=== PATIENT | male | born 1945 | race Caucasian/White ===

== ENCOUNTER 2017-12-27 19:42 | Emergency (ER) | payer MEDICARE ==
[2017-12-27] MEDS: LIDOCAINE/EPI/TETRACAINE TOPICAL GEL 3 ML. TP ×2 (20:07)
[2017-12-27] MEDS ORDERED: LIDOCAINE 2%/EPI 1:100,000 20 ML VIAL. IJ ×2 (20:30)
[2017-12-27] MEDS ORDERED: LIDOCAINE WITH 8.4% SOD BICARB 3 ML DISP.SYRIN. ×2 (20:50)
[2017-12-27] MEDS: LIDOCAINE WITH 8.4% SOD BICARB 3 ML DISP.SYRIN. INJ ×2 (20:50)
== END 2017-12-27 21:15 | disposition home or self-care (01) ==
LOC: ER 19:42
DX: S51.811A Laceration without foreign body of right forearm, initial encounter (principal); E11.9 Type 2 diabetes mellitus without complications; E78.00 Pure hypercholesterolemia, unspecified; J44.9 Chronic obstructive pulmonary disease, unspecified; W27.8XXA Contact with other nonpowered hand tool, initial encounter; Y93.89 Activity, other specified; Y99.8 Other external cause status; Y92.89 Other specified places as the place of occurrence of the external cause
CPT/HCPCS: 12001; 99283-25

== ENCOUNTER 2018-07-07 19:41 | Inpatient (IN) | payer MEDICARE ==
[~2018-07-07] VITALS: Ht 182.9 cm; Wt 98.0 kg
[~2018-07-07 19:41] MED LIST: ALBU2.5V5 NEB; ALPR1TAB2 PO; ASPI-612 PO; ATOR10TA PO; CHOL500016 PO; DOXA4TAB3 PO; FURO-68 PO; HYDR-2762 PO; INSU100I13 SQ; LEVO500T59 PO; METF10007 PO; PROAIR HFA8.5 GM INH; SERT25TA PO; SPIR25TA5 PO; TIOT18CA IH; TRAZ-85 PO
--- NOTE | 2018-07-07 19:55 | PHYS DOC ---
Past Medical History Past Medical History: Anxiety, Arthritis, COPD, Depression, Diabetes-Type II, High Cholesterol Additional Past Medical Histor: INSOMNIA Past Surgical History: No Surgical History Alcohol Use: Sober Drug Use: None Adult General Chief Complaint Chief Complaint: fall, injury HPI HPI Patient is a 73-year-old who lives independently who presents to the emergency department for evaluation. He states he got out of bed to go check for the male , and states he got dizzy at the door, and fell to the ground. He did not lose consciousness but he injured his left ankle. EMS reported a deformity to the left ankle. The patient does have lateral rotation of the foot relative to the ankle on the left. He denies any other painful areas or injuries. He denies having a syncopal episode. EMS found the patient's blood glucose in the 60s and did administer some dextrose. The patient denies any head injury or headache, neck pain, back pain, or any other extremity injury. He was given 8 mg of morphine by EMS in route. Palpation of the foot worsens the patient's pain. There are no alleviating factors to his symptoms. Review of Systems Review of Systems Constitutional: Denies fever or chills [] Eyes: Denies change in visual acuity, redness, or eye pain [] HENT: Denies nasal congestion or sore throat [] Respiratory: Denies cough or shortness of breath [] Cardiovascular: The patient denies any shortness of breath, chest pain, palpitations, or orthopnea [] GI: Denies abdominal pain, nausea, vomiting, bloody stools or diarrhea [] : Denies dysuria or hematuria [] Musculoskeletal: Denies back pain or joint pain, except as noted in the history of present illness. [] Integument: Denies rash or skin lesions [] Neurologic: Denies headache, focal weakness or sensory changes [] Endocrine: Denies polyuria or polydipsia [] All other systems were reviewed and found to be within normal limits, except as documented in this note. Current Medications Current Medications Current Medications Medications (Trade) Dose Ordered Sig/Rajendra Start Time Stop Time Status Last Admin Dose Admin Dextrose/Lactated Ringer's 1,000 ml @ 75 mls/hr 1X ONCE 07/07/18 20:00 07/08/18 09:19 07/07/18 20:00 75 MLS/HR Morphine Sulfate (Morphine Sulfate) 5 mg Q2H PRN 07/07/18 20:00 07/07/18 20:35 5 MG Sodium Chloride 1,000 ml @ 1,000 mls/hr 1X ONCE 07/07/18 21:00 07/07/18 21:59 DC 07/07/18 20:43 1,000 MLS/HR Allergies Allergies Allergies Coded Allergies Type Severity Reaction Last Updated Verified No Known Drug Allergies 09/24/16 No Physical Exam Physical Exam PHYSICAL EXAM: CONSTITUTIONAL: Well developed, well nourished HEAD: normocephalic, atraumatic EENT: PERRL, EOMI. Conjunctivae normal color, sclerae non-icteric; moist mucous membranes. NECK: Supple, non-tender; no meningismus. There is full, painless range of motion of the cervical spine, without any focal bony midline tenderness to palpation. LUNGS: Lungs CTA, breathing even and unlabored. Normal air movement. HEART: Regular rate and rhythm, no murmur CHEST: No deformity; non-tender ABDOMEN: The abdomen is soft, and non-tender, no masses or bruits. EXTREM: Normal ROM; no deformity, no calf tenderness. Normal pulses palpable in all extremities. There is no pedal edema. There is soft tissue swelling in the area of the left ankle, with some tenderness to palpation. There is lateral rotation of the foot relative to the ankle. The foot itself is nontender. Distal PMS are intact on the foot, with a strong dorsalis pedis pulse. SKIN: No rash; no diaphoresis NEURO: Alert; normal speech and cognition; CN's grossly intact; strength grossly intact without focal deficit. BACK: No CVA TTP.There is no bony tenderness to palpation of the thoracic or lumbar spine. Current Patient Data Vital Signs Vital Signs Date Time Temp Pulse Resp B/P (MAP) Pulse Ox O2 Delivery O2 Flow Rate FiO2 07/07/18 20:06 96 18 96 07/07/18 19:55 98.0 117/75 (89) Room Air 98.0 Lab Values Laboratory Tests Test 07/07/18 20:20 White Blood Count 12.9 x10^3/uL (4.0-11.0) H Red Blood Count 4.67 x10^6/uL (4.30-5.70) Hemoglobin 13.9 g/dL (13.0-17.5) Hematocrit 42.4 % (39.0-53.0) Mean Corpuscular Volume 91 fL (79-100) Mean Corpuscular Hemoglobin 30 pg (25-35) Mean Corpuscular Hemoglobin Concent 33 g/dL (31-37) Red Cell Distribution Width 15.5 % (11.5-14.5) H Platelet Count 219 x10^3/uL (140-400) Neutrophils (%) (Auto) 73 % (31-73) Lymphocytes (%) (Auto) 19 % (24-48) L Monocytes (%) (Auto) 6 % (0-9) Eosinophils (%) (Auto) 1 % (0-3) Basophils (%) (Auto) 0 % (0-3) Neutrophils # (Auto) 9.4 x10^3uL (1.8-7.7) H Lymphocytes # (Auto) 2.5 x10^3/uL (1.0-4.8) Monocytes # (Auto) 0.8 x10^3/uL (0.0-1.1) Eosinophils # (Auto) 0.1 x10^3/uL (0.0-0.7) Basophils # (Auto) 0.1 x10^3/uL (0.0-0.2) Prothrombin Time 12.9 SEC (11.7-14.0) Prothrombin Time INR 1.0 (0.8-1.1) Sodium Level 140 mmol/L (136-145) Potassium Level 4.5 mmol/L (3.5-5.1) Chloride Level 108 mmol/L (98-107) H Carbon Dioxide Level 17 mmol/L (21-32) L Anion Gap 15 (6-14) H Blood Urea Nitrogen 13 mg/dL (8-26) Creatinine 1.2 mg/dL (0.7-1.3) Estimated GFR (Cockcroft-Gault) 59.7 Glucose Level 73 mg/dL (70-99) Calcium Level 9.3 mg/dL (8.5-10.1) Laboratory Tests 07/07/18 20:20 Laboratory Tests 07/07/18 20:20 EKG EKG [Normal sinus rhythm at a rate of 98 bpm, normal axis, normal intervals, nonspecific ST/T changes.] Radiology/Procedures Radiology/Procedures [PROCEDURE: ANKLE LEFT 2V Indication:LEFT ANKLE PAIN AFTER FALL TODAY TECHNIQUE: 2 views of the left ankle COMPARISON:None FINDINGS: Multifragment fracture is seen of the distal diaphysis of the tibia and fibula with moderate displacement. Ankle mortise is intact. The fracture does not seem to extend to the articular surface. Moderate ankle edema. IMPRESSION: Multifragment fracture of the tibia and fibula.] ER physician preliminary chest x-ray interpretation: No acute disease. PROCEDURE: CT LOWER EXTREMITY WO LEFT PQRS Compliance statement: One or more of the following individualized dose reduction techniques were utilized for this examination: 1. Automated exposure control. 2. Adjustment of the mA and/or kV according to patient size. 3. Use of iterative reconstruction technique. INDICATION: Left leg injury. TECHNIQUE: CT of the left leg without IV contrast COMPARISON: None FINDINGS: Moderately displaced multifragment fracture is seen of the distal tibial diaphysis with no extension to the articular surface. Moderately displaced Multifragment fracture is seen of the distal fibular diaphysis with no extension to the ankle mortise. Ankle mortise is intact. Nondisplaced fractures are seen of the proximal metaphysis of the second, third, fourth metacarpals. No fracture of the proximal tibia or fibula. Knee joint is intact. Soft tissue swelling seen in the lower leg the region of fracture. IMPRESSION: 1. Fracture of the distal diaphysis of the tibia and fibula as described above. 2. Nondisplaced fractures of the proximal metaphysis of the second-fourth metatarsal. Course & Med Decision Making Course & Med Decision Making Pertinent Labs and Imaging studies reviewed. (See chart for details) 9:10 PM: The patient's condition remains stable at this time. A posterior short leg splint with a stirrup has been applied. PMS intact distally post-splint application. I spoke with orthopedics, nurse practitioner for Dr. Villatoro, who requested a CT and the patient will be admitted for treatment. The hospitalist will admit the patient. The patient is noted to have a mild anion gap acidosis. He is currently normotensive. The exact etiology of this is uncertain. Blood cultures and urinalysis and lactic acid will be checked. 11:35 PM: The patient remained hemodynamically stable. His lactic acid is noted to be elevated, the exact etiology of this is unknown at this time. The patient will be given empiric and biotics and IV hydration. His throat was reassessed, he remains with a normal pulse. He has no other painful areas at this time. He remains nontoxic appearing, with a blood pressure of 138 over 67, heart rate of 74 CRITICAL CARE TIME: 45 Minutes, excluding any procedures and care of other patients. Dragon Disclaimer Dragon Disclaimer This electronic medical record was generated, in whole or in part, using a voice recognition dictation system. Departure Departure Impression: Primary Impression: Fracture of distal end of tibia with fibula Disposition: ADMITTED INPATIENT Admitting Physician: Elvis Obrien Condition: STABLE Referrals: YI LAURENT MD (PCP) ZACH MARCELO MD Jul 07, 2018 19:55
[2018-07-07] MEDS ORDERED: IV DEXTROSE 5%-LACT RINGERS 1,000 ML IV ONE ×2 (20:00→21:45)
[2018-07-07 20:29] LABS: BASO # 0.1 x10^3/uL (0.0-0.2); BASO % 0 % (0-3); EOS # 0.1 x10^3/uL (0.0-0.7); EOS % 1 % (0-3); HEMATOCRIT 42.4 % (39.0-53.0); HEMOGLOBIN 13.9 g/dL (13.0-17.5); LYMPH # 2.5 x10^3/uL (1.0-4.8); LYMPH % 19 % (24-48); MEAN CORPUSCULAR HEMOGLOBIN 30 pg (25-35); MEAN CORPUSCULAR HGB CONC 33 g/dL (31-37); MEAN CORPUSCULAR VOLUME 91 fL (79-100); MONO # 0.8 x10^3/uL (0.0-1.1); MONO % 6 % (0-9); NEUT # 9.4 x10^3uL (1.8-7.7); NEUT % 73 % (31-73); PLATELET COUNT 219 x10^3/uL (140-400); RED BLOOD COUNT 4.67 x10^6/uL (4.30-5.70); RED CELL DISTRIBUTION WIDTH 15.5 % (11.5-14.5); WHITE BLOOD COUNT 12.9 x10^3/uL (4.0-11.0)
[2018-07-07 20:34] LABS: PROTHROMBIN TIME PATIENT 12.9 SEC (11.7-14.0)
[2018-07-07] MEDS: MORPHINE SULFATE 10 MG/ML VIAL. IV PRN ×2 (20:35→22:51)
--- NOTE | 2018-07-07 20:35 | RAD ---
Indication:LEFT ANKLE PAIN AFTER FALL TODAY TECHNIQUE: 2 views of the left ankle COMPARISON:None FINDINGS: Multifragment fracture is seen of the distal diaphysis of the tibia and fibula with moderate displacement. Ankle mortise is intact. The fracture does not seem to extend to the articular surface. Moderate ankle edema. IMPRESSION: Multifragment fracture of the tibia and fibula. Electronically signed by: Moreno Woodall DO (07/07/2018 8:32 PM) [facility]
[2018-07-07 20:43] LABS: CALCIUM 9.3 mg/dL (8.5-10.1); CREATININE 1.2 mg/dL (0.7-1.3); GFR 59.7; POTASSIUM 4.5 mmol/L (3.5-5.1)
[2018-07-07] MEDS ORDERED: IV NORMAL SALINE 1000ML BAG 1,000 ML IV ONE (21:00)
--- NOTE | 2018-07-07 21:28 | RAD ---
PQRS Compliance statement: One or more of the following individualized dose reduction techniques were utilized for this examination: 1. Automated exposure control. 2. Adjustment of the mA and/or kV according to patient size. 3. Use of iterative reconstruction technique. INDICATION: Left leg injury. TECHNIQUE: CT of the left leg without IV contrast COMPARISON: None FINDINGS: Moderately displaced multifragment fracture is seen of the distal tibial diaphysis with no extension to the articular surface. Moderately displaced Multifragment fracture is seen of the distal fibular diaphysis with no extension to the ankle mortise. Ankle mortise is intact. Nondisplaced fractures are seen of the proximal metaphysis of the second, third, fourth metacarpals. No fracture of the proximal tibia or fibula. Knee joint is intact. Soft tissue swelling seen in the lower leg the region of fracture. IMPRESSION: 1. Fracture of the distal diaphysis of the tibia and fibula as described above. 2. Nondisplaced fractures of the proximal metaphysis of the second-fourth metatarsal. Electronically signed by: Moreno Woodall DO (07/07/2018 9:25 PM) [facility]
--- NOTE | 2018-07-07 21:52 | RAD ---
PROCEDURE: PORTABLE CHEST 1V CLINICAL INDICATION: LEFT ANKLE PAIN AFTER FALL COMPARISON: 09/24/2016 FINDINGS: No pneumothorax identified. Cardiac and mediastinal contours unremarkable. No pulmonary consolidation or acute airspace disease. No acute osseous abnormalities identified. IMPRESSION: No pulmonary consolidation or acute airspace disease. Electronically signed by: Moreno Woodall DO (07/07/2018 9:49 PM) [facility]
[2018-07-07 23:45] VITALS: BP 142/74
[2018-07-07] MEDS: IV NORMAL SALINE 1000ML BAG 1,000 ML IV SCH (23:45)
[2018-07-08] MEDS: MORPHINE SULFATE 10 MG/ML VIAL. IV PRN ×5 (00:39→10:42)
[2018-07-08] MEDS: IV NORMAL SALINE 1000ML BAG 1,000 ML IV SCH ×2 (00:54)
[2018-07-08] MEDS ORDERED: cefTRIAXone IV Push 1 GM VIAL. IVP ONE (01:00)
[2018-07-08 03:00] VITALS: BP 99/53
--- NOTE | 2018-07-08 06:22 | EKG ---
[facility] [address] [place] [address] Test Date: 2018-07-07 Test Time: 19:50:22 Pat Name: MARTINE PICHARDO Department: Room: 436 Gender: M [employer]order [employer]: : 1945 Requested By: ZACH MARCELO Order Number: [id number] Reading MD: Marck Perez MD Measurements Intervals [place] Rate: 98 P: 70 [place]: 156 QRS: 12 QRSD: 92 T: 49 QT: 370 QTc: 474 Interpretive Statements SINUS RHYTHM Electronically Signed On 07-12-2018 11:46:15 CDT by Marck Perez MD
[2018-07-08 07:00] VITALS: BP 122/49
[2018-07-08 07:02] LABS: BASO % 0 % (0-3); EOS # 0.1 x10^3/uL (0.0-0.7); EOS % 1 % (0-3); HEMATOCRIT 35.3 % (39.0-53.0); HEMOGLOBIN 11.7 g/dL (13.0-17.5); LYMPH # 2.3 x10^3/uL (1.0-4.8); LYMPH % 24 % (24-48); MEAN CORPUSCULAR HEMOGLOBIN 30 pg (25-35); MEAN CORPUSCULAR HGB CONC 33 g/dL (31-37); MEAN CORPUSCULAR VOLUME 91 fL (79-100); MONO % 11 % (0-9); NEUT # 6.2 x10^3uL (1.8-7.7); NEUT % 64 % (31-73); PLATELET COUNT 173 x10^3/uL (140-400); RED BLOOD COUNT 3.88 x10^6/uL (4.30-5.70); RED CELL DISTRIBUTION WIDTH 15.2 % (11.5-14.5); WHITE BLOOD COUNT 9.6 x10^3/uL (4.0-11.0)
[2018-07-08 07:14] LABS: ALBUMIN 2.7 g/dL (3.4-5.0); ALBUMIN/GLOBULIN RATIO 0.9 (1.0-1.7); CREATININE 1.1 mg/dL (0.7-1.3); TOTAL BILIRUBIN 0.4 mg/dL (0.2-1.0); TOTAL PROTEIN 5.7 g/dL (6.4-8.2)
[2018-07-08] MEDS ORDERED: IV RINGERS,LACTATED 1000ML 1,000 ML IV SCH (09:03)
[2018-07-08] MEDS ORDERED: ONDANSETRON PF 4 MG/2 ML VIAL. IV PRN ×2 (09:15→17:15)
[2018-07-08] MEDS ORDERED: fentaNYL PF VIAL 100 MCG/2 ML VIAL IV PRN ×2 (09:15→17:15)
[2018-07-08] MEDS ORDERED: LIDOCAINE 1% PF 2 ML VIAL. ID PRN (09:15)
[2018-07-08] MEDS ORDERED: MORPHINE SULFATE 2 MG/ML VIAL. IV PRN ×2 (09:15→17:15)
[2018-07-08] MEDS ORDERED: HYDROmorphone 2 MG/ML VIAL IV PRN (09:15)
[2018-07-08 11:00] VITALS: BP 92/48
[2018-07-08] MEDS ORDERED: BUPIVACAINE-EPI 0.25%-1:200000 50 ML VIAL. ONE (11:39)
[2018-07-08] MEDS ORDERED: LIDOCAINE 2% PF Vial for OR 5 ML VIAL. ONE (12:25)
[2018-07-08] MEDS ORDERED: ONDANSETRON PF 4 MG/2 ML VIAL. ONE (12:26)
[2018-07-08] MEDS ORDERED: PROPOFOL 20 ML IV ONE (12:26)
[2018-07-08] MEDS ORDERED: DEXAMETHASONE SOD PHOS 20 MG/5 ML VIAL. ONE (12:26)
[2018-07-08] MEDS ORDERED: fentaNYL PF VIAL 100 MCG/2 ML VIAL ONE ×2 (12:26→14:26)
[2018-07-08] MEDS ORDERED: ROCURONIUM 50 MG/5 ML VIAL. ONE ×2 (12:57→14:46)
[2018-07-08 14:03] LABS: BILIRUBIN,URINE SMALL (NEG); CLARITY,URINE TURBID; COLOR,URINE YELLOW; NITRITE,URINE NEGATIVE (NEG); PH,URINE 5.5; PROTEIN,URINE NEGATIVE (NEG-TRACE); UROBILINOGEN,URINE 0.2 mg/dL (0.2 mg/dL)
[2018-07-08 14:26] LABS: AMORPHOUS SEDIMENT,UR PRESENT /HPF; BACTERIA,URINE 0 /HPF (0-FEW); RBC,URINE 0 /HPF (0-2); WBC,URINE 0 /HPF (0-4)
--- NOTE | 2018-07-08 15:51 | HP ---
ADMIT DATE: CHIEF COMPLAINT: Fall with left ankle pain. HISTORY OF PRESENT ILLNESS: The patient is a pleasant 73-year-old male who was standing. He tried to get out of bed to check the mail and got dizzy and fell to the floor. He twisted his ankle, he has got a tib-fib fracture. He rates his pain a 10/10. He has associated weakness, worse with moving. I have discussed the case with the ER physician. We are going to admit the patient and consult Orthopedics. The patient is probably on surgery today. PAST MEDICAL HISTORY: Anxiety, arthritis, COPD, depression, diabetes, hyperlipidemia, and insomnia. ALLERGIES: None. FAMILY HISTORY: Coronary artery disease. SOCIAL HISTORY: He is retired. He does not drink, smoke or take drugs. I think he lives alone. MEDICATIONS: Reviewed, please refer to the MRAD. REVIEW OF SYSTEMS: GENERAL: No history of weight change, weakness or fevers. SKIN: No bruising, hair changes or rashes. EYES: No blurred, double or loss of vision. NOSE AND THROAT: No history of nosebleeds, hoarseness or sore throat. HEART: No history of palpitations, chest pain or shortness of breath on exertion. LUNGS: Denies cough, hemoptysis, wheezing or shortness of breath. GASTROINTESTINAL: Denies changes in appetite, nausea, vomiting, diarrhea or constipation. GENITOURINARY: No history of frequency, urgency, hesitancy or nocturia. NEUROLOGIC: Denies history of numbness, tingling, tremor or weakness. PSYCHIATRIC: No history of panic, anxiety or depression. ENDOCRINE: No history of heat or cold intolerance, polyuria or polydipsia. EXTREMITIES: He complains of left ankle pain. PHYSICAL EXAMINATION: VITAL SIGNS: Temperature afebrile, pulse 76, respirations 20, blood pressure 137/94. GENERAL: He is alert, cooperative, weak. HEART: Normal S1, S2. LUNGS: Clear. ABDOMEN: Soft. EXTREMITIES: Left lower extremity is in a brace. ENDOCRINE: No thyromegaly. LYMPHATICS: No cervical nodes. HEMATOPOIETIC: No bruising. LABORATORY DATA: Hemoglobin is 13.9. Electrolytes are essentially normal. White count is a little high at 12. ASSESSMENT AND PLAN: Distal tibia-fibula fracture. The patient has been admitted. We will consult Orthopedics, p.r.n. narcotics, IV fluids, try to resume his home meds. Postoperatively, he is going to need wound care, aggressive physical therapy, occupational therapy and probably alf. GIL KRAUSE DO DR: KAILYN/dara JOB#: [id number] / [id number]
[2018-07-08] MEDS ORDERED: NEOSTIGMINE 10 MG/10 ML VIAL. ONE (16:26)
[2018-07-08] MEDS ORDERED: GLYCOPYRROLATE 1 MG/5 ML VIAL. ONE (16:26)
[2018-07-08] MEDS ORDERED: SEVOFLURANE > 120 MINUTES. IH ONE (16:30)
[2018-07-08] MEDS ORDERED: oxyCODONE IR 5 MG TABLET PO PRN (17:15)
[2018-07-08] MEDS ORDERED: POLYETHYLENE GLYCOL 3350 17 GM PACKET. PO PRN (17:15)
[2018-07-08] MEDS ORDERED: DEXTROSE 50% 25 GM / 50ML DISP.SYRIN. IV PRN (17:15)
[2018-07-08] MEDS ORDERED: MORPHINE SULFATE 2 MG/ML VIAL. ONE (17:17)
--- NOTE | 2018-07-08 17:17 | PDOC2 ---
CONSULT Date of Consult Date of Consult DATE: 07/08/18 TIME: 17:16 Reason for Consult Reason for Consult: Left tibia and fibula fractures Identification/Chief Complaint Chief Complaint Left leg pain Source Source: Chart review, Patient History of Present Illness Reason for Visit: This 73-year-old man to check for the mail, and fell. He had a deformity of the leg was brought to the hospital by EMS. He reports pain in the ankle. He normally uses a rolling walker or a cane, due to multiple issues perhaps hip arthritis. He is retired and lives alone. He still drives. 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 ALCOHOL: rare Drugs: None Lives: Alone Current Problem List Problem List Problems Medical Problems: (1) Fracture of distal end of tibia with fibula Status: Acute Current Medications Current Medications Current Medications Dextrose/Lactated Ringer's 1,000 ml @ 75 mls/hr 1X ONCE IV Last administered on 07/07/18at 20:00; Start 07/07/18 at 20:00; Stop 07/08/18 at 09:19; Status DC Morphine Sulfate (Morphine Sulfate) 5 mg Q2H PRN IV pain Last administered on at 10:42; Start 07/07/18 at 20:00 Sodium Chloride 1,000 ml @ 1,000 mls/hr 1X ONCE IV Last administered on at 20:43; Start 07/07/18 at 21:00; Stop 07/07/18 at 21:59; Status DC Dextrose/Lactated Ringer's 1,000 ml @ 125 mls/hr 1X ONCE IV Last administered on 07/07/18at 21:45; Start 07/07/18 at 21:45; Stop 07/08/18 at 05:44 ; Status DC Sodium Chloride 1,000 ml @ 1,000 mls/hr Q1H IV Last administered on 07/08/18at 00:54; Start 07/07/18 at 23:00; Stop 07/08/18 at 01:19; Status DC Ceftriaxone Sodium 50 ml @ 100 mls/hr 1X ONCE IV ; Start 07/07/18 at 23:00; Stop 07/07/18 at 23:29; Status Cancel Ceftriaxone Sodium (Rocephin) 1 gm 1X ONCE IVP Last administered on 07/08/18at 01:00; Start 07/08/18 at 01:00; Stop 07/08/18 at 01:01; Status DC Ondansetron HCl (Zofran) 4 mg PRN Q6HRS PRN IV NAUSEA/VOMITING; Start 07/08/18 at 09:15; Stop 07/08/18 at 23:00 Fentanyl Citrate (Fentanyl 2ml Vial) 25 mcg PRN Q5MIN PRN IV MILD PAIN; Start 07/08/18 at 09:15; Stop 07/08/18 at 23:00 Fentanyl Citrate (Fentanyl 2ml Vial) 50 mcg PRN Q5MIN PRN IV MODERATE TO SEVERE PAIN; Start 07/08/18 at 09:15; Stop 07/08/18 at 23:00 Morphine Sulfate (Morphine Sulfate) 1 mg PRN Q10MIN PRN IV SEVERE PAIN; Start 07/08/18 at 09:15; Stop 07/08/18 at 23:00 Ringer's Solution 1,000 ml @ 30 mls/hr Q24H IV Last administered on 07/08/18at 13:24; Start 07/08/18 at 09:03; Stop 07/08/18 at 21:02 Lidocaine HCl (Xylocaine-Mpf 1% 2ml Vial) 2 ml 1X PRN PRN ID IV START; Start at 09:15; Stop 07/08/18 at 23:00 Hydromorphone HCl (Dilaudid) 0.5 mg PRN Q10MIN PRN IV SEV PAIN, Second choice; Start 07/08/18 at 09:15; Stop 07/08/18 at 23:00 Prochlorperazine Edisylate (Compazine) 5 mg PACU PRN PRN IV NAUSEA, MRX1; Start 07/08/18 at 09:15; Stop 07/08/18 at 23:00 Lidocaine HCl (Lidocaine Pf 2% Vial) 5 ml STK-MED ONCE .ROUTE ; Start 07/08/18 at 12:25; Stop 07/08/18 at 12:26; Status DC Propofol 20 ml @ As Directed STK-MED ONCE IV ; Start 07/08/18 at 12:26; Stop at 12:27; Status DC Dexamethasone Sodium Phosphate (Decadron) 20 mg STK-MED ONCE .ROUTE ; Start at 12:26; Stop 07/08/18 at 12:27; Status DC Ondansetron HCl (Zofran) 4 mg STK-MED ONCE .ROUTE ; Start 07/08/18 at 12:26; Stop 07/08/18 at 12:27; Status DC Fentanyl Citrate (Fentanyl 2ml Vial) 100 mcg STK-MED ONCE .ROUTE ; Start at 12:26; Stop 07/08/18 at 12:27; Status DC Bupivacaine HCl/ Epinephrine Bitart (Marcaine-Epi 0.25%-[id number]) 50 ml STK-MED ONCE .ROUTE Last administered on 07/08/18at 16:30; Start 07/08/18 at 11:39; Stop 07/08/18 at 12:39; Status DC Rocuronium [place] (Zemuron) 50 mg STK-MED ONCE .ROUTE ; Start 07/08/18 at 12:57 ; Stop 07/08/18 at 12:58; Status DC Cefazolin Sodium/ Dextrose 50 ml @ 100 mls/hr 1X ONCE IV Last administered on 07/08/18at 14:17; Start 07/08/18 at 13:30; Stop 07/08/18 at 13:59; Status DC Fentanyl Citrate (Fentanyl 2ml Vial) 100 mcg STK-MED ONCE .ROUTE ; Start at 14:26; Stop 07/08/18 at 14:27; Status DC Rocuronium [place] (Zemuron) 50 mg STK-MED ONCE .ROUTE ; Start 07/08/18 at 14:46 ; Stop 07/08/18 at 14:47; Status DC Cefazolin Sodium/ Dextrose 50 ml @ 100 mls/hr 1X ONCE IV Last administered on 07/08/18at 16:01; Start 07/08/18 at 16:00; Stop 07/08/18 at 16:29; Status DC Glycopyrrolate (Robinul) 1 mg STK-MED ONCE .ROUTE ; Start 07/08/18 at 16:26; Stop 07/08/18 at 16:27; Status DC Neostigmine Methylsulfate (Bloxiverz) 10 mg STK-MED ONCE .ROUTE ; Start at 16:26; Stop 07/08/18 at 16:27; Status DC Sevoflurane (Ultane) 90 ml STK-MED ONCE IH ; Start 07/08/18 at 16:30; Stop 07/08 at 16:31; Status DC Oxycodone HCl (Roxicodone) 5 mg PRN Q3HRS PRN PO PAIN; Start 07/08/18 at 17:15 ; Status UNV Morphine Sulfate (Morphine Sulfate) 2 mg PRN Q1HR PRN IV PAIN; Start 07/08/18 at 17:15; Status UNV Fentanyl Citrate (Fentanyl 2ml Vial) 25 mcg PRN Q1HR PRN IV PAIN; Start at 17:15; Status UNV Senna/Docusate Sodium (Senna Plus) 1 tab DAILY PO ; Start 07/09/18 at 09:00; Status UNV Polyethylene Glycol (miraLAX PACKET) 17 gm PRN DAILY PRN PO CONSTIPATION; Start 07/08/18 at 17:15; Status UNV Vitamin D (Vitamin D3) 2,000 unit DAILY PO ; Start 07/09/18 at 09:00; Status UNV Ondansetron HCl (Zofran) 4 mg PRN Q4HRS PRN IV NAUSEA/VOMITING; Start 07/08/18 at 17:15; Status UNV Aspirin (Aureliano Aspirin) 325 mg DAILYWBKFT PO ; Start 07/09/18 at 08:00; Status UNV Magnesium Hydroxide (Milk Of Magnesia) 2,400 mg 1X PRN PRN PO CONSTIPATION; Start 07/09/18 at 06:00; Stop 07/10/18 at 05:59; Status UNV Bisacodyl (Dulcolax Supp) 10 mg 1X PRN PRN [place] CONSTIPATION; Start 07/09/18 at 16 :00; Stop 07/10/18 at 15:59; Status UNV Acetaminophen/ Hydrocodone Bitart (Lortab 7.5/325) 1 tab PRN Q4HRS PRN PO PAIN ; Start 07/08/18 at 17:15; Status UNV Morphine Sulfate (Morphine Sulfate) 4 mg PRN Q2HR PRN IV PAIN; Start 07/08/18 at 17:15; Status UNV Acetaminophen/ Hydrocodone Bitart (Lortab 7.5/325) 2 tab PRN Q4HRS PRN PO PAIN ; Start 07/08/18 at 17:15; Status UNV Dextrose (Dextrose 50%-Water Syringe) 12.5 gm PRN Q15MIN PRN IV SEE COMMENTS; Start 07/08/18 at 17:15; Status UNV Cefazolin Sodium/ Dextrose 50 ml @ 100 mls/hr Q6H IV ; Start 07/08/18 at 17:15 ; Stop 07/09/18 at 05:44; Status UNV Active Scripts Active Reported Xanax (Alprazolam) 1 Mg Tablet 1 Tab PO PRN BID Hydrocodone-Apap 7.5-325 (Hydrocodone Bit/Acetaminophen) 1 Each Tablet 1 Tab PO PRN Q6HRS PRN Proair Hfa Inhaler (Albuterol Sulfate) 8.5 Gm Hfa.aer.ad 1 Puff INH PRN Q6HRS PRN Albuterol Sulfate Neb Soln (Albuterol Sulfate) 2.5 Mg/3 Ml Vial.neb 5 Mg NEB PRN Q4HRS PRN Doxazosin Mesylate 4 Mg Tablet 4 Mg PO QODAY Lasix (Furosemide) 40 Mg Tablet 40 Mg PO DAILY Lantus Solostar (Insulin Glargine,Hum.rec.anlog) 100 Unit/1 Ml Insuln.pen 25 Unit SQ QHS Metformin Hcl 1,000 Mg Tablet 1,000 Mg PO BIDACBL Spironolactone 25 Mg Tablet 25 Mg PO DAILY Aspirin Ec (Aspirin) 81 Mg Tablet.dr 81 Mg PO DAILY Lipitor (Atorvastatin Calcium) 10 Mg Tablet 5 Mg PO HS Trazodone Hcl 50 Mg Tablet 250 Mg PO HS Zoloft (Sertraline Hcl) 25 Mg Tablet 25 Mg PO DAILY Allergies Allergies: Coded Allergies: No Known Drug Allergies (Unverified , 07/08/18) ROS General: No: Night Sweats PSYCHOLOGICAL ROS: No: Hallucinations Eyes: No Decreased vision HEENT: No: Heacaches Respiratory: No: Cough, Pleuritic Pain, Shortness of breath Cardiovascular: No Chest Pain, No Palpitations Gastrointestinal: No Vomiting, No Abdominal Pain Genitourinary: No Dysuria Musculoskeletal: Yes Joint Pain Neurological: No Behavorial Changes Physical Exam General: Alert, Cooperative HEENT: Atraumatic Lungs: Normal air movement Heart: Regular rate Abdomen: Soft Extremities: No clubbing, No cyanosis, Normal pulses, Other (the left leg is in a splint. Examination beneath the splint showed a blister on the dorsum of the foot, and ecchymosis in the mid leg area. There is no current angular deformity. There is tenderness over the fracture site. The skin over the fracture is intact. His light touch sensation is intact at the toes and he can dorsiflex and plantarflex the toes. Capillary refill is normal.) Skin: Other (ecchymosis over the fracture, no other lesion.) Neuro: Normal speech, Sensation intact Psych/Mental Status: Mental status NL, Mood NL Vitals VITALS Vital Signs Date Time Temp Pulse Resp B/P (MAP) Pulse Ox O2 Delivery O2 Flow Rate FiO2 07/08/18 13:00 99.2 97 20 107/55 95 Room Air 4 99.2 Labs Labs Laboratory Tests Test 07/07/18 12:40 07/07/18 20:20 07/07/18 21:50 07/08/18 06:35 Urine Collection Type Unknown Urine Color Yellow Urine Clarity Turbid Urine pH 5.5 Urine Specific [place] 1.025 Urine Protein Negative mg/dL (NEG-TRACE) Urine Glucose (UA) Negative mg/dL (NEG) Urine Ketones (Stick) Trace mg/dL (NEG) Urine Blood Negative (NEG) Urine Nitrite Negative (NEG) Urine Bilirubin Small (NEG) Urine Urobilinogen Dipstick 0.2 mg/dL (0.2 mg/dL) Urine Leukocyte Esterase Negative (NEG) Urine RBC 0 /HPF (0-2) Urine WBC 0 /HPF (0-4) Urine Amorphous Sediment Present /HPF Urine Bacteria 0 /HPF (0-FEW) White Blood Count 12.9 x10^3/uL (4.0-11.0) 9.6 x10^3/uL (4.0-11.0) Red Blood Count 4.67 x10^6/uL (4.30-5.70) 3.88 x10^6/uL (4.30-5.70) Hemoglobin 13.9 g/dL (13.0-17.5) 11.7 g/dL (13.0-17.5) Hematocrit 42.4 % (39.0-53.0) 35.3 % (39.0-53.0) Mean Corpuscular Volume 91 fL (79-100) 91 fL (79-100) Mean Corpuscular Hemoglobin 30 pg (25-35) 30 pg (25-35) Mean Corpuscular Hemoglobin Concent 33 g/dL (31-37) 33 g/dL (31-37) Red Cell Distribution Width 15.5 % (11.5-14.5) 15.2 % (11.5-14.5) Platelet Count 219 x10^3/uL (140-400) 173 x10^3/uL (140-400) Neutrophils (%) (Auto) 73 % (31-73) 64 % (31-73) Lymphocytes (%) (Auto) 19 % (24-48) 24 % (24-48) Monocytes (%) (Auto) 6 % (0-9) 11 % (0-9) Eosinophils (%) (Auto) 1 % (0-3) 1 % (0-3) Basophils (%) (Auto) 0 % (0-3) 0 % (0-3) Neutrophils # (Auto) 9.4 x10^3uL (1.8-7.7) 6.2 x10^3uL (1.8-7.7) Lymphocytes # (Auto) 2.5 x10^3/uL (1.0-4.8) 2.3 x10^3/uL (1.0-4.8) Monocytes # (Auto) 0.8 x10^3/uL (0.0-1.1) 1.0 x10^3/uL (0.0-1.1) Eosinophils # (Auto) 0.1 x10^3/uL (0.0-0.7) 0.1 x10^3/uL (0.0-0.7) Basophils # (Auto) 0.1 x10^3/uL (0.0-0.2) 0.0 x10^3/uL (0.0-0.2) Prothrombin Time 12.9 SEC (11.7-14.0) Prothromb Time International Ratio 1.0 (0.8-1.1) Sodium Level 140 mmol/L (136-145) 140 mmol/L (136-145) Potassium Level 4.5 mmol/L (3.5-5.1) 4.0 mmol/L (3.5-5.1) Chloride Level 108 mmol/L (98-107) 108 mmol/L (98-107) Carbon Dioxide Level 17 mmol/L (21-32) 24 mmol/L (21-32) Anion Gap 15 (6-14) 8 (6-14) Blood Urea Nitrogen 13 mg/dL (8-26) 11 mg/dL (8-26) Creatinine 1.2 mg/dL (0.7-1.3) 1.1 mg/dL (0.7-1.3) Estimated GFR (Cockcroft-Gault) 59.7 66.0 Glucose Level 73 mg/dL (70-99) 125 mg/dL (70-99) Calcium Level 9.3 mg/dL (8.5-10.1) 8.0 mg/dL (8.5-10.1) Lactic Acid Level 5.0 mmol/L (0.4-2.0) 1.0 mmol/L (0.4-2.0) BUN/Creatinine Ratio 10 (6-20) Total Bilirubin 0.4 mg/dL (0.2-1.0) Aspartate Amino Transf (AST/SGOT) 12 U/L (15-37) Alanine Aminotransferase (ALT/SGPT) 15 U/L (16-63) Alkaline Phosphatase 80 U/L (46-116) Total Protein 5.7 g/dL (6.4-8.2) Albumin 2.7 g/dL (3.4-5.0) Albumin/Globulin Ratio 0.9 (1.0-1.7) 25-Hydroxy Vitamin D Total 39.0 ng/mL (30-100) Test 07/08/18 13:37 Glucose (Fingerstick) 116 mg/dL (70-99) Laboratory Tests Test 07/07/18 20:20 07/07/18 21:50 07/08/18 06:35 07/08/18 13:37 White Blood Count 12.9 x10^3/uL (4.0-11.0) 9.6 x10^3/uL (4.0-11.0) Red Blood Count 4.67 x10^6/uL (4.30-5.70) 3.88 x10^6/uL (4.30-5.70) Hemoglobin 13.9 g/dL (13.0-17.5) 11.7 g/dL (13.0-17.5) Hematocrit 42.4 % (39.0-53.0) 35.3 % (39.0-53.0) Mean Corpuscular Volume 91 fL (79-100) 91 fL (79-100) Mean Corpuscular Hemoglobin 30 pg (25-35) 30 pg (25-35) Mean Corpuscular Hemoglobin Concent 33 g/dL (31-37) 33 g/dL (31-37) Red Cell Distribution Width 15.5 % (11.5-14.5) 15.2 % (11.5-14.5) Platelet Count 219 x10^3/uL (140-400) 173 x10^3/uL (140-400) Neutrophils (%) (Auto) 73 % (31-73) 64 % (31-73) Lymphocytes (%) (Auto) 19 % (24-48) 24 % (24-48) Monocytes (%) (Auto) 6 % (0-9) 11 % (0-9) Eosinophils (%) (Auto) 1 % (0-3) 1 % (0-3) Basophils (%) (Auto) 0 % (0-3) 0 % (0-3) Neutrophils # (Auto) 9.4 x10^3uL (1.8-7.7) 6.2 x10^3uL (1.8-7.7) Lymphocytes # (Auto) 2.5 x10^3/uL (1.0-4.8) 2.3 x10^3/uL (1.0-4.8) Monocytes # (Auto) 0.8 x10^3/uL (0.0-1.1) 1.0 x10^3/uL (0.0-1.1) Eosinophils # (Auto) 0.1 x10^3/uL (0.0-0.7) 0.1 x10^3/uL (0.0-0.7) Basophils # (Auto) 0.1 x10^3/uL (0.0-0.2) 0.0 x10^3/uL (0.0-0.2) Prothrombin Time 12.9 SEC (11.7-14.0) Prothromb Time International Ratio 1.0 (0.8-1.1) Sodium Level 140 mmol/L (136-145) 140 mmol/L (136-145) Potassium Level 4.5 mmol/L (3.5-5.1) 4.0 mmol/L (3.5-5.1) Chloride Level 108 mmol/L (98-107) 108 mmol/L (98-107) Carbon Dioxide Level 17 mmol/L (21-32) 24 mmol/L (21-32) Anion Gap 15 (6-14) 8 (6-14) Blood Urea Nitrogen 13 mg/dL (8-26) 11 mg/dL (8-26) Creatinine 1.2 mg/dL (0.7-1.3) 1.1 mg/dL (0.7-1.3) Estimated GFR (Cockcroft-Gault) 59.7 66.0 Glucose Level 73 mg/dL (70-99) 125 mg/dL (70-99) Calcium Level 9.3 mg/dL (8.5-10.1) 8.0 mg/dL (8.5-10.1) Lactic Acid Level 5.0 mmol/L (0.4-2.0) 1.0 mmol/L (0.4-2.0) BUN/Creatinine Ratio 10 (6-20) Total Bilirubin 0.4 mg/dL (0.2-1.0) Aspartate Amino Transf (AST/SGOT) 12 U/L (15-37) Alanine Aminotransferase (ALT/SGPT) 15 U/L (16-63) Alkaline Phosphatase 80 U/L (46-116) Total Protein 5.7 g/dL (6.4-8.2) Albumin 2.7 g/dL (3.4-5.0) Albumin/Globulin Ratio 0.9 (1.0-1.7) 25-Hydroxy Vitamin D Total 39.0 ng/mL (30-100) Glucose (Fingerstick) 116 mg/dL (70-99) Images Images X-rays and CT scan show a comminuted tibial shaft fracture. There is also a comminuted distal fibula fracture. The tibia fracture is segmental. CT scan shows no involvement of the tibiotalar joint. Assessment/Plan Assessment/Plan Closed left tibial shaft fracture. Closed left distal fibula fracture. Recommended open treatment and internal fixation of the fibula fracture with plate and screws. I recommended intramedullary nail fixation of the tibia. We discussed potential risks such as infection neurovascular injury bleeding malunion nonunion blood clots or other potential surgical or anesthetic complications. All of his questions about surgery were answered and he desires to proceed. The surgical site was marked by me. AIYANA LEMUS MD Jul 08, 2018 17:17
[2018-07-08] MEDS: PROCHLORPERAZINE 10 MG/2 ML VIAL. IV PRN ×2 (17:30→17:46)
[2018-07-08] MEDS: fentaNYL PF VIAL 100 MCG/2 ML VIAL IV PRN ×2 (17:31→17:46)
--- NOTE | 2018-07-08 17:33 | PDOC4 ---
Operative Note Operative Note Date of Procedure: July 08, 2018 Pre-Op Diagnosis: * Displaced segmental fracture of shaft of left tibia, initial encounter for closed fracture S82.262A. * Displaced segmental fracture of shaft of left fibula, initial encounter for closed fracture S82.462A Post-Op Diagnosis: Same Procedure: * Treatment of tibial shaft fracture by intramedullary implant with interlocking screws CPT 17012 * Treatment of lateral malleolus fracture with plate fixation CPT 12964 Surgeon: Aiyana Villatoro MD City Secretary: Mary Braxton PA-C Anesthesia: General EBL: 200 mL Specimens Obtained: none Complications: none Drains: none Tourniquet time: 25 minutes Implant Company: [employer] Indications for Procedure: This patient is a 73-year-old man who fell, sustaining closed tibia shaft and distal fibula comminuted segmental closed fractures. The patient and I discussed the risks, benefits and alternatives of surgery. I recommended intramedullary fixation for the tibial shaft fracture and I discussed with him the potential risks of that such as bleeding, infection , nonunion, malunion, neurovascular injury, or other potential surgical or anesthetic complications. I discussed internal fixation with plate and screws of the lateral malleolus fracture. All of his questions about surgery were answered and he desired to proceed. Written consent was obtained. Procedure in Detail: The patient was identified in the preoperative holding area. The correct left leg was marked by me. The patient was taken to the operating room where general anesthesia was used. The patient was positioned supine on the operating table. Preoperative antibiotics were given intravenously. A timeout procedure was performed. A tourniquet was used on the upper thigh. The limb was prepped and draped sterilely. Sterile drapes were applied. Sterile glove was placed over the foot. Sterile triangles were used for positioning of the leg. The large image intensifier was used throughout the procedure, and all the images were interpreted intraoperatively by me. The [employer] [place] Distractor was used. A Schanz pin was placed in the proximal tibia. Another Schanz pin was placed in the calcaneus, avoiding neurovascular structures. The image intensifier used, and traction was applied through the distractor, showing anatomic reduction of the tibia fracture. Also a Coban was used around the catheter to help reduce and compress the segmental fragment. A longitudinal incision was made over the patellar tendon. The tendon was retracted laterally, and an entry point along the superior aspect of the tibia and the extra articular portion was identified. An awl was used to spike the tibia, and the entry to the shaft was confirmed on the large image intensifier in the AP and lateral planes. A guide wire was placed down the intramedullary canal to the fracture site. The awl was removed I then advanced the guide wire into the distal fragment, and checked the positioning of the tip of the beaded guide wire ending just above the ankle joint in the AP and lateral planes. A measuring guide was used, and 360 mm was chosen as the nail length. Sequential reaming was then performed, to 1.5 mm greater than the nail size, while maintaining the reduction. Outer gloves were changed and the incisions were irrigated before inserting the hardware.The 10 x 330 mm nail was then inserted without difficulty, and the position just above the ankle joint was confirmed radiographically. The guide wire was removed. The distal locking was now performed with the image intensifier, and 2 cross lock screws were placed. The universal distractor was removed.Proximal locking was placed through the insertion guide, in the static holes. Two bicortical 5.0 mm fully threaded locking screws were placed without difficulty, and confirmed on the image intensifier. The insertion guide was removed. Antibiotics were redosed. Outer gloves were changed. An Esmarch bandage was used to exsanguinate the limb and the tourniquet was inflated to 350 mmHg. A lateral incision was used over the distal portion of the lateral malleolus. Sharp dissection was used and Bovie electrocautery was used for hemostasis. Comminuted multi fragmentary fracture was identified. This was not able to be reduced with complete interdigitation due to the extensive fragmentation. I did a preliminary reduction, using the contours of the fibula and the assess the length and rotation radiographically. A precontoured Franc lateral malleolus locking plate was attached to the proximal and distal fragments initially using the nonlocking screws for good compression of the plate to the bone. In the distal fragment locking screws were applied and the initial nonlocking screw was removed and replaced with a locking screw. Nonlocking screws were allowed to stay in the proximal fragment and the shaft, but additional locking screws were used. Satisfactory reduction and fixation was obtained. Copious irrigation was used. Bovie electrocautery was used for hemostasis. A preliminary closure was performed of the deep fascia using #1 Vicryl [id number] sutures. The tourniquet was released. Bovie electrocautery was used for hemostasis. Copious irrigation was used. The incisions were closed in layers. #1 Vicryl was used in [id number] fashion in the parapatellar tendon fascia. 2-0 Vicryl was used in the subcutaneous cutaneous tissues by Mary. She then closed the skin with ganesh. She injected 0.25% Marcaine with epinephrine. She placed a sterile dressing and a splint. Needle and sponge counts were correct. There were no apparent complications. AIYANA VILLATORO MD Jul 08, 2018 17:33
--- NOTE | 2018-07-08 17:57 | RAD ---
Indication: Postop ORIF. TECHNIQUE: AP and lateral views of the left tibia and fibula COMPARISON: Previous study from 07/07/2018 FINDINGS: Status post ORIF of distal tibial fracture with intramedullary gomez. Status post ORIF of distal fibular fracture with plate and screws. The fracture fragments demonstrate improved alignment compared to previous study. Ankle mortise is intact. Diffuse leg edema. IMPRESSION: Expected post surgical changes from recent ORIF of distal tibial and fibular fracture. Electronically signed by: Moreno Woodall DO (07/08/2018 5:54 PM) [facility]
[2018-07-08] MEDS ORDERED: ALBUTEROL SULFATE 2.5 MG/3 ML NEBU. NEB ONE (18:30)
[2018-07-08 19:00] VITALS: BP 91/51
[2018-07-08] MEDS: MORPHINE SULFATE 4 MG/ML VIAL. IV PRN ×2 (21:21→23:53)
[2018-07-08 23:00] VITALS: BP 104/54
[2018-07-09] MEDS: MORPHINE SULFATE 4 MG/ML VIAL. IV PRN ×4 (02:08→13:35)
[2018-07-09] MEDS: HYDROcodone/APAP 7.5/325MG 1 TAB TABLET PO PRN ×4 (02:09→20:56)
[2018-07-09 03:00] VITALS: BP 96/56
[2018-07-09 05:31] LABS: BASO % 0 % (0-3); EOS % 0 % (0-3); HEMATOCRIT 28.9 % (39.0-53.0); HEMOGLOBIN 9.6 g/dL (13.0-17.5); LYMPH # 1.5 x10^3/uL (1.0-4.8); LYMPH % 12 % (24-48); MEAN CORPUSCULAR HEMOGLOBIN 30 pg (25-35); MEAN CORPUSCULAR HGB CONC 33 g/dL (31-37); MEAN CORPUSCULAR VOLUME 92 fL (79-100); MONO # 1.5 x10^3/uL (0.0-1.1); MONO % 12 % (0-9); NEUT # 9.7 x10^3uL (1.8-7.7); NEUT % 77 % (31-73); PLATELET COUNT 175 x10^3/uL (140-400); RED BLOOD COUNT 3.15 x10^6/uL (4.30-5.70); RED CELL DISTRIBUTION WIDTH 14.7 % (11.5-14.5); WHITE BLOOD COUNT 12.6 x10^3/uL (4.0-11.0)
[2018-07-09 05:52] LABS: CALCIUM 7.9 mg/dL (8.5-10.1); GFR 73.7; POTASSIUM 4.3 mmol/L (3.5-5.1)
[2018-07-09] MEDS ORDERED: MAGNESIUM HYDROXIDE 2,400 MG/30 ML ORAL.SUSP. PO PRN (06:00)
[2018-07-09 07:00] VITALS: BP 101/44
[2018-07-09] MEDS: ASPIRIN 325 MG TABLET PO SCH (08:33)
[2018-07-09] MEDS: SENNOSIDES/DOCUSATE 8.6/50MG TABLET. PO SCH (08:34)
[2018-07-09] MEDS: CHOLECALCIFEROL (VITAMIN D3) 1,000 UNIT TABLET PO SCH (08:34)
[2018-07-09 11:18] VITALS: BP 99/50
--- NOTE | 2018-07-09 12:20 | PDOC ---
PROGRESS NOTES Chief Complaint Chief Complaint Tib/fib ORIF POD 1 Anxiety Arthritis COPD Depression Diabetes HLD Insomnia History of Present Illness History of Present Illness Pt seen and examined Dw RN Clean dry intact dressing with alecia wraps Neurovascularly intact Vitals Vitals Vital Signs Date Time Temp Pulse Resp B/P (MAP) Pulse Ox O2 Delivery O2 Flow Rate FiO2 07/09/18 11:18 98.7 79 18 99/50 (66) 94 Nasal Cannula 2.0 98.7 Physical Exam General: Alert, Cooperative, No acute distress Heart: Regular rate, No murmurs Lungs: Wheezing Abdomen: Soft, No tenderness Extremities: No clubbing, No cyanosis, Normal pulses, Other (Clean dry intact dressing with ALECIA wraps in place. Pt can move his toes and has sensation to light touch.) Skin: No rashes, No breakdown Labs LABS Laboratory Tests Test 07/08/18 13:37 07/08/18 20:27 07/09/18 04:50 Glucose (Fingerstick) 116 mg/dL (70-99) 130 mg/dL (70-99) White Blood Count 12.6 x10^3/uL (4.0-11.0) Red Blood Count 3.15 x10^6/uL (4.30-5.70) Hemoglobin 9.6 g/dL (13.0-17.5) Hematocrit 28.9 % (39.0-53.0) Mean Corpuscular Volume 92 fL (79-100) Mean Corpuscular Hemoglobin 30 pg (25-35) Mean Corpuscular Hemoglobin Concent 33 g/dL (31-37) Red Cell Distribution Width 14.7 % (11.5-14.5) Platelet Count 175 x10^3/uL (140-400) Neutrophils (%) (Auto) 77 % (31-73) Lymphocytes (%) (Auto) 12 % (24-48) Monocytes (%) (Auto) 12 % (0-9) Eosinophils (%) (Auto) 0 % (0-3) Basophils (%) (Auto) 0 % (0-3) Neutrophils # (Auto) 9.7 x10^3uL (1.8-7.7) Lymphocytes # (Auto) 1.5 x10^3/uL (1.0-4.8) Monocytes # (Auto) 1.5 x10^3/uL (0.0-1.1) Eosinophils # (Auto) 0.0 x10^3/uL (0.0-0.7) Basophils # (Auto) 0.0 x10^3/uL (0.0-0.2) Sodium Level 138 mmol/L (136-145) Potassium Level 4.3 mmol/L (3.5-5.1) Chloride Level 105 mmol/L (98-107) Carbon Dioxide Level 26 mmol/L (21-32) Anion Gap 7 (6-14) Blood Urea Nitrogen 6 mg/dL (8-26) Creatinine 1.0 mg/dL (0.7-1.3) Estimated GFR (Cockcroft-Gault) 73.7 Glucose Level 141 mg/dL (70-99) Calcium Level 7.9 mg/dL (8.5-10.1) Review of Systems Review of Systems CO pain CO hunger Assessment and Plan Assessmemt and Plan Problems Medical Problems: (1) Fracture of distal end of tibia with fibula Status: Acute Tib/fib ORIF POD 1 Anxiety Arthritis COPD Depression Diabetes HLD Insomnia Plan: Wound care PRN narcotics PT/OT Light to bedside drain Possible D/C to [facility] Wednesday Comment Review of Relevant I have reviewed the following items quentin (where applicable) has been applied. Labs Laboratory Tests Test 07/07/18 12:40 07/07/18 20:20 07/07/18 21:50 07/08/18 06:35 Urine Collection Type Unknown Urine Color Yellow Urine Clarity Turbid Urine pH 5.5 Urine Specific Niland 1.025 Urine Protein Negative mg/dL (NEG-TRACE) Urine Glucose (UA) Negative mg/dL (NEG) Urine Ketones (Stick) Trace mg/dL (NEG) Urine Blood Negative (NEG) Urine Nitrite Negative (NEG) Urine Bilirubin Small (NEG) Urine Urobilinogen Dipstick 0.2 mg/dL (0.2 mg/dL) Urine Leukocyte Esterase Negative (NEG) Urine RBC 0 /HPF (0-2) Urine WBC 0 /HPF (0-4) Urine Amorphous Sediment Present /HPF Urine Bacteria 0 /HPF (0-FEW) White Blood Count 12.9 x10^3/uL (4.0-11.0) 9.6 x10^3/uL (4.0-11.0) Red Blood Count 4.67 x10^6/uL (4.30-5.70) 3.88 x10^6/uL (4.30-5.70) Hemoglobin 13.9 g/dL (13.0-17.5) 11.7 g/dL (13.0-17.5) Hematocrit 42.4 % (39.0-53.0) 35.3 % (39.0-53.0) Mean Corpuscular Volume 91 fL (79-100) 91 fL (79-100) Mean Corpuscular Hemoglobin 30 pg (25-35) 30 pg (25-35) Mean Corpuscular Hemoglobin Concent 33 g/dL (31-37) 33 g/dL (31-37) Red Cell Distribution Width 15.5 % (11.5-14.5) 15.2 % (11.5-14.5) Platelet Count 219 x10^3/uL (140-400) 173 x10^3/uL (140-400) Neutrophils (%) (Auto) 73 % (31-73) 64 % (31-73) Lymphocytes (%) (Auto) 19 % (24-48) 24 % (24-48) Monocytes (%) (Auto) 6 % (0-9) 11 % (0-9) Eosinophils (%) (Auto) 1 % (0-3) 1 % (0-3) Basophils (%) (Auto) 0 % (0-3) 0 % (0-3) Neutrophils # (Auto) 9.4 x10^3uL (1.8-7.7) 6.2 x10^3uL (1.8-7.7) Lymphocytes # (Auto) 2.5 x10^3/uL (1.0-4.8) 2.3 x10^3/uL (1.0-4.8) Monocytes # (Auto) 0.8 x10^3/uL (0.0-1.1) 1.0 x10^3/uL (0.0-1.1) Eosinophils # (Auto) 0.1 x10^3/uL (0.0-0.7) 0.1 x10^3/uL (0.0-0.7) Basophils # (Auto) 0.1 x10^3/uL (0.0-0.2) 0.0 x10^3/uL (0.0-0.2) Prothrombin Time 12.9 SEC (11.7-14.0) Prothromb Time International Ratio 1.0 (0.8-1.1) Sodium Level 140 mmol/L (136-145) 140 mmol/L (136-145) Potassium Level 4.5 mmol/L (3.5-5.1) 4.0 mmol/L (3.5-5.1) Chloride Level 108 mmol/L (98-107) 108 mmol/L (98-107) Carbon Dioxide Level 17 mmol/L (21-32) 24 mmol/L (21-32) Anion Gap 15 (6-14) 8 (6-14) Blood Urea Nitrogen 13 mg/dL (8-26) 11 mg/dL (8-26) Creatinine 1.2 mg/dL (0.7-1.3) 1.1 mg/dL (0.7-1.3) Estimated GFR (Cockcroft-Gault) 59.7 66.0 Glucose Level 73 mg/dL (70-99) 125 mg/dL (70-99) Calcium Level 9.3 mg/dL (8.5-10.1) 8.0 mg/dL (8.5-10.1) Lactic Acid Level 5.0 mmol/L (0.4-2.0) 1.0 mmol/L (0.4-2.0) BUN/Creatinine Ratio 10 (6-20) Total Bilirubin 0.4 mg/dL (0.2-1.0) Aspartate Amino Transf (AST/SGOT) 12 U/L (15-37) Alanine Aminotransferase (ALT/SGPT) 15 U/L (16-63) Alkaline Phosphatase 80 U/L (46-116) Total Protein 5.7 g/dL (6.4-8.2) Albumin 2.7 g/dL (3.4-5.0) Albumin/Globulin Ratio 0.9 (1.0-1.7) 25-Hydroxy Vitamin D Total 39.0 ng/mL (30-100) Test 07/08/18 13:37 07/08/18 20:27 07/09/18 04:50 Glucose (Fingerstick) 116 mg/dL (70-99) 130 mg/dL (70-99) White Blood Count 12.6 x10^3/uL (4.0-11.0) Red Blood Count 3.15 x10^6/uL (4.30-5.70) Hemoglobin 9.6 g/dL (13.0-17.5) Hematocrit 28.9 % (39.0-53.0) Mean Corpuscular Volume 92 fL (79-100) Mean Corpuscular Hemoglobin 30 pg (25-35) Mean Corpuscular Hemoglobin Concent 33 g/dL (31-37) Red Cell Distribution Width 14.7 % (11.5-14.5) Platelet Count 175 x10^3/uL (140-400) Neutrophils (%) (Auto) 77 % (31-73) Lymphocytes (%) (Auto) 12 % (24-48) Monocytes (%) (Auto) 12 % (0-9) Eosinophils (%) (Auto) 0 % (0-3) Basophils (%) (Auto) 0 % (0-3) Neutrophils # (Auto) 9.7 x10^3uL (1.8-7.7) Lymphocytes # (Auto) 1.5 x10^3/uL (1.0-4.8) Monocytes # (Auto) 1.5 x10^3/uL (0.0-1.1) Eosinophils # (Auto) 0.0 x10^3/uL (0.0-0.7) Basophils # (Auto) 0.0 x10^3/uL (0.0-0.2) Sodium Level 138 mmol/L (136-145) Potassium Level 4.3 mmol/L (3.5-5.1) Chloride Level 105 mmol/L (98-107) Carbon Dioxide Level 26 mmol/L (21-32) Anion Gap 7 (6-14) Blood Urea Nitrogen 6 mg/dL (8-26) Creatinine 1.0 mg/dL (0.7-1.3) Estimated GFR (Cockcroft-Gault) 73.7 Glucose Level 141 mg/dL (70-99) Calcium Level 7.9 mg/dL (8.5-10.1) Laboratory Tests Test 07/08/18 13:37 07/08/18 20:27 07/09/18 04:50 Glucose (Fingerstick) 116 mg/dL (70-99) 130 mg/dL (70-99) White Blood Count 12.6 x10^3/uL (4.0-11.0) Red Blood Count 3.15 x10^6/uL (4.30-5.70) Hemoglobin 9.6 g/dL (13.0-17.5) Hematocrit 28.9 % (39.0-53.0) Mean Corpuscular Volume 92 fL (79-100) Mean Corpuscular Hemoglobin 30 pg (25-35) Mean Corpuscular Hemoglobin Concent 33 g/dL (31-37) Red Cell Distribution Width 14.7 % (11.5-14.5) Platelet Count 175 x10^3/uL (140-400) Neutrophils (%) (Auto) 77 % (31-73) Lymphocytes (%) (Auto) 12 % (24-48) Monocytes (%) (Auto) 12 % (0-9) Eosinophils (%) (Auto) 0 % (0-3) Basophils (%) (Auto) 0 % (0-3) Neutrophils # (Auto) 9.7 x10^3uL (1.8-7.7) Lymphocytes # (Auto) 1.5 x10^3/uL (1.0-4.8) Monocytes # (Auto) 1.5 x10^3/uL (0.0-1.1) Eosinophils # (Auto) 0.0 x10^3/uL (0.0-0.7) Basophils # (Auto) 0.0 x10^3/uL (0.0-0.2) Sodium Level 138 mmol/L (136-145) Potassium Level 4.3 mmol/L (3.5-5.1) Chloride Level 105 mmol/L (98-107) Carbon Dioxide Level 26 mmol/L (21-32) Anion Gap 7 (6-14) Blood Urea Nitrogen 6 mg/dL (8-26) Creatinine 1.0 mg/dL (0.7-1.3) Estimated GFR (Cockcroft-Gault) 73.7 Glucose Level 141 mg/dL (70-99) Calcium Level 7.9 mg/dL (8.5-10.1) Medications Current Medications Dextrose/Lactated Ringer's 1,000 ml @ 75 mls/hr 1X ONCE IV Last administered on 07/07/18at 20:00; Start 07/07/18 at 20:00; Stop 07/08/18 at 09:19; Status DC Morphine Sulfate (Morphine Sulfate) 5 mg Q2H PRN IV pain Last administered on at 10:42; Start 07/07/18 at 20:00; Stop 07/08/18 at 18:23; Status DC Sodium Chloride 1,000 ml @ 1,000 mls/hr 1X ONCE IV Last administered on at 20:43; Start 07/07/18 at 21:00; Stop 07/07/18 at 21:59; Status DC Dextrose/Lactated Ringer's 1,000 ml @ 125 mls/hr 1X ONCE IV Last administered on 07/07/18at 21:45; Start 07/07/18 at 21:45; Stop 07/08/18 at 05:44 ; Status DC Sodium Chloride 1,000 ml @ 1,000 mls/hr Q1H IV Last administered on 07/08/18at 00:54; Start 07/07/18 at 23:00; Stop 07/08/18 at 01:19; Status DC Ceftriaxone Sodium 50 ml @ 100 mls/hr 1X ONCE IV ; Start 07/07/18 at 23:00; Stop 07/07/18 at 23:29; Status Cancel Ceftriaxone Sodium (Rocephin) 1 gm 1X ONCE IVP Last administered on 07/08/18at 01:00; Start 07/08/18 at 01:00; Stop 07/08/18 at 01:01; Status DC Ondansetron HCl (Zofran) 4 mg PRN Q6HRS PRN IV NAUSEA/VOMITING; Start 07/08/18 at 09:15; Stop 07/08/18 at 18:23; Status DC Fentanyl Citrate (Fentanyl 2ml Vial) 25 mcg PRN Q5MIN PRN IV MILD PAIN; Start 07/08/18 at 09:15; Stop 07/08/18 at 18:23; Status DC Fentanyl Citrate (Fentanyl 2ml Vial) 50 mcg PRN Q5MIN PRN IV MODERATE TO SEVERE PAIN Last administered on 07/08/18at 17:46; Start 07/08/18 at 09:15; Stop 07/08/18 at 18:23; Status DC Morphine Sulfate (Morphine Sulfate) 1 mg PRN Q10MIN PRN IV SEVERE PAIN; Start 07/08/18 at 09:15; Stop 07/08/18 at 18:23; Status DC Ringer's Solution 1,000 ml @ 30 mls/hr Q24H IV Last administered on 07/08/18at 13:24; Start 07/08/18 at 09:03; Stop 07/08/18 at 18:23; Status DC Lidocaine HCl (Xylocaine-Mpf 1% 2ml Vial) 2 ml 1X PRN PRN ID IV START; Start at 09:15; Stop 07/08/18 at 23:00; Status DC Hydromorphone HCl (Dilaudid) 0.5 mg PRN Q10MIN PRN IV SEV PAIN, Second choice; Start 07/08/18 at 09:15; Stop 07/08/18 at 18:23; Status DC Prochlorperazine Edisylate (Compazine) 5 mg PACU PRN PRN IV NAUSEA, MRX1 Last administered on 07/08/18at 17:46; Start 07/08/18 at 09:15; Stop 07/08/18 at 18:23 ; Status DC Lidocaine HCl (Lidocaine Pf 2% Vial) 5 ml STK-MED ONCE .ROUTE ; Start 07/08/18 at 12:25; Stop 07/08/18 at 12:26; Status DC Propofol 20 ml @ As Directed STK-MED ONCE IV ; Start 07/08/18 at 12:26; Stop at 12:27; Status DC Dexamethasone Sodium Phosphate (Decadron) 20 mg STK-MED ONCE .ROUTE ; Start at 12:26; Stop 07/08/18 at 12:27; Status DC Ondansetron HCl (Zofran) 4 mg STK-MED ONCE .ROUTE ; Start 07/08/18 at 12:26; Stop 07/08/18 at 12:27; Status DC Fentanyl Citrate (Fentanyl 2ml Vial) 100 mcg STK-MED ONCE .ROUTE ; Start at 12:26; Stop 07/08/18 at 12:27; Status DC Bupivacaine HCl/ Epinephrine Bitart (Marcaine-Epi 0.25%-[id number]) 50 ml STK-MED ONCE .ROUTE Last administered on 07/08/18at 16:30; Start 07/08/18 at 11:39; Stop 07/08/18 at 12:39; Status DC Rocuronium [place] (Zemuron) 50 mg STK-MED ONCE .ROUTE ; Start 07/08/18 at 12:57 ; Stop 07/08/18 at 12:58; Status DC Cefazolin Sodium/ Dextrose 50 ml @ 100 mls/hr 1X ONCE IV Last administered on 07/08/18at 14:17; Start 07/08/18 at 13:30; Stop 07/08/18 at 13:59; Status DC Fentanyl Citrate (Fentanyl 2ml Vial) 100 mcg STK-MED ONCE .ROUTE ; Start at 14:26; Stop 07/08/18 at 14:27; Status DC Rocuronium [place] (Zemuron) 50 mg STK-MED ONCE .ROUTE ; Start 07/08/18 at 14:46 ; Stop 07/08/18 at 14:47; Status DC Cefazolin Sodium/ Dextrose 50 ml @ 100 mls/hr 1X ONCE IV Last administered on 07/08/18at 16:01; Start 07/08/18 at 16:00; Stop 07/08/18 at 16:29; Status DC Glycopyrrolate (Robinul) 1 mg STK-MED ONCE .ROUTE ; Start 07/08/18 at 16:26; Stop 07/08/18 at 16:27; Status DC Neostigmine Methylsulfate (Bloxiverz) 10 mg STK-MED ONCE .ROUTE ; Start at 16:26; Stop 07/08/18 at 16:27; Status DC Sevoflurane (Ultane) 90 ml STK-MED ONCE IH ; Start 07/08/18 at 16:30; Stop 07/08 at 16:31; Status DC Oxycodone HCl (Roxicodone) 5 mg PRN Q3HRS PRN PO PAIN Last administered on at 08:47; Start 07/08/18 at 17:15 Morphine Sulfate (Morphine Sulfate) 2 mg PRN Q1HR PRN IV PAIN Last administered on 07/08/18at 17:30; Start 07/08/18 at 17:15 Fentanyl Citrate (Fentanyl 2ml Vial) 25 mcg PRN Q1HR PRN IV PAIN; Start at 17:15 Senna/Docusate Sodium (Senna Plus) 1 tab DAILY PO ; Start 07/09/18 at 09:00 Polyethylene Glycol (miraLAX PACKET) 17 gm PRN DAILY PRN PO CONSTIPATION; Start 07/08/18 at 17:15 Vitamin D (Vitamin D3) 2,000 unit DAILY PO Last administered on 07/09/18at 08:34 ; Start 07/09/18 at 09:00 Ondansetron HCl (Zofran) 4 mg PRN Q4HRS PRN IV NAUSEA/VOMITING; Start 07/08/18 at 17:15 Aspirin (Aureliano Aspirin) 325 mg DAILYWBKFT PO Last administered on 07/09/18at 08: 33; Start 07/09/18 at 08:00 Magnesium Hydroxide (Milk Of Magnesia) 2,400 mg 1X PRN PRN PO CONSTIPATION; Start 07/09/18 at 06:00; Stop 07/10/18 at 05:59 Bisacodyl (Dulcolax Supp) 10 mg 1X PRN PRN ND CONSTIPATION; Start 07/09/18 at 16 :00; Stop 07/10/18 at 15:59 Acetaminophen/ Hydrocodone Bitart (Lortab 7.5/325) 1 tab PRN Q4HRS PRN PO PAIN Last administered on 07/09/18at 06:19; Start 07/08/18 at 17:15 Morphine Sulfate (Morphine Sulfate) 4 mg PRN Q2HR PRN IV PAIN Last administered on 07/09/18at 06:20; Start 07/08/18 at 17:15 Acetaminophen/ Hydrocodone Bitart (Lortab 7.5/325) 2 tab PRN Q4HRS PRN PO PAIN ; Start 07/08/18 at 17:15 Dextrose (Dextrose 50%-Water Syringe) 12.5 gm PRN Q15MIN PRN IV SEE COMMENTS; Start 07/08/18 at 17:15 Cefazolin Sodium/ Dextrose 50 ml @ 100 mls/hr Q6H IV Last administered on at 10:06; Start 07/08/18 at 22:00; Stop 07/09/18 at 10:29; Status DC Morphine Sulfate (Morphine Sulfate) 2 mg STK-MED ONCE .ROUTE ; Start 07/08/18 at 17:17; Stop 07/08/18 at 17:18; Status DC Albuterol Sulfate (Ventolin Neb Soln) 2.5 mg 1X ONCE NEB Last administered on 07/08/18at 18:31; Start 07/08/18 at 18:30; Stop 07/08/18 at 18:31; Status DC Active Scripts Active Reported Xanax (Alprazolam) 1 Mg Tablet 1 Tab PO PRN BID Hydrocodone-Apap 7.5-325 (Hydrocodone Bit/Acetaminophen) 1 Each Tablet 1 Tab PO PRN Q6HRS PRN Proair Hfa Inhaler (Albuterol Sulfate) 8.5 Gm Hfa.aer.ad 1 Puff INH PRN Q6HRS PRN Albuterol Sulfate Neb Soln (Albuterol Sulfate) 2.5 Mg/3 Ml Vial.neb 5 Mg NEB PRN Q4HRS PRN Doxazosin Mesylate 4 Mg Tablet 4 Mg PO QODAY Lasix (Furosemide) 40 Mg Tablet 40 Mg PO DAILY Lantus Solostar (Insulin Glargine,Hum.rec.anlog) 100 Unit/1 Ml Insuln.pen 25 Unit SQ QHS Metformin Hcl 1,000 Mg Tablet 1,000 Mg PO BIDACBL Spironolactone 25 Mg Tablet 25 Mg PO DAILY Aspirin Ec (Aspirin) 81 Mg Tablet.dr 81 Mg PO DAILY Lipitor (Atorvastatin Calcium) 10 Mg Tablet 5 Mg PO HS Trazodone Hcl 50 Mg Tablet 250 Mg PO HS Zoloft (Sertraline Hcl) 25 Mg Tablet 25 Mg PO DAILY Vitals/I & O Vital Sign - Last 24 Hours 07/08/18 07/08/18 07/08/18 07/08/18 13:00 17:06 17:06 17:21 Temp 99.2 98.7 99.2 98.7 Pulse 97 131 98 Resp 20 22 20 B/P (MAP) 107/55 143/66 108/67 Pulse Ox 95 95 96 O2 Delivery Room Air Simple Mask Mask Simple Mask O2 Flow Rate 4 10 10 10 07/08/18 07/08/18 07/08/18 07/08/18 17:30 17:31 17:36 17:46 Pulse 100 Resp 20 22 20 20 B/P (MAP) 132/70 Pulse Ox 99 99 93 O2 Delivery Simple Mask Nasal Cannula Nasal Cannula O2 Flow Rate 10.0 2 2.0 8/31/18 8/31/18 8/31/18 8/31/18 17:51 18:07 18:15 18:22 Pulse 92 88 99 Resp 22 22 20 B/P (MAP) 97/78 89/53 100/55 Pulse Ox 95 91 92 O2 Delivery Nasal Cannula Nasal Cannula Nasal Cannula Nasal Cannula O2 Flow Rate 2 2 3 4 07/08/18 07/08/18 07/08/18 07/08/18 19:00 20:36 21:21 23:00 Temp 99.0 98.7 99.0 98.7 Pulse 95 85 Resp 16 20 16 B/P (MAP) 91/51 (64) 104/54 (71) Pulse Ox 97 94 O2 Delivery Room Air Nasal Cannula Nasal Cannula Room Air O2 Flow Rate 4.0 4.0 07/08/18 07/09/18 07/09/18 07/09/18 23:53 02:08 02:09 03:00 Temp 98.6 98.6 Pulse 83 Resp 20 20 20 16 B/P (MAP) 96/56 (69) Pulse Ox 91 O2 Delivery Nasal Cannula Nasal Cannula Nasal Cannula Room Air O2 Flow Rate 2.0 2.0 2.0 07/09/18 07/09/18 07/09/18 07/09/18 03:09 04:10 04:40 06:19 Resp 20 20 20 20 Pulse Ox 97 O2 Delivery Nasal Cannula Room Air O2 Flow Rate 2.0 07/09/18 07/09/18 07/09/18 07/09/18 06:20 07:00 07:10 08:17 Temp 98.7 98.7 Pulse 101 Resp 20 18 B/P (MAP) 101/44 (63) Pulse Ox 88 O2 Delivery Room Air Room Air Nasal Cannula Nasal Cannula O2 Flow Rate 2.0 2.0 07/09/18 07/09/18 07/09/18 07/09/18 08:17 08:47 10:01 11:18 Temp 98.7 98.7 Pulse 79 Resp 18 B/P (MAP) 99/50 (66) Pulse Ox 94 O2 Delivery Nasal Cannula Nasal Cannula Nasal Cannula Nasal Cannula O2 Flow Rate 2.0 2.0 2.0 2.0 Intake and Output 07/08/18 07/08/18 07/09/18 15:00 23:00 07:00 Intake Total 1000 ml 860 ml Output Total 700 ml Balance 300 ml 860 ml GIL KRAUSE III DO Jul 09, 2018 12:20
--- NOTE | 2018-07-09 13:07 | PDOC ---
PROGRESS NOTES Subjective Subjective Doing better today. Pain controlled. Sitting up in bed eating lunch. Objective Vital Signs Vital Signs Date Time Temp Pulse Resp B/P (MAP) Pulse Ox O2 Delivery O2 Flow Rate FiO2 07/09/18 11:18 98.7 79 18 99/50 (66) 94 Nasal Cannula 2.0 98.7 Physical Exam Sitting up in bed eating lunch. LLE postop dressing and splint intact. Minimal serosanguineous drainage posteriorly. Dorsiflexion and plantarflexion at toes intact with no evidence of neurovascular injury. Labs Laboratory Tests Test 07/07/18 20:20 07/07/18 21:50 07/08/18 06:35 07/08/18 13:37 White Blood Count 12.9 x10^3/uL (4.0-11.0) 9.6 x10^3/uL (4.0-11.0) Red Blood Count 4.67 x10^6/uL (4.30-5.70) 3.88 x10^6/uL (4.30-5.70) Hemoglobin 13.9 g/dL (13.0-17.5) 11.7 g/dL (13.0-17.5) Hematocrit 42.4 % (39.0-53.0) 35.3 % (39.0-53.0) Mean Corpuscular Volume 91 fL (79-100) 91 fL (79-100) Mean Corpuscular Hemoglobin 30 pg (25-35) 30 pg (25-35) Mean Corpuscular Hemoglobin Concent 33 g/dL (31-37) 33 g/dL (31-37) Red Cell Distribution Width 15.5 % (11.5-14.5) 15.2 % (11.5-14.5) Platelet Count 219 x10^3/uL (140-400) 173 x10^3/uL (140-400) Neutrophils (%) (Auto) 73 % (31-73) 64 % (31-73) Lymphocytes (%) (Auto) 19 % (24-48) 24 % (24-48) Monocytes (%) (Auto) 6 % (0-9) 11 % (0-9) Eosinophils (%) (Auto) 1 % (0-3) 1 % (0-3) Basophils (%) (Auto) 0 % (0-3) 0 % (0-3) Neutrophils # (Auto) 9.4 x10^3uL (1.8-7.7) 6.2 x10^3uL (1.8-7.7) Lymphocytes # (Auto) 2.5 x10^3/uL (1.0-4.8) 2.3 x10^3/uL (1.0-4.8) Monocytes # (Auto) 0.8 x10^3/uL (0.0-1.1) 1.0 x10^3/uL (0.0-1.1) Eosinophils # (Auto) 0.1 x10^3/uL (0.0-0.7) 0.1 x10^3/uL (0.0-0.7) Basophils # (Auto) 0.1 x10^3/uL (0.0-0.2) 0.0 x10^3/uL (0.0-0.2) Prothrombin Time 12.9 SEC (11.7-14.0) Prothromb Time International Ratio 1.0 (0.8-1.1) Sodium Level 140 mmol/L (136-145) 140 mmol/L (136-145) Potassium Level 4.5 mmol/L (3.5-5.1) 4.0 mmol/L (3.5-5.1) Chloride Level 108 mmol/L (98-107) 108 mmol/L (98-107) Carbon Dioxide Level 17 mmol/L (21-32) 24 mmol/L (21-32) Anion Gap 15 (6-14) 8 (6-14) Blood Urea Nitrogen 13 mg/dL (8-26) 11 mg/dL (8-26) Creatinine 1.2 mg/dL (0.7-1.3) 1.1 mg/dL (0.7-1.3) Estimated GFR (Cockcroft-Gault) 59.7 66.0 Glucose Level 73 mg/dL (70-99) 125 mg/dL (70-99) Calcium Level 9.3 mg/dL (8.5-10.1) 8.0 mg/dL (8.5-10.1) Lactic Acid Level 5.0 mmol/L (0.4-2.0) 1.0 mmol/L (0.4-2.0) BUN/Creatinine Ratio 10 (6-20) Total Bilirubin 0.4 mg/dL (0.2-1.0) Aspartate Amino Transf (AST/SGOT) 12 U/L (15-37) Alanine Aminotransferase (ALT/SGPT) 15 U/L (16-63) Alkaline Phosphatase 80 U/L (46-116) Total Protein 5.7 g/dL (6.4-8.2) Albumin 2.7 g/dL (3.4-5.0) Albumin/Globulin Ratio 0.9 (1.0-1.7) 25-Hydroxy Vitamin D Total 39.0 ng/mL (30-100) Glucose (Fingerstick) 116 mg/dL (70-99) Test 07/08/18 20:27 07/09/18 04:50 Glucose (Fingerstick) 130 mg/dL (70-99) White Blood Count 12.6 x10^3/uL (4.0-11.0) Red Blood Count 3.15 x10^6/uL (4.30-5.70) Hemoglobin 9.6 g/dL (13.0-17.5) Hematocrit 28.9 % (39.0-53.0) Mean Corpuscular Volume 92 fL (79-100) Mean Corpuscular Hemoglobin 30 pg (25-35) Mean Corpuscular Hemoglobin Concent 33 g/dL (31-37) Red Cell Distribution Width 14.7 % (11.5-14.5) Platelet Count 175 x10^3/uL (140-400) Neutrophils (%) (Auto) 77 % (31-73) Lymphocytes (%) (Auto) 12 % (24-48) Monocytes (%) (Auto) 12 % (0-9) Eosinophils (%) (Auto) 0 % (0-3) Basophils (%) (Auto) 0 % (0-3) Neutrophils # (Auto) 9.7 x10^3uL (1.8-7.7) Lymphocytes # (Auto) 1.5 x10^3/uL (1.0-4.8) Monocytes # (Auto) 1.5 x10^3/uL (0.0-1.1) Eosinophils # (Auto) 0.0 x10^3/uL (0.0-0.7) Basophils # (Auto) 0.0 x10^3/uL (0.0-0.2) Sodium Level 138 mmol/L (136-145) Potassium Level 4.3 mmol/L (3.5-5.1) Chloride Level 105 mmol/L (98-107) Carbon Dioxide Level 26 mmol/L (21-32) Anion Gap 7 (6-14) Blood Urea Nitrogen 6 mg/dL (8-26) Creatinine 1.0 mg/dL (0.7-1.3) Estimated GFR (Cockcroft-Gault) 73.7 Glucose Level 141 mg/dL (70-99) Calcium Level 7.9 mg/dL (8.5-10.1) Laboratory Tests Test 07/08/18 13:37 07/08/18 20:27 07/09/18 04:50 Glucose (Fingerstick) 116 mg/dL (70-99) 130 mg/dL (70-99) White Blood Count 12.6 x10^3/uL (4.0-11.0) Red Blood Count 3.15 x10^6/uL (4.30-5.70) Hemoglobin 9.6 g/dL (13.0-17.5) Hematocrit 28.9 % (39.0-53.0) Mean Corpuscular Volume 92 fL (79-100) Mean Corpuscular Hemoglobin 30 pg (25-35) Mean Corpuscular Hemoglobin Concent 33 g/dL (31-37) Red Cell Distribution Width 14.7 % (11.5-14.5) Platelet Count 175 x10^3/uL (140-400) Neutrophils (%) (Auto) 77 % (31-73) Lymphocytes (%) (Auto) 12 % (24-48) Monocytes (%) (Auto) 12 % (0-9) Eosinophils (%) (Auto) 0 % (0-3) Basophils (%) (Auto) 0 % (0-3) Neutrophils # (Auto) 9.7 x10^3uL (1.8-7.7) Lymphocytes # (Auto) 1.5 x10^3/uL (1.0-4.8) Monocytes # (Auto) 1.5 x10^3/uL (0.0-1.1) Eosinophils # (Auto) 0.0 x10^3/uL (0.0-0.7) Basophils # (Auto) 0.0 x10^3/uL (0.0-0.2) Sodium Level 138 mmol/L (136-145) Potassium Level 4.3 mmol/L (3.5-5.1) Chloride Level 105 mmol/L (98-107) Carbon Dioxide Level 26 mmol/L (21-32) Anion Gap 7 (6-14) Blood Urea Nitrogen 6 mg/dL (8-26) Creatinine 1.0 mg/dL (0.7-1.3) Estimated GFR (Cockcroft-Gault) 73.7 Glucose Level 141 mg/dL (70-99) Calcium Level 7.9 mg/dL (8.5-10.1) Assessment Assessment POD #1 left tibia IM nail, distal fibula ORIF Plan Plan of Care Continue POC including DVT ppx and therapy. NWB on the LLE. He would like for someone to trim his toenails. SIMONE YI Jul 09, 2018 13:07
[2018-07-09] MEDS ORDERED: NON FORMULARY ITEM (Albuterol Sulfate (Proair Hfa Inhaler) 1 PUFF) INH PRN (14:30)
[2018-07-09] MEDS ORDERED: HYDROcodone/APAP 7.5/325MG 1 TAB TABLET PO PRN (14:30)
[2018-07-09 15:00] VITALS: BP 91/47
[2018-07-09] MEDS ORDERED: BISACODYL 10 MG SUPP.RECT. PR PRN (16:00)
[2018-07-09 17:02] LABS: HEMATOCRIT 28.2 % (39.0-53.0); HEMOGLOBIN 9.4 g/dL (13.0-17.5)
[2018-07-09 19:00] VITALS: BP 114/58
[2018-07-09] MEDS: ATORVASTATIN CALCIUM 10 MG TABLET. PO SCH (20:55)
[2018-07-09] MEDS: traZODone 50 MG TABLET. PO SCH (20:56)
[2018-07-09] MEDS: ALPRAZolam 1 MG TABLET PO PRN (20:56)
[2018-07-09] MEDS: INSULIN GLARGINE 300 UNITS/3 ML INSULN.PEN. SQ SCH (21:04)
[2018-07-09 23:00] VITALS: BP 111/58
[2018-07-10] MEDS: HYDROcodone/APAP 7.5/325MG 1 TAB TABLET PO PRN ×5 (02:03→23:48)
[2018-07-10 03:00] VITALS: BP 104/54
[2018-07-10 05:12] LABS: BASO % 0 % (0-3); EOS # 0.1 x10^3/uL (0.0-0.7); EOS % 1 % (0-3); HEMATOCRIT 24.9 % (39.0-53.0); HEMOGLOBIN 8.5 g/dL (13.0-17.5); LYMPH % 24 % (24-48); MEAN CORPUSCULAR HEMOGLOBIN 31 pg (25-35); MEAN CORPUSCULAR HGB CONC 34 g/dL (31-37); MEAN CORPUSCULAR VOLUME 91 fL (79-100); MONO # 1.2 x10^3/uL (0.0-1.1); MONO % 14 % (0-9); NEUT # 5.2 x10^3uL (1.8-7.7); NEUT % 62 % (31-73); PLATELET COUNT 148 x10^3/uL (140-400); RED BLOOD COUNT 2.74 x10^6/uL (4.30-5.70); RED CELL DISTRIBUTION WIDTH 14.9 % (11.5-14.5); WHITE BLOOD COUNT 8.4 x10^3/uL (4.0-11.0)
[2018-07-10 05:15] LABS: GFR 73.7; POTASSIUM 3.5 mmol/L (3.5-5.1)
[2018-07-10 07:00] VITALS: BP 118/58
[2018-07-10] MEDS: SENNOSIDES/DOCUSATE 8.6/50MG TABLET. PO SCH ×2 (08:25→08:29)
[2018-07-10] MEDS: CHOLECALCIFEROL (VITAMIN D3) 1,000 UNIT TABLET PO SCH (08:26)
[2018-07-10] MEDS: SERTRALINE 25 MG TABLET. PO SCH (08:26)
[2018-07-10] MEDS: FUROSEMIDE 40 MG TABLET. PO SCH (08:26)
[2018-07-10] MEDS: ASPIRIN 325 MG TABLET PO SCH (08:26)
[2018-07-10] MEDS: SPIRONOLACTONE 25 MG TABLET PO SCH (08:27)
[2018-07-10 11:00] VITALS: BP 118/58
[2018-07-10] MEDS: ALPRAZolam 1 MG TABLET PO PRN ×2 (12:07→20:18)
--- NOTE | 2018-07-10 12:57 | PDOC ---
PROGRESS NOTES Subjective Subjective Pt states pain is controlled. No complaints. Objective Vital Signs Vital Signs Date Time Temp Pulse Resp B/P (MAP) Pulse Ox O2 Delivery O2 Flow Rate FiO2 07/10/18 11:00 98.2 102 118/58 (78) 96 Nasal Cannula 2.0 98.2 07/10/18 09:30 17 Physical Exam Sitting in recliner. Postop splint and dressing intact. Calf soft and nontender. Good dorsiflexion and plantarflexion at toes. Light touch sensation intact. Labs Laboratory Tests Test 07/08/18 13:37 07/08/18 20:27 07/09/18 04:50 07/09/18 07:55 Glucose (Fingerstick) 116 mg/dL (70-99) 130 mg/dL (70-99) 127 mg/dL (70-99) White Blood Count 12.6 x10^3/uL (4.0-11.0) Red Blood Count 3.15 x10^6/uL (4.30-5.70) Hemoglobin 9.6 g/dL (13.0-17.5) Hematocrit 28.9 % (39.0-53.0) Mean Corpuscular Volume 92 fL (79-100) Mean Corpuscular Hemoglobin 30 pg (25-35) Mean Corpuscular Hemoglobin Concent 33 g/dL (31-37) Red Cell Distribution Width 14.7 % (11.5-14.5) Platelet Count 175 x10^3/uL (140-400) Neutrophils (%) (Auto) 77 % (31-73) Lymphocytes (%) (Auto) 12 % (24-48) Monocytes (%) (Auto) 12 % (0-9) Eosinophils (%) (Auto) 0 % (0-3) Basophils (%) (Auto) 0 % (0-3) Neutrophils # (Auto) 9.7 x10^3uL (1.8-7.7) Lymphocytes # (Auto) 1.5 x10^3/uL (1.0-4.8) Monocytes # (Auto) 1.5 x10^3/uL (0.0-1.1) Eosinophils # (Auto) 0.0 x10^3/uL (0.0-0.7) Basophils # (Auto) 0.0 x10^3/uL (0.0-0.2) Sodium Level 138 mmol/L (136-145) Potassium Level 4.3 mmol/L (3.5-5.1) Chloride Level 105 mmol/L (98-107) Carbon Dioxide Level 26 mmol/L (21-32) Anion Gap 7 (6-14) Blood Urea Nitrogen 6 mg/dL (8-26) Creatinine 1.0 mg/dL (0.7-1.3) Estimated GFR (Cockcroft-Gault) 73.7 Glucose Level 141 mg/dL (70-99) Calcium Level 7.9 mg/dL (8.5-10.1) Test 07/09/18 12:09 07/09/18 16:42 07/09/18 17:00 07/09/18 21:00 Glucose (Fingerstick) 130 mg/dL (70-99) 141 mg/dL (70-99) 123 mg/dL (70-99) Hemoglobin 9.4 g/dL (13.0-17.5) Hematocrit 28.2 % (39.0-53.0) Mean Corpuscular Hemoglobin Concent 33 g/dL (31-37) Test 07/10/18 03:45 07/10/18 11:15 White Blood Count 8.4 x10^3/uL (4.0-11.0) Red Blood Count 2.74 x10^6/uL (4.30-5.70) Hemoglobin 8.5 g/dL (13.0-17.5) Hematocrit 24.9 % (39.0-53.0) Mean Corpuscular Volume 91 fL (79-100) Mean Corpuscular Hemoglobin 31 pg (25-35) Mean Corpuscular Hemoglobin Concent 34 g/dL (31-37) Red Cell Distribution Width 14.9 % (11.5-14.5) Platelet Count 148 x10^3/uL (140-400) Neutrophils (%) (Auto) 62 % (31-73) Lymphocytes (%) (Auto) 24 % (24-48) Monocytes (%) (Auto) 14 % (0-9) Eosinophils (%) (Auto) 1 % (0-3) Basophils (%) (Auto) 0 % (0-3) Neutrophils # (Auto) 5.2 x10^3uL (1.8-7.7) Lymphocytes # (Auto) 2.0 x10^3/uL (1.0-4.8) Monocytes # (Auto) 1.2 x10^3/uL (0.0-1.1) Eosinophils # (Auto) 0.1 x10^3/uL (0.0-0.7) Basophils # (Auto) 0.0 x10^3/uL (0.0-0.2) Sodium Level 139 mmol/L (136-145) Potassium Level 3.5 mmol/L (3.5-5.1) Chloride Level 104 mmol/L (98-107) Carbon Dioxide Level 27 mmol/L (21-32) Anion Gap 8 (6-14) Blood Urea Nitrogen 5 mg/dL (8-26) Creatinine 1.0 mg/dL (0.7-1.3) Estimated GFR (Cockcroft-Gault) 73.7 Glucose Level 94 mg/dL (70-99) Calcium Level 8.0 mg/dL (8.5-10.1) Glucose (Fingerstick) 85 mg/dL (70-99) Laboratory Tests Test 07/09/18 16:42 07/09/18 17:00 07/09/18 21:00 07/10/18 03:45 Glucose (Fingerstick) 141 mg/dL (70-99) 123 mg/dL (70-99) Hemoglobin 9.4 g/dL (13.0-17.5) 8.5 g/dL (13.0-17.5) Hematocrit 28.2 % (39.0-53.0) 24.9 % (39.0-53.0) Mean Corpuscular Hemoglobin Concent 33 g/dL (31-37) 34 g/dL (31-37) White Blood Count 8.4 x10^3/uL (4.0-11.0) Red Blood Count 2.74 x10^6/uL (4.30-5.70) Mean Corpuscular Volume 91 fL (79-100) Mean Corpuscular Hemoglobin 31 pg (25-35) Red Cell Distribution Width 14.9 % (11.5-14.5) Platelet Count 148 x10^3/uL (140-400) Neutrophils (%) (Auto) 62 % (31-73) Lymphocytes (%) (Auto) 24 % (24-48) Monocytes (%) (Auto) 14 % (0-9) Eosinophils (%) (Auto) 1 % (0-3) Basophils (%) (Auto) 0 % (0-3) Neutrophils # (Auto) 5.2 x10^3uL (1.8-7.7) Lymphocytes # (Auto) 2.0 x10^3/uL (1.0-4.8) Monocytes # (Auto) 1.2 x10^3/uL (0.0-1.1) Eosinophils # (Auto) 0.1 x10^3/uL (0.0-0.7) Basophils # (Auto) 0.0 x10^3/uL (0.0-0.2) Sodium Level 139 mmol/L (136-145) Potassium Level 3.5 mmol/L (3.5-5.1) Chloride Level 104 mmol/L (98-107) Carbon Dioxide Level 27 mmol/L (21-32) Anion Gap 8 (6-14) Blood Urea Nitrogen 5 mg/dL (8-26) Creatinine 1.0 mg/dL (0.7-1.3) Estimated GFR (Cockcroft-Gault) 73.7 Glucose Level 94 mg/dL (70-99) Calcium Level 8.0 mg/dL (8.5-10.1) Test 07/10/18 11:15 Glucose (Fingerstick) 85 mg/dL (70-99) Assessment Assessment POD #2 left tibia IM nail and distal fibula ORIF Plan Plan of Care Continue POC including DVT ppx and therapy. NWB on LL. Will plan to change dressing tomorrow or Wednesday. SIMONE YI Jul 10, 2018 12:57
[2018-07-10 15:00] VITALS: BP 118/58
--- NOTE | 2018-07-10 15:11 | PDOC ---
PROGRESS NOTES Chief Complaint Chief Complaint CC: POD #2 Tib/fib ORIF Anxiety Arthritis COPD Depression Diabetes HLD Insomnia History of Present Illness History of Present Illness Pt. seen and examined Pt. alert and oriented VSS DW nursing Bandage clean, dry and intact w/ alecia wraps Neurovascularly intact Vitals Vitals Vital Signs Date Time Temp Pulse Resp B/P (MAP) Pulse Ox O2 Delivery O2 Flow Rate FiO2 07/10/18 14:21 17 96 Nasal Cannula 2.0 07/10/18 11:00 98.2 102 118/58 (78) 98.2 Physical Exam General: Alert, Oriented X3, Cooperative, No acute distress Heart: Regular rate, Normal S1, Normal S2, No murmurs Lungs: Wheezing Abdomen: Soft, No tenderness Extremities: No clubbing, No cyanosis, Normal pulses, Other (Clean dry intact dressing with ALECIA wraps in place. Pt can move his toes and has sensation to light touch.) Skin: No rashes, No breakdown Labs LABS Laboratory Tests Test 07/09/18 16:42 07/09/18 17:00 07/09/18 21:00 07/10/18 03:45 Glucose (Fingerstick) 141 mg/dL (70-99) 123 mg/dL (70-99) Hemoglobin 9.4 g/dL (13.0-17.5) 8.5 g/dL (13.0-17.5) Hematocrit 28.2 % (39.0-53.0) 24.9 % (39.0-53.0) Mean Corpuscular Hemoglobin Concent 33 g/dL (31-37) 34 g/dL (31-37) White Blood Count 8.4 x10^3/uL (4.0-11.0) Red Blood Count 2.74 x10^6/uL (4.30-5.70) Mean Corpuscular Volume 91 fL (79-100) Mean Corpuscular Hemoglobin 31 pg (25-35) Red Cell Distribution Width 14.9 % (11.5-14.5) Platelet Count 148 x10^3/uL (140-400) Neutrophils (%) (Auto) 62 % (31-73) Lymphocytes (%) (Auto) 24 % (24-48) Monocytes (%) (Auto) 14 % (0-9) Eosinophils (%) (Auto) 1 % (0-3) Basophils (%) (Auto) 0 % (0-3) Neutrophils # (Auto) 5.2 x10^3uL (1.8-7.7) Lymphocytes # (Auto) 2.0 x10^3/uL (1.0-4.8) Monocytes # (Auto) 1.2 x10^3/uL (0.0-1.1) Eosinophils # (Auto) 0.1 x10^3/uL (0.0-0.7) Basophils # (Auto) 0.0 x10^3/uL (0.0-0.2) Sodium Level 139 mmol/L (136-145) Potassium Level 3.5 mmol/L (3.5-5.1) Chloride Level 104 mmol/L (98-107) Carbon Dioxide Level 27 mmol/L (21-32) Anion Gap 8 (6-14) Blood Urea Nitrogen 5 mg/dL (8-26) Creatinine 1.0 mg/dL (0.7-1.3) Estimated GFR (Cockcroft-Gault) 73.7 Glucose Level 94 mg/dL (70-99) Calcium Level 8.0 mg/dL (8.5-10.1) Test 07/10/18 11:15 Glucose (Fingerstick) 85 mg/dL (70-99) Review of Systems Review of Systems Pt. denies pain to LE Pt. denies weakness Assessment and Plan Assessmemt and Plan CC: (1) POD #2 Tib/fib ORIF (2) Fracture of distal end of tibia with fibula Assessment: POD #2 Tib/fib ORIF Anxiety Arthritis COPD Depression Diabetes HLD Insomnia Plan: Wound care Narcotics prn Monitor labs PT/OT Continue home meds Fu w/ surgery Probable discharge to SNU by Wednesday Comment Review of Relevant I have reviewed the following items quentin (where applicable) has been applied. Labs Laboratory Tests Test 07/08/18 20:27 07/09/18 04:50 07/09/18 07:55 07/09/18 12:09 Glucose (Fingerstick) 130 mg/dL (70-99) 127 mg/dL (70-99) 130 mg/dL (70-99) White Blood Count 12.6 x10^3/uL (4.0-11.0) Red Blood Count 3.15 x10^6/uL (4.30-5.70) Hemoglobin 9.6 g/dL (13.0-17.5) Hematocrit 28.9 % (39.0-53.0) Mean Corpuscular Volume 92 fL (79-100) Mean Corpuscular Hemoglobin 30 pg (25-35) Mean Corpuscular Hemoglobin Concent 33 g/dL (31-37) Red Cell Distribution Width 14.7 % (11.5-14.5) Platelet Count 175 x10^3/uL (140-400) Neutrophils (%) (Auto) 77 % (31-73) Lymphocytes (%) (Auto) 12 % (24-48) Monocytes (%) (Auto) 12 % (0-9) Eosinophils (%) (Auto) 0 % (0-3) Basophils (%) (Auto) 0 % (0-3) Neutrophils # (Auto) 9.7 x10^3uL (1.8-7.7) Lymphocytes # (Auto) 1.5 x10^3/uL (1.0-4.8) Monocytes # (Auto) 1.5 x10^3/uL (0.0-1.1) Eosinophils # (Auto) 0.0 x10^3/uL (0.0-0.7) Basophils # (Auto) 0.0 x10^3/uL (0.0-0.2) Sodium Level 138 mmol/L (136-145) Potassium Level 4.3 mmol/L (3.5-5.1) Chloride Level 105 mmol/L (98-107) Carbon Dioxide Level 26 mmol/L (21-32) Anion Gap 7 (6-14) Blood Urea Nitrogen 6 mg/dL (8-26) Creatinine 1.0 mg/dL (0.7-1.3) Estimated GFR (Cockcroft-Gault) 73.7 Glucose Level 141 mg/dL (70-99) Calcium Level 7.9 mg/dL (8.5-10.1) Test 07/09/18 16:42 07/09/18 17:00 07/09/18 21:00 07/10/18 03:45 Glucose (Fingerstick) 141 mg/dL (70-99) 123 mg/dL (70-99) Hemoglobin 9.4 g/dL (13.0-17.5) 8.5 g/dL (13.0-17.5) Hematocrit 28.2 % (39.0-53.0) 24.9 % (39.0-53.0) Mean Corpuscular Hemoglobin Concent 33 g/dL (31-37) 34 g/dL (31-37) White Blood Count 8.4 x10^3/uL (4.0-11.0) Red Blood Count 2.74 x10^6/uL (4.30-5.70) Mean Corpuscular Volume 91 fL (79-100) Mean Corpuscular Hemoglobin 31 pg (25-35) Red Cell Distribution Width 14.9 % (11.5-14.5) Platelet Count 148 x10^3/uL (140-400) Neutrophils (%) (Auto) 62 % (31-73) Lymphocytes (%) (Auto) 24 % (24-48) Monocytes (%) (Auto) 14 % (0-9) Eosinophils (%) (Auto) 1 % (0-3) Basophils (%) (Auto) 0 % (0-3) Neutrophils # (Auto) 5.2 x10^3uL (1.8-7.7) Lymphocytes # (Auto) 2.0 x10^3/uL (1.0-4.8) Monocytes # (Auto) 1.2 x10^3/uL (0.0-1.1) Eosinophils # (Auto) 0.1 x10^3/uL (0.0-0.7) Basophils # (Auto) 0.0 x10^3/uL (0.0-0.2) Sodium Level 139 mmol/L (136-145) Potassium Level 3.5 mmol/L (3.5-5.1) Chloride Level 104 mmol/L (98-107) Carbon Dioxide Level 27 mmol/L (21-32) Anion Gap 8 (6-14) Blood Urea Nitrogen 5 mg/dL (8-26) Creatinine 1.0 mg/dL (0.7-1.3) Estimated GFR (Cockcroft-Gault) 73.7 Glucose Level 94 mg/dL (70-99) Calcium Level 8.0 mg/dL (8.5-10.1) Test 07/10/18 11:15 Glucose (Fingerstick) 85 mg/dL (70-99) Laboratory Tests Test 07/09/18 16:42 07/09/18 17:00 07/09/18 21:00 07/10/18 03:45 Glucose (Fingerstick) 141 mg/dL (70-99) 123 mg/dL (70-99) Hemoglobin 9.4 g/dL (13.0-17.5) 8.5 g/dL (13.0-17.5) Hematocrit 28.2 % (39.0-53.0) 24.9 % (39.0-53.0) Mean Corpuscular Hemoglobin Concent 33 g/dL (31-37) 34 g/dL (31-37) White Blood Count 8.4 x10^3/uL (4.0-11.0) Red Blood Count 2.74 x10^6/uL (4.30-5.70) Mean Corpuscular Volume 91 fL (79-100) Mean Corpuscular Hemoglobin 31 pg (25-35) Red Cell Distribution Width 14.9 % (11.5-14.5) Platelet Count 148 x10^3/uL (140-400) Neutrophils (%) (Auto) 62 % (31-73) Lymphocytes (%) (Auto) 24 % (24-48) Monocytes (%) (Auto) 14 % (0-9) Eosinophils (%) (Auto) 1 % (0-3) Basophils (%) (Auto) 0 % (0-3) Neutrophils # (Auto) 5.2 x10^3uL (1.8-7.7) Lymphocytes # (Auto) 2.0 x10^3/uL (1.0-4.8) Monocytes # (Auto) 1.2 x10^3/uL (0.0-1.1) Eosinophils # (Auto) 0.1 x10^3/uL (0.0-0.7) Basophils # (Auto) 0.0 x10^3/uL (0.0-0.2) Sodium Level 139 mmol/L (136-145) Potassium Level 3.5 mmol/L (3.5-5.1) Chloride Level 104 mmol/L (98-107) Carbon Dioxide Level 27 mmol/L (21-32) Anion Gap 8 (6-14) Blood Urea Nitrogen 5 mg/dL (8-26) Creatinine 1.0 mg/dL (0.7-1.3) Estimated GFR (Cockcroft-Gault) 73.7 Glucose Level 94 mg/dL (70-99) Calcium Level 8.0 mg/dL (8.5-10.1) Test 07/10/18 11:15 Glucose (Fingerstick) 85 mg/dL (70-99) Medications Current Medications Dextrose/Lactated Ringer's 1,000 ml @ 75 mls/hr 1X ONCE IV Last administered on 07/07/18at 20:00; Start 07/07/18 at 20:00; Stop 07/08/18 at 09:19; Status DC Morphine Sulfate (Morphine Sulfate) 5 mg Q2H PRN IV pain Last administered on at 10:42; Start 07/07/18 at 20:00; Stop 07/08/18 at 18:23; Status DC Sodium Chloride 1,000 ml @ 1,000 mls/hr 1X ONCE IV Last administered on at 20:43; Start 07/07/18 at 21:00; Stop 07/07/18 at 21:59; Status DC Dextrose/Lactated Ringer's 1,000 ml @ 125 mls/hr 1X ONCE IV Last administered on 07/07/18at 21:45; Start 07/07/18 at 21:45; Stop 07/08/18 at 05:44 ; Status DC Sodium Chloride 1,000 ml @ 1,000 mls/hr Q1H IV Last administered on 07/08/18at 00:54; Start 07/07/18 at 23:00; Stop 07/08/18 at 01:19; Status DC Ceftriaxone Sodium 50 ml @ 100 mls/hr 1X ONCE IV ; Start 07/07/18 at 23:00; Stop 07/07/18 at 23:29; Status Cancel Ceftriaxone Sodium (Rocephin) 1 gm 1X ONCE IVP Last administered on 07/08/18at 01:00; Start 07/08/18 at 01:00; Stop 07/08/18 at 01:01; Status DC Ondansetron HCl (Zofran) 4 mg PRN Q6HRS PRN IV NAUSEA/VOMITING; Start 07/08/18 at 09:15; Stop 07/08/18 at 18:23; Status DC Fentanyl Citrate (Fentanyl 2ml Vial) 25 mcg PRN Q5MIN PRN IV MILD PAIN; Start 07/08/18 at 09:15; Stop 07/08/18 at 18:23; Status DC Fentanyl Citrate (Fentanyl 2ml Vial) 50 mcg PRN Q5MIN PRN IV MODERATE TO SEVERE PAIN Last administered on 07/08/18at 17:46; Start 07/08/18 at 09:15; Stop 07/08/18 at 18:23; Status DC Morphine Sulfate (Morphine Sulfate) 1 mg PRN Q10MIN PRN IV SEVERE PAIN; Start 07/08/18 at 09:15; Stop 07/08/18 at 18:23; Status DC Ringer's Solution 1,000 ml @ 30 mls/hr Q24H IV Last administered on 07/08/18at 13:24; Start 07/08/18 at 09:03; Stop 07/08/18 at 18:23; Status DC Lidocaine HCl (Xylocaine-Mpf 1% 2ml Vial) 2 ml 1X PRN PRN ID IV START; Start at 09:15; Stop 07/08/18 at 23:00; Status DC Hydromorphone HCl (Dilaudid) 0.5 mg PRN Q10MIN PRN IV SEV PAIN, Second choice; Start 07/08/18 at 09:15; Stop 07/08/18 at 18:23; Status DC Prochlorperazine Edisylate (Compazine) 5 mg PACU PRN PRN IV NAUSEA, MRX1 Last administered on 07/08/18at 17:46; Start 07/08/18 at 09:15; Stop 07/08/18 at 18:23 ; Status DC Lidocaine HCl (Lidocaine Pf 2% Vial) 5 ml STK-MED ONCE .ROUTE ; Start 07/08/18 at 12:25; Stop 07/08/18 at 12:26; Status DC Propofol 20 ml @ As Directed STK-MED ONCE IV ; Start 07/08/18 at 12:26; Stop at 12:27; Status DC Dexamethasone Sodium Phosphate (Decadron) 20 mg STK-MED ONCE .ROUTE ; Start at 12:26; Stop 07/08/18 at 12:27; Status DC Ondansetron HCl (Zofran) 4 mg STK-MED ONCE .ROUTE ; Start 07/08/18 at 12:26; Stop 07/08/18 at 12:27; Status DC Fentanyl Citrate (Fentanyl 2ml Vial) 100 mcg STK-MED ONCE .ROUTE ; Start at 12:26; Stop 07/08/18 at 12:27; Status DC Bupivacaine HCl/ Epinephrine Bitart (Marcaine-Epi 0.25%-1:424325) 50 ml STK-MED ONCE .ROUTE Last administered on 07/08/18at 16:30; Start 07/08/18 at 11:39; Stop 07/08/18 at 12:39; Status DC Rocuronium Ridgely (Zemuron) 50 mg STK-MED ONCE .ROUTE ; Start 07/08/18 at 12:57 ; Stop 07/08/18 at 12:58; Status DC Cefazolin Sodium/ Dextrose 50 ml @ 100 mls/hr 1X ONCE IV Last administered on 07/08/18at 14:17; Start 07/08/18 at 13:30; Stop 07/08/18 at 13:59; Status DC Fentanyl Citrate (Fentanyl 2ml Vial) 100 mcg STK-MED ONCE .ROUTE ; Start at 14:26; Stop 07/08/18 at 14:27; Status DC Rocuronium Ridgely (Zemuron) 50 mg STK-MED ONCE .ROUTE ; Start 07/08/18 at 14:46 ; Stop 07/08/18 at 14:47; Status DC Cefazolin Sodium/ Dextrose 50 ml @ 100 mls/hr 1X ONCE IV Last administered on 07/08/18at 16:01; Start 07/08/18 at 16:00; Stop 07/08/18 at 16:29; Status DC Glycopyrrolate (Robinul) 1 mg STK-MED ONCE .ROUTE ; Start 07/08/18 at 16:26; Stop 07/08/18 at 16:27; Status DC Neostigmine Methylsulfate (Bloxiverz) 10 mg STK-MED ONCE .ROUTE ; Start at 16:26; Stop 07/08/18 at 16:27; Status DC Sevoflurane (Ultane) 90 ml STK-MED ONCE IH ; Start 07/08/18 at 16:30; Stop 07/08 at 16:31; Status DC Oxycodone HCl (Roxicodone) 5 mg PRN Q3HRS PRN PO PAIN Last administered on at 08:47; Start 07/08/18 at 17:15 Morphine Sulfate (Morphine Sulfate) 2 mg PRN Q1HR PRN IV PAIN Last administered on 07/08/18at 17:30; Start 07/08/18 at 17:15 Fentanyl Citrate (Fentanyl 2ml Vial) 25 mcg PRN Q1HR PRN IV PAIN; Start at 17:15 Senna/Docusate Sodium (Senna Plus) 1 tab DAILY PO ; Start 07/09/18 at 09:00 Polyethylene Glycol (miraLAX PACKET) 17 gm PRN DAILY PRN PO CONSTIPATION; Start 07/08/18 at 17:15 Vitamin D (Vitamin D3) 2,000 unit DAILY PO Last administered on 07/10/18at 08:26 ; Start 07/09/18 at 09:00 Ondansetron HCl (Zofran) 4 mg PRN Q4HRS PRN IV NAUSEA/VOMITING Last administered on 07/09/18at 13:37; Start 07/08/18 at 17:15 Aspirin (Aureliano Aspirin) 325 mg DAILYWBKFT PO Last administered on 07/10/18at 08: 26; Start 07/09/18 at 08:00 Magnesium Hydroxide (Milk Of Magnesia) 2,400 mg 1X PRN PRN PO CONSTIPATION; Start 07/09/18 at 06:00; Stop 07/10/18 at 05:59; Status DC Bisacodyl (Dulcolax Supp) 10 mg 1X PRN PRN AL CONSTIPATION; Start 07/09/18 at 16 :00; Stop 07/10/18 at 15:59 Acetaminophen/ Hydrocodone Bitart (Lortab 7.5/325) 1 tab PRN Q4HRS PRN PO PAIN Last administered on 07/09/18at 06:19; Start 07/08/18 at 17:15 Morphine Sulfate (Morphine Sulfate) 4 mg PRN Q2HR PRN IV PAIN Last administered on 07/09/18at 13:35; Start 07/08/18 at 17:15 Acetaminophen/ Hydrocodone Bitart (Lortab 7.5/325) 2 tab PRN Q4HRS PRN PO PAIN Last administered on 07/10/18at 13:21; Start 07/08/18 at 17:15 Dextrose (Dextrose 50%-Water Syringe) 12.5 gm PRN Q15MIN PRN IV SEE COMMENTS; Start 07/08/18 at 17:15 Cefazolin Sodium/ Dextrose 50 ml @ 100 mls/hr Q6H IV Last administered on at 10:06; Start 07/08/18 at 22:00; Stop 07/09/18 at 10:29; Status DC Morphine Sulfate (Morphine Sulfate) 2 mg STK-MED ONCE .ROUTE ; Start 07/08/18 at 17:17; Stop 07/08/18 at 17:18; Status DC Albuterol Sulfate (Ventolin Neb Soln) 2.5 mg 1X ONCE NEB Last administered on 07/08/18at 18:31; Start 07/08/18 at 18:30; Stop 07/08/18 at 18:31; Status DC Albuterol Sulfate (Ventolin Neb Soln) 5 mg PRN Q4HRS PRN NEB SHORTNESS OF BREATH; Start 07/09/18 at 14:30 Alprazolam (Xanax) 1 mg PRN BID PRN PO ANXIETY / AGITATION Last administered on 07/10/18at 12:07; Start 07/09/18 at 14:30 Atorvastatin Calcium (Lipitor) 5 mg HS PO Last administered on 07/09/18at 20:55; Start 07/09/18 at 21:00 Doxazosin Mesylate (Cardura) 4 mg QODAY PO ; Start 07/11/18 at 09:00 Furosemide (Lasix) 40 mg DAILY PO Last administered on 07/10/18at 08:26; Start at 09:00 Acetaminophen/ Hydrocodone Bitart (Lortab 7.5/325) 1 tab PRN Q6HRS PRN PO MODERATE PAIN; Start 07/09/18 at 14:30 Insulin Glargine (Lantus) 25 units QHS SQ Last administered on 07/09/18at 21:04; Start 07/09/18 at 21:00 Trazodone HCl (Desyrel) 250 mg HS PO Last administered on 07/09/18at 20:56; Start 07/09/18 at 21:00 Non-Formulary Medication (Albuterol Sulfate (Proair Hfa Inhaler)) 1 puff PRN Q6HRS PRN INH SHORTNESS OF BREATH; Start 07/09/18 at 14:30; Status UNV Metformin HCl (Glucophage) 1,000 mg BIDWMEALS PO Last administered on 07/10/18at 08:26; Start 07/09/18 at 17:00 Sertraline HCl (Zoloft) 25 mg DAILY PO Last administered on 07/10/18at 08:26; Start 07/10/18 at 09:00 Spironolactone (Aldactone) 25 mg DAILY PO Last administered on 07/10/18at 08:27; Start 07/10/18 at 09:00 Active Scripts Active Reported Xanax (Alprazolam) 1 Mg Tablet 1 Tab PO PRN BID Hydrocodone-Apap 7.5-325 (Hydrocodone Bit/Acetaminophen) 1 Each Tablet 1 Tab PO PRN Q6HRS PRN Proair Hfa Inhaler (Albuterol Sulfate) 8.5 Gm Hfa.aer.ad 1 Puff INH PRN Q6HRS PRN Albuterol Sulfate Neb Soln (Albuterol Sulfate) 2.5 Mg/3 Ml Vial.neb 5 Mg NEB PRN Q4HRS PRN Doxazosin Mesylate 4 Mg Tablet 4 Mg PO QODAY Lasix (Furosemide) 40 Mg Tablet 40 Mg PO DAILY Lantus Solostar (Insulin Glargine,Hum.rec.anlog) 100 Unit/1 Ml Insuln.pen 25 Unit SQ QHS Metformin Hcl 1,000 Mg Tablet 1,000 Mg PO BIDACBL Spironolactone 25 Mg Tablet 25 Mg PO DAILY Aspirin Ec (Aspirin) 81 Mg Tablet.dr 81 Mg PO DAILY Lipitor (Atorvastatin Calcium) 10 Mg Tablet 5 Mg PO HS Trazodone Hcl 50 Mg Tablet 250 Mg PO HS Zoloft (Sertraline Hcl) 25 Mg Tablet 25 Mg PO DAILY Vitals/I & O Vital Sign - Last 24 Hours 07/09/18 07/09/18 07/09/18 07/09/18 15:30 15:40 19:00 20:00 Temp 98.1 98.1 Pulse 81 Resp 18 B/P (MAP) 114/58 (76) Pulse Ox 98 95 O2 Delivery Room Air Nasal Cannula Nasal Cannula Nasal Cannula O2 Flow Rate 2.0 2.0 2.0 07/09/18 07/09/18 07/10/18 07/10/18 20:56 23:00 03:00 07:00 Temp 98.2 99.2 98.2 98.2 99.2 98.2 Pulse 97 89 102 Resp 20 18 B/P (MAP) 111/58 (75) 104/54 (71) 118/58 (78) Pulse Ox 95 96 93 89 O2 Delivery Room Air Room Air Nasal Cannula Nasal Cannula O2 Flow Rate 2.0 07/10/18 07/10/18 07/10/18 07/10/18 08:10 08:27 11:00 13:21 Temp 98.2 98.2 Pulse 102 Resp B/P (MAP) 118/58 (78) Pulse Ox 96 96 96 O2 Delivery Nasal Cannula Nasal Cannula Nasal Cannula Room Air O2 Flow Rate 2.0 2.0 2.0 07/10/18 14:21 Resp 17 Pulse Ox 96 O2 Delivery Nasal Cannula O2 Flow Rate 2.0 Intake and Output 07/09/18 07/09/18 07/10/18 15:00 23:00 07:00 Intake Total 200 ml 120 ml Output Total 550 ml 1275 ml Balance -350 ml -1155 ml GIL KRAUSE III DO Jul 10, 2018 15:11
[2018-07-10 19:20] VITALS: BP 109/59
[2018-07-10] MEDS: ATORVASTATIN CALCIUM 10 MG TABLET. PO SCH (20:18)
[2018-07-10] MEDS: traZODone 50 MG TABLET. PO SCH (20:18)
[2018-07-10] MEDS: INSULIN GLARGINE 300 UNITS/3 ML INSULN.PEN. SQ SCH (20:24)
[2018-07-10 23:12] VITALS: BP 99/62
[2018-07-11 03:05] VITALS: BP 106/63
[2018-07-11] MEDS: HYDROcodone/APAP 7.5/325MG 1 TAB TABLET PO PRN ×4 (03:56→21:22)
[2018-07-11 04:57] LABS: BASO % 0 % (0-3); EOS # 0.1 x10^3/uL (0.0-0.7); EOS % 2 % (0-3); HEMATOCRIT 23.7 % (39.0-53.0); HEMOGLOBIN 8.1 g/dL (13.0-17.5); LYMPH % 27 % (24-48); MEAN CORPUSCULAR HEMOGLOBIN 31 pg (25-35); MEAN CORPUSCULAR HGB CONC 34 g/dL (31-37); MEAN CORPUSCULAR VOLUME 91 fL (79-100); MONO # 0.9 x10^3/uL (0.0-1.1); MONO % 12 % (0-9); NEUT # 4.4 x10^3uL (1.8-7.7); NEUT % 59 % (31-73); PLATELET COUNT 152 x10^3/uL (140-400); RED BLOOD COUNT 2.61 x10^6/uL (4.30-5.70); RED CELL DISTRIBUTION WIDTH 14.7 % (11.5-14.5); WHITE BLOOD COUNT 7.5 x10^3/uL (4.0-11.0)
[2018-07-11 05:27] LABS: CREATININE 0.9 mg/dL (0.7-1.3); GFR 83.2; POTASSIUM 3.3 mmol/L (3.5-5.1)
[2018-07-11 07:00] VITALS: BP 132/76
[2018-07-11] MEDS: CHOLECALCIFEROL (VITAMIN D3) 1,000 UNIT TABLET PO SCH (08:18)
[2018-07-11] MEDS: SPIRONOLACTONE 25 MG TABLET PO SCH (08:18)
[2018-07-11] MEDS: ALPRAZolam 1 MG TABLET PO PRN ×3 (08:18→21:21)
[2018-07-11] MEDS: SERTRALINE 25 MG TABLET. PO SCH (08:19)
[2018-07-11] MEDS: FUROSEMIDE 40 MG TABLET. PO SCH (08:19)
[2018-07-11] MEDS: ASPIRIN 325 MG TABLET PO SCH (08:19)
[2018-07-11] MEDS: SENNOSIDES/DOCUSATE 8.6/50MG TABLET. PO SCH (08:20)
[2018-07-11] MEDS ORDERED: DOXAZOSIN MESYLATE 4 MG TABLET. PO SCH (09:00)
--- NOTE | 2018-07-11 10:54 | PDOC ---
PROGRESS NOTES Chief Complaint Chief Complaint IMPRESSION== POD #3 Tib/fib ORIF Anxiety Arthritis COPD Depression Diabetes HLD Insomnia acute blood loss anemia, expected History of Present Illness History of Present Illness Pt. seen and examined Pt. alert and oriented VSS DW nursing Bandage clean, dry and intact w/ alecia wraps Neurovascularly intact Vitals Vitals Vital Signs Date Time Temp Pulse Resp B/P (MAP) Pulse Ox O2 Delivery O2 Flow Rate FiO2 07/11/18 08:20 17 99 Nasal Cannula 2.0 07/11/18 08:19 103 132/76 07/11/18 07:00 97.9 97.9 Physical Exam General: Alert, Oriented X3, Cooperative, No acute distress Heart: Regular rate, Normal S1, Normal S2, No murmurs Lungs: Wheezing Abdomen: Soft, No tenderness Extremities: No clubbing, No cyanosis, Normal pulses, Other (Clean dry intact dressing with ALECIA wraps in place. Pt can move his toes and has sensation to light touch.) Skin: No rashes, No breakdown Labs LABS Laboratory Tests Test 07/10/18 11:15 07/10/18 16:41 07/10/18 20:17 07/11/18 04:00 Glucose (Fingerstick) 85 mg/dL (70-99) 105 mg/dL (70-99) 110 mg/dL (70-99) White Blood Count 7.5 x10^3/uL (4.0-11.0) Red Blood Count 2.61 x10^6/uL (4.30-5.70) Hemoglobin 8.1 g/dL (13.0-17.5) Hematocrit 23.7 % (39.0-53.0) Mean Corpuscular Volume 91 fL (79-100) Mean Corpuscular Hemoglobin 31 pg (25-35) Mean Corpuscular Hemoglobin Concent 34 g/dL (31-37) Red Cell Distribution Width 14.7 % (11.5-14.5) Platelet Count 152 x10^3/uL (140-400) Neutrophils (%) (Auto) 59 % (31-73) Lymphocytes (%) (Auto) 27 % (24-48) Monocytes (%) (Auto) 12 % (0-9) Eosinophils (%) (Auto) 2 % (0-3) Basophils (%) (Auto) 0 % (0-3) Neutrophils # (Auto) 4.4 x10^3uL (1.8-7.7) Lymphocytes # (Auto) 2.0 x10^3/uL (1.0-4.8) Monocytes # (Auto) 0.9 x10^3/uL (0.0-1.1) Eosinophils # (Auto) 0.1 x10^3/uL (0.0-0.7) Basophils # (Auto) 0.0 x10^3/uL (0.0-0.2) Sodium Level 139 mmol/L (136-145) Potassium Level 3.3 mmol/L (3.5-5.1) Chloride Level 105 mmol/L (98-107) Carbon Dioxide Level 28 mmol/L (21-32) Anion Gap 6 (6-14) Blood Urea Nitrogen 5 mg/dL (8-26) Creatinine 0.9 mg/dL (0.7-1.3) Estimated GFR (Cockcroft-Gault) 83.2 Glucose Level 108 mg/dL (70-99) Calcium Level 8.0 mg/dL (8.5-10.1) Test 07/11/18 07:26 Glucose (Fingerstick) 99 mg/dL (70-99) Assessment and Plan Assessmemt and Plan Problems Medical Problems: (1) Fracture of distal end of tibia with fibula Status: Acute Comment Review of Relevant I have reviewed the following items quentin (where applicable) has been applied. Labs Laboratory Tests Test 07/09/18 12:09 07/09/18 16:42 07/09/18 17:00 07/09/18 21:00 Glucose (Fingerstick) 130 mg/dL (70-99) 141 mg/dL (70-99) 123 mg/dL (70-99) Hemoglobin 9.4 g/dL (13.0-17.5) Hematocrit 28.2 % (39.0-53.0) Mean Corpuscular Hemoglobin Concent 33 g/dL (31-37) Test 07/10/18 03:45 07/10/18 08:07 07/10/18 11:15 07/10/18 16:41 White Blood Count 8.4 x10^3/uL (4.0-11.0) Red Blood Count 2.74 x10^6/uL (4.30-5.70) Hemoglobin 8.5 g/dL (13.0-17.5) Hematocrit 24.9 % (39.0-53.0) Mean Corpuscular Volume 91 fL (79-100) Mean Corpuscular Hemoglobin 31 pg (25-35) Mean Corpuscular Hemoglobin Concent 34 g/dL (31-37) Red Cell Distribution Width 14.9 % (11.5-14.5) Platelet Count 148 x10^3/uL (140-400) Neutrophils (%) (Auto) 62 % (31-73) Lymphocytes (%) (Auto) 24 % (24-48) Monocytes (%) (Auto) 14 % (0-9) Eosinophils (%) (Auto) 1 % (0-3) Basophils (%) (Auto) 0 % (0-3) Neutrophils # (Auto) 5.2 x10^3uL (1.8-7.7) Lymphocytes # (Auto) 2.0 x10^3/uL (1.0-4.8) Monocytes # (Auto) 1.2 x10^3/uL (0.0-1.1) Eosinophils # (Auto) 0.1 x10^3/uL (0.0-0.7) Basophils # (Auto) 0.0 x10^3/uL (0.0-0.2) Sodium Level 139 mmol/L (136-145) Potassium Level 3.5 mmol/L (3.5-5.1) Chloride Level 104 mmol/L (98-107) Carbon Dioxide Level 27 mmol/L (21-32) Anion Gap 8 (6-14) Blood Urea Nitrogen 5 mg/dL (8-26) Creatinine 1.0 mg/dL (0.7-1.3) Estimated GFR (Cockcroft-Gault) 73.7 Glucose Level 94 mg/dL (70-99) Calcium Level 8.0 mg/dL (8.5-10.1) Glucose (Fingerstick) 116 mg/dL (70-99) 85 mg/dL (70-99) 105 mg/dL (70-99) Test 07/10/18 20:17 07/11/18 04:00 07/11/18 07:26 Glucose (Fingerstick) 110 mg/dL (70-99) 99 mg/dL (70-99) White Blood Count 7.5 x10^3/uL (4.0-11.0) Red Blood Count 2.61 x10^6/uL (4.30-5.70) Hemoglobin 8.1 g/dL (13.0-17.5) Hematocrit 23.7 % (39.0-53.0) Mean Corpuscular Volume 91 fL (79-100) Mean Corpuscular Hemoglobin 31 pg (25-35) Mean Corpuscular Hemoglobin Concent 34 g/dL (31-37) Red Cell Distribution Width 14.7 % (11.5-14.5) Platelet Count 152 x10^3/uL (140-400) Neutrophils (%) (Auto) 59 % (31-73) Lymphocytes (%) (Auto) 27 % (24-48) Monocytes (%) (Auto) 12 % (0-9) Eosinophils (%) (Auto) 2 % (0-3) Basophils (%) (Auto) 0 % (0-3) Neutrophils # (Auto) 4.4 x10^3uL (1.8-7.7) Lymphocytes # (Auto) 2.0 x10^3/uL (1.0-4.8) Monocytes # (Auto) 0.9 x10^3/uL (0.0-1.1) Eosinophils # (Auto) 0.1 x10^3/uL (0.0-0.7) Basophils # (Auto) 0.0 x10^3/uL (0.0-0.2) Sodium Level 139 mmol/L (136-145) Potassium Level 3.3 mmol/L (3.5-5.1) Chloride Level 105 mmol/L (98-107) Carbon Dioxide Level 28 mmol/L (21-32) Anion Gap 6 (6-14) Blood Urea Nitrogen 5 mg/dL (8-26) Creatinine 0.9 mg/dL (0.7-1.3) Estimated GFR (Cockcroft-Gault) 83.2 Glucose Level 108 mg/dL (70-99) Calcium Level 8.0 mg/dL (8.5-10.1) Laboratory Tests Test 07/10/18 11:15 07/10/18 16:41 07/10/18 20:17 07/11/18 04:00 Glucose (Fingerstick) 85 mg/dL (70-99) 105 mg/dL (70-99) 110 mg/dL (70-99) White Blood Count 7.5 x10^3/uL (4.0-11.0) Red Blood Count 2.61 x10^6/uL (4.30-5.70) Hemoglobin 8.1 g/dL (13.0-17.5) Hematocrit 23.7 % (39.0-53.0) Mean Corpuscular Volume 91 fL (79-100) Mean Corpuscular Hemoglobin 31 pg (25-35) Mean Corpuscular Hemoglobin Concent 34 g/dL (31-37) Red Cell Distribution Width 14.7 % (11.5-14.5) Platelet Count 152 x10^3/uL (140-400) Neutrophils (%) (Auto) 59 % (31-73) Lymphocytes (%) (Auto) 27 % (24-48) Monocytes (%) (Auto) 12 % (0-9) Eosinophils (%) (Auto) 2 % (0-3) Basophils (%) (Auto) 0 % (0-3) Neutrophils # (Auto) 4.4 x10^3uL (1.8-7.7) Lymphocytes # (Auto) 2.0 x10^3/uL (1.0-4.8) Monocytes # (Auto) 0.9 x10^3/uL (0.0-1.1) Eosinophils # (Auto) 0.1 x10^3/uL (0.0-0.7) Basophils # (Auto) 0.0 x10^3/uL (0.0-0.2) Sodium Level 139 mmol/L (136-145) Potassium Level 3.3 mmol/L (3.5-5.1) Chloride Level 105 mmol/L (98-107) Carbon Dioxide Level 28 mmol/L (21-32) Anion Gap 6 (6-14) Blood Urea Nitrogen 5 mg/dL (8-26) Creatinine 0.9 mg/dL (0.7-1.3) Estimated GFR (Cockcroft-Gault) 83.2 Glucose Level 108 mg/dL (70-99) Calcium Level 8.0 mg/dL (8.5-10.1) Test 07/11/18 07:26 Glucose (Fingerstick) 99 mg/dL (70-99) Medications Current Medications Dextrose/Lactated Ringer's 1,000 ml @ 75 mls/hr 1X ONCE IV Last administered on 07/07/18at 20:00; Start 07/07/18 at 20:00; Stop 07/08/18 at 09:19; Status DC Morphine Sulfate (Morphine Sulfate) 5 mg Q2H PRN IV pain Last administered on at 10:42; Start 07/07/18 at 20:00; Stop 07/08/18 at 18:23; Status DC Sodium Chloride 1,000 ml @ 1,000 mls/hr 1X ONCE IV Last administered on at 20:43; Start 07/07/18 at 21:00; Stop 07/07/18 at 21:59; Status DC Dextrose/Lactated Ringer's 1,000 ml @ 125 mls/hr 1X ONCE IV Last administered on 07/07/18at 21:45; Start 07/07/18 at 21:45; Stop 07/08/18 at 05:44 ; Status DC Sodium Chloride 1,000 ml @ 1,000 mls/hr Q1H IV Last administered on 07/08/18at 00:54; Start 07/07/18 at 23:00; Stop 07/08/18 at 01:19; Status DC Ceftriaxone Sodium 50 ml @ 100 mls/hr 1X ONCE IV ; Start 07/07/18 at 23:00; Stop 07/07/18 at 23:29; Status Cancel Ceftriaxone Sodium (Rocephin) 1 gm 1X ONCE IVP Last administered on 07/08/18at 01:00; Start 07/08/18 at 01:00; Stop 07/08/18 at 01:01; Status DC Ondansetron HCl (Zofran) 4 mg PRN Q6HRS PRN IV NAUSEA/VOMITING; Start 07/08/18 at 09:15; Stop 07/08/18 at 18:23; Status DC Fentanyl Citrate (Fentanyl 2ml Vial) 25 mcg PRN Q5MIN PRN IV MILD PAIN; Start 07/08/18 at 09:15; Stop 07/08/18 at 18:23; Status DC Fentanyl Citrate (Fentanyl 2ml Vial) 50 mcg PRN Q5MIN PRN IV MODERATE TO SEVERE PAIN Last administered on 07/08/18at 17:46; Start 07/08/18 at 09:15; Stop 07/08/18 at 18:23; Status DC Morphine Sulfate (Morphine Sulfate) 1 mg PRN Q10MIN PRN IV SEVERE PAIN; Start 07/08/18 at 09:15; Stop 07/08/18 at 18:23; Status DC Ringer's Solution 1,000 ml @ 30 mls/hr Q24H IV Last administered on 07/08/18at 13:24; Start 07/08/18 at 09:03; Stop 07/08/18 at 18:23; Status DC Lidocaine HCl (Xylocaine-Mpf 1% 2ml Vial) 2 ml 1X PRN PRN ID IV START; Start at 09:15; Stop 07/08/18 at 23:00; Status DC Hydromorphone HCl (Dilaudid) 0.5 mg PRN Q10MIN PRN IV SEV PAIN, Second choice; Start 07/08/18 at 09:15; Stop 07/08/18 at 18:23; Status DC Prochlorperazine Edisylate (Compazine) 5 mg PACU PRN PRN IV NAUSEA, MRX1 Last administered on 07/08/18at 17:46; Start 07/08/18 at 09:15; Stop 07/08/18 at 18:23 ; Status DC Lidocaine HCl (Lidocaine Pf 2% Vial) 5 ml STK-MED ONCE .ROUTE ; Start 07/08/18 at 12:25; Stop 07/08/18 at 12:26; Status DC Propofol 20 ml @ As Directed STK-MED ONCE IV ; Start 07/08/18 at 12:26; Stop at 12:27; Status DC Dexamethasone Sodium Phosphate (Decadron) 20 mg STK-MED ONCE .ROUTE ; Start at 12:26; Stop 07/08/18 at 12:27; Status DC Ondansetron HCl (Zofran) 4 mg STK-MED ONCE .ROUTE ; Start 07/08/18 at 12:26; Stop 07/08/18 at 12:27; Status DC Fentanyl Citrate (Fentanyl 2ml Vial) 100 mcg STK-MED ONCE .ROUTE ; Start at 12:26; Stop 07/08/18 at 12:27; Status DC Bupivacaine HCl/ Epinephrine Bitart (Marcaine-Epi 0.25%-[id number]) 50 ml STK-MED ONCE .ROUTE Last administered on 07/08/18at 16:30; Start 07/08/18 at 11:39; Stop 07/08/18 at 12:39; Status DC Rocuronium [place] (Zemuron) 50 mg STK-MED ONCE .ROUTE ; Start 07/08/18 at 12:57 ; Stop 07/08/18 at 12:58; Status DC Cefazolin Sodium/ Dextrose 50 ml @ 100 mls/hr 1X ONCE IV Last administered on 07/08/18at 14:17; Start 07/08/18 at 13:30; Stop 07/08/18 at 13:59; Status DC Fentanyl Citrate (Fentanyl 2ml Vial) 100 mcg STK-MED ONCE .ROUTE ; Start at 14:26; Stop 07/08/18 at 14:27; Status DC Rocuronium [place] (Zemuron) 50 mg STK-MED ONCE .ROUTE ; Start 07/08/18 at 14:46 ; Stop 07/08/18 at 14:47; Status DC Cefazolin Sodium/ Dextrose 50 ml @ 100 mls/hr 1X ONCE IV Last administered on 07/08/18at 16:01; Start 07/08/18 at 16:00; Stop 07/08/18 at 16:29; Status DC Glycopyrrolate (Robinul) 1 mg STK-MED ONCE .ROUTE ; Start 07/08/18 at 16:26; Stop 07/08/18 at 16:27; Status DC Neostigmine Methylsulfate (Bloxiverz) 10 mg STK-MED ONCE .ROUTE ; Start at 16:26; Stop 07/08/18 at 16:27; Status DC Sevoflurane (Ultane) 90 ml STK-MED ONCE IH ; Start 07/08/18 at 16:30; Stop 07/08 at 16:31; Status DC Oxycodone HCl (Roxicodone) 5 mg PRN Q3HRS PRN PO SEVERE PAIN (2ND CHOICE) Last administered on 07/09/18at 08:47; Start 07/08/18 at 17:15 Morphine Sulfate (Morphine Sulfate) 2 mg PRN Q1HR PRN IV MODERATE PAIN Last administered on 07/08/18at 17:30; Start 07/08/18 at 17:15 Fentanyl Citrate (Fentanyl 2ml Vial) 25 mcg PRN Q1HR PRN IV PAIN Last administered on 07/10/18at 23:49; Start 07/08/18 at 17:15 Senna/Docusate Sodium (Senna Plus) 1 tab DAILY PO ; Start 07/09/18 at 09:00 Polyethylene Glycol (miraLAX PACKET) 17 gm PRN DAILY PRN PO CONSTIPATION; Start 07/08/18 at 17:15 Vitamin D (Vitamin D3) 2,000 unit DAILY PO Last administered on 07/11/18at 08:18 ; Start 07/09/18 at 09:00 Ondansetron HCl (Zofran) 4 mg PRN Q4HRS PRN IV NAUSEA/VOMITING Last administered on 07/09/18at 13:37; Start 07/08/18 at 17:15 Aspirin (Aureliano Aspirin) 325 mg DAILYWBKFT PO Last administered on 07/11/18at 08: 19; Start 07/09/18 at 08:00 Magnesium Hydroxide (Milk Of Magnesia) 2,400 mg 1X PRN PRN PO CONSTIPATION; Start 07/09/18 at 06:00; Stop 07/10/18 at 05:59; Status DC Bisacodyl (Dulcolax Supp) 10 mg 1X PRN PRN IN CONSTIPATION; Start 07/09/18 at 16 :00; Stop 07/10/18 at 15:59; Status DC Acetaminophen/ Hydrocodone Bitart (Lortab 7.5/325) 1 tab PRN Q4HRS PRN PO MODERATE PAIN Last administered on 07/09/18at 06:19; Start 07/08/18 at 17:15 Morphine Sulfate (Morphine Sulfate) 4 mg PRN Q2HR PRN IV SEVERE PAIN Last administered on 07/09/18at 13:35; Start 07/08/18 at 17:15 Acetaminophen/ Hydrocodone Bitart (Lortab 7.5/325) 2 tab PRN Q4HRS PRN PO SEVERE PAIN (1ST CHOICE) Last administered on 07/11/18at 08:20; Start 07/08/18 at 17:15 Dextrose (Dextrose 50%-Water Syringe) 12.5 gm PRN Q15MIN PRN IV SEE COMMENTS; Start 07/08/18 at 17:15 Cefazolin Sodium/ Dextrose 50 ml @ 100 mls/hr Q6H IV Last administered on at 10:06; Start 07/08/18 at 22:00; Stop 07/09/18 at 10:29; Status DC Morphine Sulfate (Morphine Sulfate) 2 mg STK-MED ONCE .ROUTE ; Start 07/08/18 at 17:17; Stop 07/08/18 at 17:18; Status DC Albuterol Sulfate (Ventolin Neb Soln) 2.5 mg 1X ONCE NEB Last administered on 07/08/18at 18:31; Start 07/08/18 at 18:30; Stop 07/08/18 at 18:31; Status DC Albuterol Sulfate (Ventolin Neb Soln) 5 mg PRN Q4HRS PRN NEB SHORTNESS OF BREATH; Start 07/09/18 at 14:30 Alprazolam (Xanax) 1 mg PRN BID PRN PO ANXIETY / AGITATION Last administered on 07/10/18at 20:18; Start 07/09/18 at 14:30 Atorvastatin Calcium (Lipitor) 5 mg HS PO Last administered on 07/10/18at 20:18; Start 07/09/18 at 21:00 Doxazosin Mesylate (Cardura) 4 mg QODAY PO Last administered on 07/11/18at 08:19 ; Start 07/11/18 at 09:00 Furosemide (Lasix) 40 mg DAILY PO Last administered on 07/11/18at 08:19; Start at 09:00 Acetaminophen/ Hydrocodone Bitart (Lortab 7.5/325) 1 tab PRN Q6HRS PRN PO MODERATE PAIN; Start 07/09/18 at 14:30; Stop 07/10/18 at 15:32; Status DC Insulin Glargine (Lantus) 25 units QHS SQ Last administered on 07/10/18at 20:24; Start 07/09/18 at 21:00 Trazodone HCl (Desyrel) 250 mg HS PO Last administered on 07/10/18at 20:18; Start 07/09/18 at 21:00 Non-Formulary Medication (Albuterol Sulfate (Proair Hfa Inhaler)) 1 puff PRN Q6HRS PRN INH SHORTNESS OF BREATH; Start 07/09/18 at 14:30; Status UNV Metformin HCl (Glucophage) 1,000 mg BIDWMEALS PO Last administered on 07/11/18at 08:19; Start 07/09/18 at 17:00 Sertraline HCl (Zoloft) 25 mg DAILY PO Last administered on 07/11/18at 08:19; Start 07/10/18 at 09:00 Spironolactone (Aldactone) 25 mg DAILY PO Last administered on 07/11/18at 08:18; Start 07/10/18 at 09:00 Active Scripts Active Reported Xanax (Alprazolam) 1 Mg Tablet 1 Tab PO PRN BID Hydrocodone-Apap 7.5-325 (Hydrocodone Bit/Acetaminophen) 1 Each Tablet 1 Tab PO PRN Q6HRS PRN Proair Hfa Inhaler (Albuterol Sulfate) 8.5 Gm Hfa.aer.ad 1 Puff INH PRN Q6HRS PRN Albuterol Sulfate Neb Soln (Albuterol Sulfate) 2.5 Mg/3 Ml Vial.neb 5 Mg NEB PRN Q4HRS PRN Doxazosin Mesylate 4 Mg Tablet 4 Mg PO QODAY Lasix (Furosemide) 40 Mg Tablet 40 Mg PO DAILY Lantus Solostar (Insulin Glargine,Hum.rec.anlog) 100 Unit/1 Ml Insuln.pen 25 Unit SQ QHS Metformin Hcl 1,000 Mg Tablet 1,000 Mg PO BIDACBL Spironolactone 25 Mg Tablet 25 Mg PO DAILY Aspirin Ec (Aspirin) 81 Mg Tablet.dr 81 Mg PO DAILY Lipitor (Atorvastatin Calcium) 10 Mg Tablet 5 Mg PO HS Trazodone Hcl 50 Mg Tablet 250 Mg PO HS Zoloft (Sertraline Hcl) 25 Mg Tablet 25 Mg PO DAILY Vitals/I & O Vital Sign - Last 24 Hours 07/10/18 07/10/18 07/10/18 07/10/18 11:00 13:21 15:00 19:20 Temp 98.2 98.2 98.0 98.2 98.2 98.0 Pulse 102 102 104 Resp 18 18 B/P (MAP) 118/58 (78) 118/58 (78) 109/59 (76) Pulse Ox 96 96 96 92 O2 Delivery Nasal Cannula Room Air Nasal Cannula Room Air O2 Flow Rate 2.0 2.0 07/10/18 07/10/18 07/10/18 07/10/18 20:00 20:19 23:12 23:48 Temp 98.1 98.1 Pulse 100 Resp 20 20 20 B/P (MAP) 99/62 (74) Pulse Ox 92 95 95 O2 Delivery Room Air Room Air Room Air Room Air 07/10/18 07/11/18 07/11/18 07/11/18 23:49 00:19 03:05 03:56 Temp 98.0 98.0 Pulse 111 Resp 20 20 18 20 B/P (MAP) 106/63 (77) Pulse Ox 95 95 92 O2 Delivery Room Air Room Air Room Air Room Air O2 Flow Rate 2.0 07/11/18 07/11/18 07/11/18 07/11/18 04:56 07:00 08:19 08:20 Temp 97.9 97.9 Pulse 103 103 Resp 20 18 17 B/P (MAP) 132/76 (94) 132/76 Pulse Ox 92 99 99 O2 Delivery Nasal Cannula Room Air Nasal Cannula O2 Flow Rate 2.0 2.0 Intake and Output 07/10/18 07/10/18 07/11/18 15:00 23:00 07:00 Intake Total 430 ml 420 ml Output Total 1600 ml 940 ml Balance 430 ml -1600 ml -520 ml LEE FITCH MD Jul 11, 2018 10:54
[2018-07-11 11:00] VITALS: BP 110/56
[2018-07-11] MEDS: ALBUTEROL SULFATE 2.5 MG/3 ML NEBU. NEB PRN (11:05)
[2018-07-11 15:00] VITALS: BP 93/54
[2018-07-11 19:00] VITALS: BP 114/63
[2018-07-11] MEDS: traZODone 50 MG TABLET. PO SCH (21:21)
[2018-07-11] MEDS: ATORVASTATIN CALCIUM 10 MG TABLET. PO SCH (21:22)
[2018-07-11] MEDS: INSULIN GLARGINE 300 UNITS/3 ML INSULN.PEN. SQ SCH (21:29)
[2018-07-11 23:00] VITALS: BP 110/69
[2018-07-12 03:00] VITALS: BP 108/67
[2018-07-12 04:36] LABS: BASO % 1 % (0-3); EOS # 0.2 x10^3/uL (0.0-0.7); EOS % 4 % (0-3); HEMATOCRIT 23.6 % (39.0-53.0); HEMOGLOBIN 7.8 g/dL (13.0-17.5); LYMPH # 1.6 x10^3/uL (1.0-4.8); LYMPH % 28 % (24-48); MEAN CORPUSCULAR HEMOGLOBIN 30 pg (25-35); MEAN CORPUSCULAR HGB CONC 33 g/dL (31-37); MEAN CORPUSCULAR VOLUME 91 fL (79-100); MONO # 0.9 x10^3/uL (0.0-1.1); MONO % 15 % (0-9); NEUT % 52 % (31-73); PLATELET COUNT 185 x10^3/uL (140-400); RED BLOOD COUNT 2.59 x10^6/uL (4.30-5.70); RED CELL DISTRIBUTION WIDTH 14.5 % (11.5-14.5); WHITE BLOOD COUNT 5.7 x10^3/uL (4.0-11.0)
[2018-07-12 04:47] LABS: CALCIUM 7.7 mg/dL (8.5-10.1); GFR 73.7; POTASSIUM 3.5 mmol/L (3.5-5.1)
[2018-07-12 07:00] VITALS: BP 106/55
[2018-07-12] MEDS: ASPIRIN 325 MG TABLET PO SCH (08:38)
[2018-07-12] MEDS: SPIRONOLACTONE 25 MG TABLET PO SCH (08:38)
[2018-07-12] MEDS: SERTRALINE 25 MG TABLET. PO SCH (08:38)
[2018-07-12] MEDS: FUROSEMIDE 40 MG TABLET. PO SCH (08:39)
[2018-07-12] MEDS: CHOLECALCIFEROL (VITAMIN D3) 1,000 UNIT TABLET PO SCH (08:39)
[2018-07-12] MEDS: HYDROcodone/APAP 7.5/325MG 1 TAB TABLET PO PRN ×2 (08:45→16:08)
[2018-07-12] MEDS: SENNOSIDES/DOCUSATE 8.6/50MG TABLET. PO SCH (08:52)
[2018-07-12] MEDS: ALBUTEROL SULFATE 2.5 MG/3 ML NEBU. NEB PRN (09:09)
--- NOTE | 2018-07-12 11:10 | PDOC ---
PROGRESS NOTES Chief Complaint Chief Complaint IMPRESSION== POD #3 Tib/fib ORIF Anxiety Arthritis COPD Depression Diabetes HLD Insomnia acute blood loss anemia, expected History of Present Illness History of Present Illness Pt. seen and examined Pt. alert and oriented VSS DW nursing Bandage clean, dry and intact w/ alecia wraps Neurovascularly intact Vitals Vitals Vital Signs Date Time Temp Pulse Resp B/P (MAP) Pulse Ox O2 Delivery O2 Flow Rate FiO2 07/12/18 09:45 90 Room Air 2.0 07/12/18 07:00 97.9 91 18 106/55 (72) 97.9 Physical Exam General: Alert, Oriented X3, Cooperative, No acute distress Heart: Regular rate, Normal S1, Normal S2, No murmurs Lungs: Wheezing Abdomen: Soft, No tenderness Extremities: No clubbing, No cyanosis, Normal pulses, Other (Clean dry intact dressing with ALECIA wraps in place. Pt can move his toes and has sensation to light touch.) Skin: No rashes, No breakdown Labs LABS Laboratory Tests Test 07/11/18 11:21 07/11/18 16:55 07/11/18 21:18 07/12/18 03:40 Glucose (Fingerstick) 102 mg/dL (70-99) 87 mg/dL (70-99) 141 mg/dL (70-99) White Blood Count 5.7 x10^3/uL (4.0-11.0) Red Blood Count 2.59 x10^6/uL (4.30-5.70) Hemoglobin 7.8 g/dL (13.0-17.5) Hematocrit 23.6 % (39.0-53.0) Mean Corpuscular Volume 91 fL (79-100) Mean Corpuscular Hemoglobin 30 pg (25-35) Mean Corpuscular Hemoglobin Concent 33 g/dL (31-37) Red Cell Distribution Width 14.5 % (11.5-14.5) Platelet Count 185 x10^3/uL (140-400) Neutrophils (%) (Auto) 52 % (31-73) Lymphocytes (%) (Auto) 28 % (24-48) Monocytes (%) (Auto) 15 % (0-9) Eosinophils (%) (Auto) 4 % (0-3) Basophils (%) (Auto) 1 % (0-3) Neutrophils # (Auto) 3.0 x10^3uL (1.8-7.7) Lymphocytes # (Auto) 1.6 x10^3/uL (1.0-4.8) Monocytes # (Auto) 0.9 x10^3/uL (0.0-1.1) Eosinophils # (Auto) 0.2 x10^3/uL (0.0-0.7) Basophils # (Auto) 0.0 x10^3/uL (0.0-0.2) Sodium Level 142 mmol/L (136-145) Potassium Level 3.5 mmol/L (3.5-5.1) Chloride Level 107 mmol/L (98-107) Carbon Dioxide Level 31 mmol/L (21-32) Anion Gap 4 (6-14) Blood Urea Nitrogen 6 mg/dL (8-26) Creatinine 1.0 mg/dL (0.7-1.3) Estimated GFR (Cockcroft-Gault) 73.7 Glucose Level 108 mg/dL (70-99) Calcium Level 7.7 mg/dL (8.5-10.1) Test 07/12/18 07:55 Glucose (Fingerstick) 97 mg/dL (70-99) Assessment and Plan Assessmemt and Plan Problems Medical Problems: (1) Fracture of distal end of tibia with fibula Status: Acute Comment Review of Relevant I have reviewed the following items quentin (where applicable) has been applied. Labs Laboratory Tests Test 07/10/18 11:15 07/10/18 16:41 07/10/18 20:17 07/11/18 04:00 Glucose (Fingerstick) 85 mg/dL (70-99) 105 mg/dL (70-99) 110 mg/dL (70-99) White Blood Count 7.5 x10^3/uL (4.0-11.0) Red Blood Count 2.61 x10^6/uL (4.30-5.70) Hemoglobin 8.1 g/dL (13.0-17.5) Hematocrit 23.7 % (39.0-53.0) Mean Corpuscular Volume 91 fL (79-100) Mean Corpuscular Hemoglobin 31 pg (25-35) Mean Corpuscular Hemoglobin Concent 34 g/dL (31-37) Red Cell Distribution Width 14.7 % (11.5-14.5) Platelet Count 152 x10^3/uL (140-400) Neutrophils (%) (Auto) 59 % (31-73) Lymphocytes (%) (Auto) 27 % (24-48) Monocytes (%) (Auto) 12 % (0-9) Eosinophils (%) (Auto) 2 % (0-3) Basophils (%) (Auto) 0 % (0-3) Neutrophils # (Auto) 4.4 x10^3uL (1.8-7.7) Lymphocytes # (Auto) 2.0 x10^3/uL (1.0-4.8) Monocytes # (Auto) 0.9 x10^3/uL (0.0-1.1) Eosinophils # (Auto) 0.1 x10^3/uL (0.0-0.7) Basophils # (Auto) 0.0 x10^3/uL (0.0-0.2) Sodium Level 139 mmol/L (136-145) Potassium Level 3.3 mmol/L (3.5-5.1) Chloride Level 105 mmol/L (98-107) Carbon Dioxide Level 28 mmol/L (21-32) Anion Gap 6 (6-14) Blood Urea Nitrogen 5 mg/dL (8-26) Creatinine 0.9 mg/dL (0.7-1.3) Estimated GFR (Cockcroft-Gault) 83.2 Glucose Level 108 mg/dL (70-99) Calcium Level 8.0 mg/dL (8.5-10.1) Test 07/11/18 07:26 07/11/18 11:21 07/11/18 16:55 07/11/18 21:18 Glucose (Fingerstick) 99 mg/dL (70-99) 102 mg/dL (70-99) 87 mg/dL (70-99) 141 mg/dL (70-99) Test 07/12/18 03:40 07/12/18 07:55 White Blood Count 5.7 x10^3/uL (4.0-11.0) Red Blood Count 2.59 x10^6/uL (4.30-5.70) Hemoglobin 7.8 g/dL (13.0-17.5) Hematocrit 23.6 % (39.0-53.0) Mean Corpuscular Volume 91 fL (79-100) Mean Corpuscular Hemoglobin 30 pg (25-35) Mean Corpuscular Hemoglobin Concent 33 g/dL (31-37) Red Cell Distribution Width 14.5 % (11.5-14.5) Platelet Count 185 x10^3/uL (140-400) Neutrophils (%) (Auto) 52 % (31-73) Lymphocytes (%) (Auto) 28 % (24-48) Monocytes (%) (Auto) 15 % (0-9) Eosinophils (%) (Auto) 4 % (0-3) Basophils (%) (Auto) 1 % (0-3) Neutrophils # (Auto) 3.0 x10^3uL (1.8-7.7) Lymphocytes # (Auto) 1.6 x10^3/uL (1.0-4.8) Monocytes # (Auto) 0.9 x10^3/uL (0.0-1.1) Eosinophils # (Auto) 0.2 x10^3/uL (0.0-0.7) Basophils # (Auto) 0.0 x10^3/uL (0.0-0.2) Sodium Level 142 mmol/L (136-145) Potassium Level 3.5 mmol/L (3.5-5.1) Chloride Level 107 mmol/L (98-107) Carbon Dioxide Level 31 mmol/L (21-32) Anion Gap 4 (6-14) Blood Urea Nitrogen 6 mg/dL (8-26) Creatinine 1.0 mg/dL (0.7-1.3) Estimated GFR (Cockcroft-Gault) 73.7 Glucose Level 108 mg/dL (70-99) Calcium Level 7.7 mg/dL (8.5-10.1) Glucose (Fingerstick) 97 mg/dL (70-99) Laboratory Tests Test 07/11/18 11:21 07/11/18 16:55 07/11/18 21:18 07/12/18 03:40 Glucose (Fingerstick) 102 mg/dL (70-99) 87 mg/dL (70-99) 141 mg/dL (70-99) White Blood Count 5.7 x10^3/uL (4.0-11.0) Red Blood Count 2.59 x10^6/uL (4.30-5.70) Hemoglobin 7.8 g/dL (13.0-17.5) Hematocrit 23.6 % (39.0-53.0) Mean Corpuscular Volume 91 fL (79-100) Mean Corpuscular Hemoglobin 30 pg (25-35) Mean Corpuscular Hemoglobin Concent 33 g/dL (31-37) Red Cell Distribution Width 14.5 % (11.5-14.5) Platelet Count 185 x10^3/uL (140-400) Neutrophils (%) (Auto) 52 % (31-73) Lymphocytes (%) (Auto) 28 % (24-48) Monocytes (%) (Auto) 15 % (0-9) Eosinophils (%) (Auto) 4 % (0-3) Basophils (%) (Auto) 1 % (0-3) Neutrophils # (Auto) 3.0 x10^3uL (1.8-7.7) Lymphocytes # (Auto) 1.6 x10^3/uL (1.0-4.8) Monocytes # (Auto) 0.9 x10^3/uL (0.0-1.1) Eosinophils # (Auto) 0.2 x10^3/uL (0.0-0.7) Basophils # (Auto) 0.0 x10^3/uL (0.0-0.2) Sodium Level 142 mmol/L (136-145) Potassium Level 3.5 mmol/L (3.5-5.1) Chloride Level 107 mmol/L (98-107) Carbon Dioxide Level 31 mmol/L (21-32) Anion Gap 4 (6-14) Blood Urea Nitrogen 6 mg/dL (8-26) Creatinine 1.0 mg/dL (0.7-1.3) Estimated GFR (Cockcroft-Gault) 73.7 Glucose Level 108 mg/dL (70-99) Calcium Level 7.7 mg/dL (8.5-10.1) Test 07/12/18 07:55 Glucose (Fingerstick) 97 mg/dL (70-99) Medications Current Medications Dextrose/Lactated Ringer's 1,000 ml @ 75 mls/hr 1X ONCE IV Last administered on 07/07/18at 20:00; Start 07/07/18 at 20:00; Stop 07/08/18 at 09:19; Status DC Morphine Sulfate (Morphine Sulfate) 5 mg Q2H PRN IV pain Last administered on at 10:42; Start 07/07/18 at 20:00; Stop 07/08/18 at 18:23; Status DC Sodium Chloride 1,000 ml @ 1,000 mls/hr 1X ONCE IV Last administered on at 20:43; Start 07/07/18 at 21:00; Stop 07/07/18 at 21:59; Status DC Dextrose/Lactated Ringer's 1,000 ml @ 125 mls/hr 1X ONCE IV Last administered on 07/07/18at 21:45; Start 07/07/18 at 21:45; Stop 07/08/18 at 05:44 ; Status DC Sodium Chloride 1,000 ml @ 1,000 mls/hr Q1H IV Last administered on 07/08/18at 00:54; Start 07/07/18 at 23:00; Stop 07/08/18 at 01:19; Status DC Ceftriaxone Sodium 50 ml @ 100 mls/hr 1X ONCE IV ; Start 07/07/18 at 23:00; Stop 07/07/18 at 23:29; Status Cancel Ceftriaxone Sodium (Rocephin) 1 gm 1X ONCE IVP Last administered on 07/08/18at 01:00; Start 07/08/18 at 01:00; Stop 07/08/18 at 01:01; Status DC Ondansetron HCl (Zofran) 4 mg PRN Q6HRS PRN IV NAUSEA/VOMITING; Start 07/08/18 at 09:15; Stop 07/08/18 at 18:23; Status DC Fentanyl Citrate (Fentanyl 2ml Vial) 25 mcg PRN Q5MIN PRN IV MILD PAIN; Start 07/08/18 at 09:15; Stop 07/08/18 at 18:23; Status DC Fentanyl Citrate (Fentanyl 2ml Vial) 50 mcg PRN Q5MIN PRN IV MODERATE TO SEVERE PAIN Last administered on 07/08/18at 17:46; Start 07/08/18 at 09:15; Stop 07/08/18 at 18:23; Status DC Morphine Sulfate (Morphine Sulfate) 1 mg PRN Q10MIN PRN IV SEVERE PAIN; Start 07/08/18 at 09:15; Stop 07/08/18 at 18:23; Status DC Ringer's Solution 1,000 ml @ 30 mls/hr Q24H IV Last administered on 07/08/18at 13:24; Start 07/08/18 at 09:03; Stop 07/08/18 at 18:23; Status DC Lidocaine HCl (Xylocaine-Mpf 1% 2ml Vial) 2 ml 1X PRN PRN ID IV START; Start at 09:15; Stop 07/08/18 at 23:00; Status DC Hydromorphone HCl (Dilaudid) 0.5 mg PRN Q10MIN PRN IV SEV PAIN, Second choice; Start 07/08/18 at 09:15; Stop 07/08/18 at 18:23; Status DC Prochlorperazine Edisylate (Compazine) 5 mg PACU PRN PRN IV NAUSEA, MRX1 Last administered on 07/08/18at 17:46; Start 07/08/18 at 09:15; Stop 07/08/18 at 18:23 ; Status DC Lidocaine HCl (Lidocaine Pf 2% Vial) 5 ml STK-MED ONCE .ROUTE ; Start 07/08/18 at 12:25; Stop 07/08/18 at 12:26; Status DC Propofol 20 ml @ As Directed STK-MED ONCE IV ; Start 07/08/18 at 12:26; Stop at 12:27; Status DC Dexamethasone Sodium Phosphate (Decadron) 20 mg STK-MED ONCE .ROUTE ; Start at 12:26; Stop 07/08/18 at 12:27; Status DC Ondansetron HCl (Zofran) 4 mg STK-MED ONCE .ROUTE ; Start 07/08/18 at 12:26; Stop 07/08/18 at 12:27; Status DC Fentanyl Citrate (Fentanyl 2ml Vial) 100 mcg STK-MED ONCE .ROUTE ; Start at 12:26; Stop 07/08/18 at 12:27; Status DC Bupivacaine HCl/ Epinephrine Bitart (Marcaine-Epi 0.25%-[id number]) 50 ml STK-MED ONCE .ROUTE Last administered on 07/08/18at 16:30; Start 07/08/18 at 11:39; Stop 07/08/18 at 12:39; Status DC Rocuronium Alliance (Zemuron) 50 mg STK-MED ONCE .ROUTE ; Start 07/08/18 at 12:57 ; Stop 07/08/18 at 12:58; Status DC Cefazolin Sodium/ Dextrose 50 ml @ 100 mls/hr 1X ONCE IV Last administered on 07/08/18at 14:17; Start 07/08/18 at 13:30; Stop 07/08/18 at 13:59; Status DC Fentanyl Citrate (Fentanyl 2ml Vial) 100 mcg STK-MED ONCE .ROUTE ; Start at 14:26; Stop 07/08/18 at 14:27; Status DC Rocuronium Alliance (Zemuron) 50 mg STK-MED ONCE .ROUTE ; Start 07/08/18 at 14:46 ; Stop 07/08/18 at 14:47; Status DC Cefazolin Sodium/ Dextrose 50 ml @ 100 mls/hr 1X ONCE IV Last administered on 07/08/18at 16:01; Start 07/08/18 at 16:00; Stop 07/08/18 at 16:29; Status DC Glycopyrrolate (Robinul) 1 mg STK-MED ONCE .ROUTE ; Start 07/08/18 at 16:26; Stop 07/08/18 at 16:27; Status DC Neostigmine Methylsulfate (Bloxiverz) 10 mg STK-MED ONCE .ROUTE ; Start at 16:26; Stop 07/08/18 at 16:27; Status DC Sevoflurane (Ultane) 90 ml STK-MED ONCE IH ; Start 07/08/18 at 16:30; Stop 07/08 at 16:31; Status DC Oxycodone HCl (Roxicodone) 5 mg PRN Q3HRS PRN PO SEVERE PAIN (2ND CHOICE) Last administered on 07/09/18at 08:47; Start 07/08/18 at 17:15 Morphine Sulfate (Morphine Sulfate) 2 mg PRN Q1HR PRN IV MODERATE PAIN Last administered on 07/08/18at 17:30; Start 07/08/18 at 17:15 Fentanyl Citrate (Fentanyl 2ml Vial) 25 mcg PRN Q1HR PRN IV PAIN Last administered on 07/10/18at 23:49; Start 07/08/18 at 17:15 Senna/Docusate Sodium (Senna Plus) 1 tab DAILY PO ; Start 07/09/18 at 09:00 Polyethylene Glycol (miraLAX PACKET) 17 gm PRN DAILY PRN PO CONSTIPATION; Start 07/08/18 at 17:15 Vitamin D (Vitamin D3) 2,000 unit DAILY PO Last administered on 07/12/18at 08:39 ; Start 07/09/18 at 09:00 Ondansetron HCl (Zofran) 4 mg PRN Q4HRS PRN IV NAUSEA/VOMITING Last administered on 07/09/18at 13:37; Start 07/08/18 at 17:15 Aspirin (Aureliano Aspirin) 325 mg DAILYWBKFT PO Last administered on 07/12/18at 08: 38; Start 07/09/18 at 08:00 Magnesium Hydroxide (Milk Of Magnesia) 2,400 mg 1X PRN PRN PO CONSTIPATION; Start 07/09/18 at 06:00; Stop 07/10/18 at 05:59; Status DC Bisacodyl (Dulcolax Supp) 10 mg 1X PRN PRN PA CONSTIPATION; Start 07/09/18 at 16 :00; Stop 07/10/18 at 15:59; Status DC Acetaminophen/ Hydrocodone Bitart (Lortab 7.5/325) 1 tab PRN Q4HRS PRN PO MODERATE PAIN Last administered on 07/09/18at 06:19; Start 07/08/18 at 17:15 Morphine Sulfate (Morphine Sulfate) 4 mg PRN Q2HR PRN IV SEVERE PAIN Last administered on 07/09/18at 13:35; Start 07/08/18 at 17:15 Acetaminophen/ Hydrocodone Bitart (Lortab 7.5/325) 2 tab PRN Q4HRS PRN PO SEVERE PAIN (1ST CHOICE) Last administered on 07/12/18at 08:45; Start 07/08/18 at 17:15 Dextrose (Dextrose 50%-Water Syringe) 12.5 gm PRN Q15MIN PRN IV SEE COMMENTS; Start 07/08/18 at 17:15 Cefazolin Sodium/ Dextrose 50 ml @ 100 mls/hr Q6H IV Last administered on at 10:06; Start 07/08/18 at 22:00; Stop 07/09/18 at 10:29; Status DC Morphine Sulfate (Morphine Sulfate) 2 mg STK-MED ONCE .ROUTE ; Start 07/08/18 at 17:17; Stop 07/08/18 at 17:18; Status DC Albuterol Sulfate (Ventolin Neb Soln) 2.5 mg 1X ONCE NEB Last administered on 07/08/18at 18:31; Start 07/08/18 at 18:30; Stop 07/08/18 at 18:31; Status DC Albuterol Sulfate (Ventolin Neb Soln) 5 mg PRN Q4HRS PRN NEB SHORTNESS OF BREATH Last administered on 07/12/18 09:09; Start 07/09/18 at 14:30 Alprazolam (Xanax) 1 mg PRN BID PRN PO ANXIETY / AGITATION Last administered on 07/11/18 21:21; Start 07/09/18 at 14:30 Atorvastatin Calcium (Lipitor) 5 mg HS PO Last administered on 07/11/18 21:22; Start 07/09/18 at 21:00 Doxazosin Mesylate (Cardura) 4 mg QODAY PO Last administered on 07/11/18 08:19 ; Start 07/11/18 at 09:00 Furosemide (Lasix) 40 mg DAILY PO Last administered on 07/12/18 08:39; Start at 09:00 Acetaminophen/ Hydrocodone Bitart (Lortab 7.5/325) 1 tab PRN Q6HRS PRN PO MODERATE PAIN; Start 07/09/18 at 14:30; Stop 07/10/18 at 15:32; Status DC Insulin Glargine (Lantus) 25 units QHS SQ Last administered on 07/11/18 21:29; Start 07/09/18 at 21:00 Trazodone HCl (Desyrel) 250 mg HS PO Last administered on 07/11/18 21:21; Start 07/09/18 at 21:00 Non-Formulary Medication (Albuterol Sulfate (Proair Hfa Inhaler)) 1 puff PRN Q6HRS PRN INH SHORTNESS OF BREATH; Start 07/09/18 at 14:30; Status UNV Metformin HCl (Glucophage) 1,000 mg BIDWMEALS PO Last administered on 07/12/18 08:38; Start 07/09/18 at 17:00 Sertraline HCl (Zoloft) 25 mg DAILY PO Last administered on 07/12/18 08:38; Start 07/10/18 at 09:00 Spironolactone (Aldactone) 25 mg DAILY PO Last administered on 07/12/18 08:38; Start 07/10/18 at 09:00 Active Scripts Active Reported Xanax (Alprazolam) 1 Mg Tablet 1 Tab PO PRN BID Hydrocodone-Apap 7.5-325 (Hydrocodone Bit/Acetaminophen) 1 Each Tablet 1 Tab PO PRN Q6HRS PRN Proair Hfa Inhaler (Albuterol Sulfate) 8.5 Gm Hfa.aer.ad 1 Puff INH PRN Q6HRS PRN Albuterol Sulfate Neb Soln (Albuterol Sulfate) 2.5 Mg/3 Ml Vial.neb 5 Mg NEB PRN Q4HRS PRN Doxazosin Mesylate 4 Mg Tablet 4 Mg PO QODAY Lasix (Furosemide) 40 Mg Tablet 40 Mg PO DAILY Lantus Solostar (Insulin Glargine,Hum.rec.anlog) 100 Unit/1 Ml Insuln.pen 25 Unit SQ QHS Metformin Hcl 1,000 Mg Tablet 1,000 Mg PO BIDACBL Spironolactone 25 Mg Tablet 25 Mg PO DAILY Aspirin Ec (Aspirin) 81 Mg Tablet.dr 81 Mg PO DAILY Lipitor (Atorvastatin Calcium) 10 Mg Tablet 5 Mg PO HS Trazodone Hcl 50 Mg Tablet 250 Mg PO HS Zoloft (Sertraline Hcl) 25 Mg Tablet 25 Mg PO DAILY Vitals/I & O Vital Sign - Last 24 Hours 07/11/18 07/11/18 07/11/18 07/11/18 13:14 15:00 19:00 19:45 Temp 97.6 97.9 97.6 97.9 Pulse 90 92 Resp 18 18 B/P (MAP) 93/54 (67) 114/63 (80) Pulse Ox 91 93 93 O2 Delivery Room Air Room Air Room Air Room Air 07/11/18 07/11/18 07/11/18 07/12/18 21:22 22:25 23:00 03:00 Temp 97.7 97.7 97.7 97.7 Pulse 96 90 Resp 16 16 18 18 B/P (MAP) 110/69 (83) 108/67 (81) Pulse Ox 93 93 O2 Delivery Room Air Room Air Room Air 07/12/18 07/12/18 07/12/18 07/12/18 07:00 08:00 09:09 09:45 Temp 97.9 97.9 Pulse 91 Resp 18 B/P (MAP) 106/55 (72) Pulse Ox 94 90 90 O2 Delivery Room Air Room Air Room Air Room Air O2 Flow Rate 2.0 Intake and Output 07/11/18 07/11/18 07/12/18 15:00 23:00 07:00 Intake Total 550 ml Output Total 1700 ml Balance -1150 ml LEE FITCH MD Jul 12, 2018 11:10
--- NOTE | 2018-07-12 14:29 | PDOC3 ---
Discharge Summary Date of Admission: Jul 07, 2018 Date of Discharge: Jul 12, 2018 Follow-Up: 1-2 days Admitting Diagnosis comment: DISCHARGE DIAGNOSIS Chief Complaint IMPRESSION== POD #3 Tib/fib ORIF Anxiety Arthritis COPD Depression Diabetes HLD Insomnia acute blood loss anemia, expected History of Present Illness History of Present Illness Pt. seen and examined Pt. alert and oriented VSS DW nursing Bandage clean, dry and intact w/ alecia wraps Neurovascularly intact Vitals Vitals Vital Signs Date Time Temp Pulse Resp B/P (MAP) Pulse Ox O2 Delivery O2 Flow Rate FiO2 07/12/18 09:45 90 Room Air 2.0 07/12/18 07:00 97.9 91 18 106/55 (72) 97.9 Physical Exam General: Alert, Oriented X3, Cooperative, No acute distress Heart: Regular rate, Normal S1, Normal S2, No murmurs Lungs: Wheezing Abdomen: Soft, No tenderness Extremities: No clubbing, No cyanosis, Normal pulses, Other (Clean dry intact dressing with ALECIA wraps in place. Pt can move his toes and has sensation to light touch.) Skin: No rashes, No breakdown FINAL DIAGNOSIS Problems Medical Problems: (1) Fracture of distal end of tibia with fibula Status: Acute Brief Hospital Course Mr. Rojas is a 73 old [sex] who presented with [ TIB/FIB FX ] CONDITION AT DISCHARGE: Improved Discharge Medications Current Medications Dextrose/Lactated Ringer's 1,000 ml @ 75 mls/hr 1X ONCE IV Last administered on 07/07/18at 20:00; Start 07/07/18 at 20:00; Stop 07/08/18 at 09:19; Status DC Morphine Sulfate (Morphine Sulfate) 5 mg Q2H PRN IV pain Last administered on at 10:42; Start 07/07/18 at 20:00; Stop 07/08/18 at 18:23; Status DC Sodium Chloride 1,000 ml @ 1,000 mls/hr 1X ONCE IV Last administered on at 20:43; Start 07/07/18 at 21:00; Stop 07/07/18 at 21:59; Status DC Dextrose/Lactated Ringer's 1,000 ml @ 125 mls/hr 1X ONCE IV Last administered on 07/07/18at 21:45; Start 07/07/18 at 21:45; Stop 07/08/18 at 05:44 ; Status DC Sodium Chloride 1,000 ml @ 1,000 mls/hr Q1H IV Last administered on 07/08/18at 00:54; Start 07/07/18 at 23:00; Stop 07/08/18 at 01:19; Status DC Ceftriaxone Sodium 50 ml @ 100 mls/hr 1X ONCE IV ; Start 07/07/18 at 23:00; Stop 07/07/18 at 23:29; Status Cancel Ceftriaxone Sodium (Rocephin) 1 gm 1X ONCE IVP Last administered on 07/08/18at 01:00; Start 07/08/18 at 01:00; Stop 07/08/18 at 01:01; Status DC Ondansetron HCl (Zofran) 4 mg PRN Q6HRS PRN IV NAUSEA/VOMITING; Start 07/08/18 at 09:15; Stop 07/08/18 at 18:23; Status DC Fentanyl Citrate (Fentanyl 2ml Vial) 25 mcg PRN Q5MIN PRN IV MILD PAIN; Start 07/08/18 at 09:15; Stop 07/08/18 at 18:23; Status DC Fentanyl Citrate (Fentanyl 2ml Vial) 50 mcg PRN Q5MIN PRN IV MODERATE TO SEVERE PAIN Last administered on 07/08/18at 17:46; Start 07/08/18 at 09:15; Stop 07/08/18 at 18:23; Status DC Morphine Sulfate (Morphine Sulfate) 1 mg PRN Q10MIN PRN IV SEVERE PAIN; Start 07/08/18 at 09:15; Stop 07/08/18 at 18:23; Status DC Ringer's Solution 1,000 ml @ 30 mls/hr Q24H IV Last administered on 07/08/18at 13:24; Start 07/08/18 at 09:03; Stop 07/08/18 at 18:23; Status DC Lidocaine HCl (Xylocaine-Mpf 1% 2ml Vial) 2 ml 1X PRN PRN ID IV START; Start at 09:15; Stop 07/08/18 at 23:00; Status DC Hydromorphone HCl (Dilaudid) 0.5 mg PRN Q10MIN PRN IV SEV PAIN, Second choice; Start 07/08/18 at 09:15; Stop 07/08/18 at 18:23; Status DC Prochlorperazine Edisylate (Compazine) 5 mg PACU PRN PRN IV NAUSEA, MRX1 Last administered on 07/08/18at 17:46; Start 07/08/18 at 09:15; Stop 07/08/18 at 18:23 ; Status DC Lidocaine HCl (Lidocaine Pf 2% Vial) 5 ml STK-MED ONCE .ROUTE ; Start 07/08/18 at 12:25; Stop 07/08/18 at 12:26; Status DC Propofol 20 ml @ As Directed STK-MED ONCE IV ; Start 07/08/18 at 12:26; Stop at 12:27; Status DC Dexamethasone Sodium Phosphate (Decadron) 20 mg STK-MED ONCE .ROUTE ; Start at 12:26; Stop 07/08/18 at 12:27; Status DC Ondansetron HCl (Zofran) 4 mg STK-MED ONCE .ROUTE ; Start 07/08/18 at 12:26; Stop 07/08/18 at 12:27; Status DC Fentanyl Citrate (Fentanyl 2ml Vial) 100 mcg STK-MED ONCE .ROUTE ; Start at 12:26; Stop 07/08/18 at 12:27; Status DC Bupivacaine HCl/ Epinephrine Bitart (Marcaine-Epi 0.25%-[id number]) 50 ml STK-MED ONCE .ROUTE Last administered on 07/08/18at 16:30; Start 07/08/18 at 11:39; Stop 07/08/18 at 12:39; Status DC Rocuronium [place] (Zemuron) 50 mg STK-MED ONCE .ROUTE ; Start 07/08/18 at 12:57 ; Stop 07/08/18 at 12:58; Status DC Cefazolin Sodium/ Dextrose 50 ml @ 100 mls/hr 1X ONCE IV Last administered on 07/08/18at 14:17; Start 07/08/18 at 13:30; Stop 07/08/18 at 13:59; Status DC Fentanyl Citrate (Fentanyl 2ml Vial) 100 mcg STK-MED ONCE .ROUTE ; Start at 14:26; Stop 07/08/18 at 14:27; Status DC Rocuronium [place] (Zemuron) 50 mg STK-MED ONCE .ROUTE ; Start 07/08/18 at 14:46 ; Stop 07/08/18 at 14:47; Status DC Cefazolin Sodium/ Dextrose 50 ml @ 100 mls/hr 1X ONCE IV Last administered on 07/08/18at 16:01; Start 07/08/18 at 16:00; Stop 07/08/18 at 16:29; Status DC Glycopyrrolate (Robinul) 1 mg STK-MED ONCE .ROUTE ; Start 07/08/18 at 16:26; Stop 07/08/18 at 16:27; Status DC Neostigmine Methylsulfate (Bloxiverz) 10 mg STK-MED ONCE .ROUTE ; Start at 16:26; Stop 07/08/18 at 16:27; Status DC Sevoflurane (Ultane) 90 ml STK-MED ONCE IH ; Start 07/08/18 at 16:30; Stop 07/08 at 16:31; Status DC Oxycodone HCl (Roxicodone) 5 mg PRN Q3HRS PRN PO SEVERE PAIN (2ND CHOICE) Last administered on 07/09/18at 08:47; Start 07/08/18 at 17:15 Morphine Sulfate (Morphine Sulfate) 2 mg PRN Q1HR PRN IV MODERATE PAIN Last administered on 07/08/18at 17:30; Start 07/08/18 at 17:15 Fentanyl Citrate (Fentanyl 2ml Vial) 25 mcg PRN Q1HR PRN IV PAIN Last administered on 07/10/18at 23:49; Start 07/08/18 at 17:15 Senna/Docusate Sodium (Senna Plus) 1 tab DAILY PO ; Start 07/09/18 at 09:00 Polyethylene Glycol (miraLAX PACKET) 17 gm PRN DAILY PRN PO CONSTIPATION; Start 07/08/18 at 17:15 Vitamin D (Vitamin D3) 2,000 unit DAILY PO Last administered on 07/12/18at 08:39 ; Start 07/09/18 at 09:00 Ondansetron HCl (Zofran) 4 mg PRN Q4HRS PRN IV NAUSEA/VOMITING Last administered on 07/09/18at 13:37; Start 07/08/18 at 17:15 Aspirin (Aureliano Aspirin) 325 mg DAILYWBKFT PO Last administered on 07/12/18at 08: 38; Start 07/09/18 at 08:00 Magnesium Hydroxide (Milk Of Magnesia) 2,400 mg 1X PRN PRN PO CONSTIPATION; Start 07/09/18 at 06:00; Stop 07/10/18 at 05:59; Status DC Bisacodyl (Dulcolax Supp) 10 mg 1X PRN PRN VA CONSTIPATION; Start 07/09/18 at 16 :00; Stop 07/10/18 at 15:59; Status DC Acetaminophen/ Hydrocodone Bitart (Lortab 7.5/325) 1 tab PRN Q4HRS PRN PO MODERATE PAIN Last administered on 07/09/18at 06:19; Start 07/08/18 at 17:15 Morphine Sulfate (Morphine Sulfate) 4 mg PRN Q2HR PRN IV SEVERE PAIN Last administered on 07/09/18at 13:35; Start 07/08/18 at 17:15 Acetaminophen/ Hydrocodone Bitart (Lortab 7.5/325) 2 tab PRN Q4HRS PRN PO SEVERE PAIN (1ST CHOICE) Last administered on 07/12/18at 08:45; Start 07/08/18 at 17:15 Dextrose (Dextrose 50%-Water Syringe) 12.5 gm PRN Q15MIN PRN IV SEE COMMENTS; Start 07/08/18 at 17:15 Cefazolin Sodium/ Dextrose 50 ml @ 100 mls/hr Q6H IV Last administered on at 10:06; Start 07/08/18 at 22:00; Stop 07/09/18 at 10:29; Status DC Morphine Sulfate (Morphine Sulfate) 2 mg STK-MED ONCE .ROUTE ; Start 07/08/18 at 17:17; Stop 07/08/18 at 17:18; Status DC Albuterol Sulfate (Ventolin Neb Soln) 2.5 mg 1X ONCE NEB Last administered on 07/08/18at 18:31; Start 07/08/18 at 18:30; Stop 07/08/18 at 18:31; Status DC Albuterol Sulfate (Ventolin Neb Soln) 5 mg PRN Q4HRS PRN NEB SHORTNESS OF BREATH Last administered on 07/12/18at 09:09; Start 07/09/18 at 14:30 Alprazolam (Xanax) 1 mg PRN BID PRN PO ANXIETY / AGITATION Last administered on 07/11/18 21:21; Start 07/09/18 at 14:30 Atorvastatin Calcium (Lipitor) 5 mg HS PO Last administered on 07/11/18 21:22; Start 07/09/18 at 21:00 Doxazosin Mesylate (Cardura) 4 mg QODAY PO Last administered on 07/11/18 08:19 ; Start 07/11/18 at 09:00 Furosemide (Lasix) 40 mg DAILY PO Last administered on 07/12/18 08:39; Start at 09:00 Acetaminophen/ Hydrocodone Bitart (Lortab 7.5/325) 1 tab PRN Q6HRS PRN PO MODERATE PAIN; Start 07/09/18 at 14:30; Stop 07/10/18 at 15:32; Status DC Insulin Glargine (Lantus) 25 units QHS SQ Last administered on 07/11/18 21:29; Start 07/09/18 at 21:00 Trazodone HCl (Desyrel) 250 mg HS PO Last administered on 07/11/18 21:21; Start 07/09/18 at 21:00 Non-Formulary Medication (Albuterol Sulfate (Proair Hfa Inhaler)) 1 puff PRN Q6HRS PRN INH SHORTNESS OF BREATH; Start 07/09/18 at 14:30; Status UNV Metformin HCl (Glucophage) 1,000 mg BIDWMEALS PO Last administered on 07/12/18 08:38; Start 07/09/18 at 17:00 Sertraline HCl (Zoloft) 25 mg DAILY PO Last administered on 07/12/18 08:38; Start 07/10/18 at 09:00 Spironolactone (Aldactone) 25 mg DAILY PO Last administered on 07/12/18 08:38; Start 07/10/18 at 09:00 Active Scripts Active Reported Xanax (Alprazolam) 1 Mg Tablet 1 Tab PO PRN BID Hydrocodone-Apap 7.5-325 (Hydrocodone Bit/Acetaminophen) 1 Each Tablet 1 Tab PO PRN Q6HRS PRN Proair Hfa Inhaler (Albuterol Sulfate) 8.5 Gm Hfa.aer.ad 1 Puff INH PRN Q6HRS PRN Albuterol Sulfate Neb Soln (Albuterol Sulfate) 2.5 Mg/3 Ml Vial.neb 5 Mg NEB PRN Q4HRS PRN Doxazosin Mesylate 4 Mg Tablet 4 Mg PO QODAY Lasix (Furosemide) 40 Mg Tablet 40 Mg PO DAILY Lantus Solostar (Insulin Glargine,Hum.rec.anlog) 100 Unit/1 Ml Insuln.pen 25 Unit SQ QHS Metformin Hcl 1,000 Mg Tablet 1,000 Mg PO BIDACBL Spironolactone 25 Mg Tablet 25 Mg PO DAILY Aspirin Ec (Aspirin) 81 Mg Tablet.dr 81 Mg PO DAILY Lipitor (Atorvastatin Calcium) 10 Mg Tablet 5 Mg PO HS Trazodone Hcl 50 Mg Tablet 250 Mg PO HS Zoloft (Sertraline Hcl) 25 Mg Tablet 25 Mg PO DAILY Vital Signs Vital Signs Date Time Temp Pulse Resp B/P (MAP) Pulse Ox O2 Delivery O2 Flow Rate FiO2 07/12/18 09:45 90 Room Air 2.0 07/12/18 07:00 97.9 91 18 106/55 (72) 97.9 Labs Laboratory Tests Test 07/10/18 16:41 07/10/18 20:17 07/11/18 04:00 07/11/18 07:26 Glucose (Fingerstick) 105 mg/dL (70-99) 110 mg/dL (70-99) 99 mg/dL (70-99) White Blood Count 7.5 x10^3/uL (4.0-11.0) Red Blood Count 2.61 x10^6/uL (4.30-5.70) Hemoglobin 8.1 g/dL (13.0-17.5) Hematocrit 23.7 % (39.0-53.0) Mean Corpuscular Volume 91 fL (79-100) Mean Corpuscular Hemoglobin 31 pg (25-35) Mean Corpuscular Hemoglobin Concent 34 g/dL (31-37) Red Cell Distribution Width 14.7 % (11.5-14.5) Platelet Count 152 x10^3/uL (140-400) Neutrophils (%) (Auto) 59 % (31-73) Lymphocytes (%) (Auto) 27 % (24-48) Monocytes (%) (Auto) 12 % (0-9) Eosinophils (%) (Auto) 2 % (0-3) Basophils (%) (Auto) 0 % (0-3) Neutrophils # (Auto) 4.4 x10^3uL (1.8-7.7) Lymphocytes # (Auto) 2.0 x10^3/uL (1.0-4.8) Monocytes # (Auto) 0.9 x10^3/uL (0.0-1.1) Eosinophils # (Auto) 0.1 x10^3/uL (0.0-0.7) Basophils # (Auto) 0.0 x10^3/uL (0.0-0.2) Sodium Level 139 mmol/L (136-145) Potassium Level 3.3 mmol/L (3.5-5.1) Chloride Level 105 mmol/L (98-107) Carbon Dioxide Level 28 mmol/L (21-32) Anion Gap 6 (6-14) Blood Urea Nitrogen 5 mg/dL (8-26) Creatinine 0.9 mg/dL (0.7-1.3) Estimated GFR (Cockcroft-Gault) 83.2 Glucose Level 108 mg/dL (70-99) Calcium Level 8.0 mg/dL (8.5-10.1) Test 07/11/18 11:21 07/11/18 16:55 07/11/18 21:18 07/12/18 03:40 Glucose (Fingerstick) 102 mg/dL (70-99) 87 mg/dL (70-99) 141 mg/dL (70-99) White Blood Count 5.7 x10^3/uL (4.0-11.0) Red Blood Count 2.59 x10^6/uL (4.30-5.70) Hemoglobin 7.8 g/dL (13.0-17.5) Hematocrit 23.6 % (39.0-53.0) Mean Corpuscular Volume 91 fL (79-100) Mean Corpuscular Hemoglobin 30 pg (25-35) Mean Corpuscular Hemoglobin Concent 33 g/dL (31-37) Red Cell Distribution Width 14.5 % (11.5-14.5) Platelet Count 185 x10^3/uL (140-400) Neutrophils (%) (Auto) 52 % (31-73) Lymphocytes (%) (Auto) 28 % (24-48) Monocytes (%) (Auto) 15 % (0-9) Eosinophils (%) (Auto) 4 % (0-3) Basophils (%) (Auto) 1 % (0-3) Neutrophils # (Auto) 3.0 x10^3uL (1.8-7.7) Lymphocytes # (Auto) 1.6 x10^3/uL (1.0-4.8) Monocytes # (Auto) 0.9 x10^3/uL (0.0-1.1) Eosinophils # (Auto) 0.2 x10^3/uL (0.0-0.7) Basophils # (Auto) 0.0 x10^3/uL (0.0-0.2) Sodium Level 142 mmol/L (136-145) Potassium Level 3.5 mmol/L (3.5-5.1) Chloride Level 107 mmol/L (98-107) Carbon Dioxide Level 31 mmol/L (21-32) Anion Gap 4 (6-14) Blood Urea Nitrogen 6 mg/dL (8-26) Creatinine 1.0 mg/dL (0.7-1.3) Estimated GFR (Cockcroft-Gault) 73.7 Glucose Level 108 mg/dL (70-99) Calcium Level 7.7 mg/dL (8.5-10.1) Test 07/12/18 07:55 Glucose (Fingerstick) 97 mg/dL (70-99) Laboratory Tests Test 07/11/18 16:55 07/11/18 21:18 07/12/18 03:40 07/12/18 07:55 Glucose (Fingerstick) 87 mg/dL (70-99) 141 mg/dL (70-99) 97 mg/dL (70-99) White Blood Count 5.7 x10^3/uL (4.0-11.0) Red Blood Count 2.59 x10^6/uL (4.30-5.70) Hemoglobin 7.8 g/dL (13.0-17.5) Hematocrit 23.6 % (39.0-53.0) Mean Corpuscular Volume 91 fL (79-100) Mean Corpuscular Hemoglobin 30 pg (25-35) Mean Corpuscular Hemoglobin Concent 33 g/dL (31-37) Red Cell Distribution Width 14.5 % (11.5-14.5) Platelet Count 185 x10^3/uL (140-400) Neutrophils (%) (Auto) 52 % (31-73) Lymphocytes (%) (Auto) 28 % (24-48) Monocytes (%) (Auto) 15 % (0-9) Eosinophils (%) (Auto) 4 % (0-3) Basophils (%) (Auto) 1 % (0-3) Neutrophils # (Auto) 3.0 x10^3uL (1.8-7.7) Lymphocytes # (Auto) 1.6 x10^3/uL (1.0-4.8) Monocytes # (Auto) 0.9 x10^3/uL (0.0-1.1) Eosinophils # (Auto) 0.2 x10^3/uL (0.0-0.7) Basophils # (Auto) 0.0 x10^3/uL (0.0-0.2) Sodium Level 142 mmol/L (136-145) Potassium Level 3.5 mmol/L (3.5-5.1) Chloride Level 107 mmol/L (98-107) Carbon Dioxide Level 31 mmol/L (21-32) Anion Gap 4 (6-14) Blood Urea Nitrogen 6 mg/dL (8-26) Creatinine 1.0 mg/dL (0.7-1.3) Estimated GFR (Cockcroft-Gault) 73.7 Glucose Level 108 mg/dL (70-99) Calcium Level 7.7 mg/dL (8.5-10.1) Allergies Allergies Coded Allergies Type Severity Reaction Last Updated Verified No Known Drug Allergies 07/08/18 No Disposition/Orders: D/C to Another Facility (TO HEALTH CARE RESORT) Patient Instructions D/C PLANNING 36 MIN LEE FITCH MD Jul 12, 2018 14:29
--- NOTE | 2018-07-12 14:30 | DISCH ---
DISCHARGE DISCHARGE INFORMATION: FINAL DIAGNOSIS Problems Medical Problems: (1) Fracture of distal end of tibia with fibula Status: Acute CONDITION ON DISCHARGE: Stable CODE STATUS: Code Status: Full MCC: SNF STAY <30 DAYS: Yes POST DISCHARGE ORDERS: ACTIVITY ORDERS: Activity as tolerated WEIGHT BEARING STATUS: No restrictions DIET AFTER DISCHARGE: Cardiac CHECKS AFTER DISCHARGE: CHECKS AFTER DISCHARGE: Check blood press - daily TREATMENT/EQUIPMENT ORDERS: ADAPTIVE EQUIPMENT NEEDED: None Physical Therapy For: Evalulation/Treatment Occupational Therapy For: Evaluation/Treatment DISCHARGE MEDICATIONS: Home Meds Reported Medications Alprazolam (XANAX) 1 Mg Tablet, 1 TAB PO PRN BID, #60 TAB 09/25/16 Hydrocodone Bit/Acetaminophen (HYDROCODONE-APAP 7.5-325 ) 1 Each Tablet, 1 TAB PO PRN Q6HRS PRN for PAIN, TAB 0 Refills 09/25/16 Albuterol Sulfate (PROAIR HFA INHALER) 8.5 Gm Hfa.aer.ad, 1 PUFF INH PRN Q6HRS PRN for SHORTNESS OF BREATH, INHALER 0 Refills 09/25/16 Albuterol Sulfate (ALBUTEROL SULFATE NEB SOLN) 2.5 Mg/3 Ml Vial.neb, 5 MG NEB PRN Q4HRS PRN for PRN Q4HR, EACH 0 Refills 09/25/16 Doxazosin Mesylate (DOXAZOSIN MESYLATE) 4 Mg Tablet, 4 MG PO QODAY, TAB 09/25/16 Furosemide (LASIX) 40 Mg Tablet, 40 MG PO DAILY, TAB 09/25/16 Insulin Glargine,Hum.rec.anlog (LANTUS SOLOSTAR) 100 Unit/1 Ml Insuln.pen, 25 UNIT SQ QHS, #15 ML 5 Refills 09/25/16 Metformin Hcl (METFORMIN HCL) 1,000 Mg Tablet, 1000 MG PO BIDACBL for ANTI- DIABETIC, TAB 0 Refills 09/25/16 Spironolactone (SPIRONOLACTONE) 25 Mg Tablet, 25 MG PO DAILY, TAB 09/25/16 Aspirin (ASPIRIN EC) 81 Mg Tablet.dr, 81 MG PO DAILY 09/25/16 Atorvastatin Calcium (LIPITOR) 10 Mg Tablet, 5 MG PO HS for FOR CHOLESTEROL, # 30 TAB 0 Refills 09/25/16 Trazodone Hcl (TRAZODONE HCL) 50 Mg Tablet, 250 MG PO HS, TAB 09/25/16 Sertraline Hcl (ZOLOFT) 25 Mg Tablet, 25 MG PO DAILY for ANTI-DEPRESSANT, TAB 0 Refills 09/25/16 Discontinued Reported Medications Tiotropium [place] (SPIRIVA) 18 Mcg Cap.w.dev, 1 INH IH DAILY, #1 INH 0 Refills 09/25/16 Cholecalciferol (Vitamin D3) (VITAMIN D3) 5,000 Unit Tablet, 5000 UNIT PO DAILY 09/25/16 LEE FITCH MD Jul 12, 2018 14:30
[2018-07-12 15:00] VITALS: BP 89/59
[2018-07-12] MEDS: ALPRAZolam 1 MG TABLET PO PRN (16:07)
--- NOTE | 2018-07-12 16:23 | EKG ---
[facility] [address] [place] [address] Test Date: 2018-07-12 Test Time: 16:15:49 Pat Name: MARTINE PICHARDO Department: Room: 436 1 Gender: M Reinstatement Clerk: LYNNETTE : 1945 Requested By: LEE FITCH Order Number: [id number] Reading MD: Marck Perez MD Measurements Intervals Peterson Rate: 160 P: IN: QRS: -3 QRSD: 96 T: -42 QT: 272 QTc: 446 Interpretive Statements SUPRAVENTRICULAR TACHYCARDIA LEFTWARD AXIS ST & T ABNORMALITY, CONSIDER ANTEROLATERAL ISCHEMIA OR LEFT VENTRICULAR STRAIN INFEROLATERAL ISCHEMIA OR LEFT VENTRICULAR STRAIN Electronically Signed On 07-13-2018 2:27:27 CDT by Marck Perez MD
[2018-07-12] MEDS ORDERED: METOPROLOL TART IMMED RELEASE 25 MG TABLET. PO STA (19:00)
[2018-07-12 19:11] VITALS: BP 106/55
--- NOTE | 2018-07-12 21:51 | CONS ---
DATE OF CONSULTATION: REVIEW OF RECORD: This is a 73-year-old gentleman that had a slip and fall in his kitchen the other day and apparently broke his ankle with a tib-fib fracture. He was admitted to the hospital. has done internal rigid fixation, ORIF. PAST MEDICAL HISTORY: Fractured left ankle, anxiety, arthritis, COPD, depression, diabetes, HLD, insomnia, acute blood loss anemia expected. MEDICATIONS: Multiple and reviewed including metformin, Zoloft, Aldactone, trazodone, Cardura, Lasix, Lipitor, aspirin. ALLERGIES: None listed. PHYSICAL EXAMINATION: DERMATOLOGY: The patient has elongated mycotic nails of all digits. Minimal Lucas's horn curl around the tip of the toes make an indentation into the skin. No break in the skin is noted. No signs of ulceration. There is a scab abrasion on the top of the left great toe, possibly from his fall accident and appeared to be resolving without signs of infection. VASCULAR: Pedal pulses on the right foot are diminished, but present. Skin temperature is slightly cool distally. Left foot is unable to be examined due to the extensive graft from the fracture and the surgery. MUSCULOSKELETAL: No significant bunion or hammertoe deformity. Fracture tib-fib left foot. NEUROLOGIC: The patient relates no numbness, burning and tingling and all sharp instrumentation and sharp and dull appropriately. IMPRESSION: 1. History of insulin-dependent diabetes with some diminished vascularity. 2. Clinical evidence of longstanding onychomycosis, onychocryptosis, onycholysis of all 10 toenails with no infection present. 3. Tib-fib fracture, left with surgical intervention recently here in the hospital. PLAN: Debridement of all mycotic nails was performed. Advised the patient not to go to the rag washer and that in light of his diabetes, he needs to be seen professionally by a sueding machine operator. Followup was encouraged in 2.5 to 3 months. JOHANNY DOS SANTOS DPM DR: STEVE/dara JOB#: [id number] / [id number]
== END 2018-07-12 20:10 | DRG 492 ==
LOC: ER 19:41 → 4 NORTH 21:15
PROVIDERS: ADMIT Family Medicine; ATTEND Family Medicine
PROC: 0QSH04Z Reposition Left Tibia with Internal Fixation Device, Open Approach (ICD-10-PCS; principal; 2018-07-08 13:00)
PROC: 0QSK04Z Reposition Left Fibula with Internal Fixation Device, Open Approach (ICD-10-PCS; 2018-07-08 13:00)
DX: S82.462A Displaced segmental fracture of shaft of left fibula, initial encounter for closed fracture (principal); E43 Unspecified severe protein-calorie malnutrition; D62 Acute posthemorrhagic anemia; E87.2 Acidosis; S82.262A Displaced segmental fracture of shaft of left tibia, initial encounter for closed fracture; B35.1 Tinea unguium; E11.9 Type 2 diabetes mellitus without complications; E78.5 Hyperlipidemia, unspecified; F32.9 Major depressive disorder, single episode, unspecified; F41.9 Anxiety disorder, unspecified; G47.00 Insomnia, unspecified; I10 Essential (primary) hypertension; J44.9 Chronic obstructive pulmonary disease, unspecified; L60.0 Ingrowing nail; L60.1 Onycholysis; M19.90 Unspecified osteoarthritis, unspecified site; W18.39XA Other fall on same level, initial encounter; S82.63XA Displaced fracture of lateral malleolus of unspecified fibula, initial encounter for closed fracture; S82.492A Other fracture of shaft of left fibula, initial encounter for closed fracture; Z60.2 Problems related to living alone; S82.832A Other fracture of upper and lower end of left fibula, initial encounter for closed fracture; Z79.4 Long term (current) use of insulin; Z82.49 Family history of ischemic heart disease and other diseases of the circulatory system; Y93.89 Activity, other specified; Y92.89 Other specified places as the place of occurrence of the external cause; Y99.8 Other external cause status
CPT/HCPCS: 36415; 71045; 73590; 73600; 73700; 76000; 80048; 80053; 81001; 82306; 82962; 83605; 85014; 85018; 85025; 85610; 93005; 94640; 94760; 96361; 96365; 96366; 99291; C1713; C1769; J0690; J0696; J0780; J1100; J1815; J2001; J2270; J2405; J2704; J2710; J3010; J3490; J7030; J7120; J7613; 97110; 97116; 97530; 97535

== ENCOUNTER 2019-02-05 04:31 | Emergency (ER) | payer MEDICARE ==
[~2019-02-05] VITALS: Ht 182.9 cm; Wt 99.8 kg
[~2019-02-05 04:31] MED LIST changes: +ALBU2.5V8 INH; -HYDR-2762 PO; +HYDR-2765 PO; -PROAIR HFA8.5 GM INH; +TRAZ-118 PO; -TRAZ-85 PO
--- NOTE | 2019-02-05 04:58 | PHYS DOC ---
Past Medical History Past Medical History: Depression, Diabetes-Type I, High Cholesterol, Hypertension Additional Past Medical Histor: INSOMNIA Past Surgical History: Other Additional Past Surgical Histo: Repair of Lt TIB FIB 07/21/18 Alcohol Use: None Drug Use: None Adult General Chief Complaint Chief Complaint: MECHANICAL FALL HPI HPI Patient is a 73 year old male was brought here from home for evaluation after he fell on the floor this morning. Patient said he drank about a pint of whiskey earlier. He was tried to walk to the kitchen to get something to drink , he tripped on his feet, fell down on his right side, hit head on the ground, There was no loss of consciousness per patient. He tried to get up but he could not because he was too weak to get up so he pushed the medical alert. Patient denied any chest pain, no abdominal pain, no back pain, no extremities pain. Review of Systems Review of Systems Constitutional: Denies fever or chills [] Eyes: Denies change in visual acuity, redness, or eye pain [] HENT: Denies nasal congestion or sore throat [] Respiratory: Denies cough or shortness of breath [] Cardiovascular: No additional information not addressed in HPI [] GI: Denies abdominal pain, nausea, vomiting, bloody stools or diarrhea [] : Denies dysuria or hematuria [] Musculoskeletal: Denies back pain or joint pain [] Integument: Positive for skin contusion on face. Neurologic: Denies headache, focal weakness or sensory changes. Positive for generalized weakness. Endocrine: Denies polyuria or polydipsia [] All other systems were reviewed and found to be within normal limits, except as documented in this note. Current Medications Current Medications Current Medications Medications (Trade) Dose Ordered Sig/Rajendra Start Time Stop Time Status Last Admin Dose Admin Sodium Chloride 1,000 ml @ 1,000 mls/hr 1X ONCE 02/05/19 06:00 02/05/19 06:59 02/05/19 05:52 1,000 MLS/HR Allergies Allergies Allergies Coded Allergies Type Severity Reaction Last Updated Verified No Known Drug Allergies 07/08/18 No Physical Exam Physical Exam Constitutional: Well developed, well nourished, no acute distress, non-toxic appearance. [] HENT: Normocephalic, There is a large area of skin contusion and abrasion on right side forehead, right side temporal area. , bilateral external ears normal , oropharynx moist, no oral exudates, nose normal. [] Eyes: PERRLA, EOMI, conjunctiva normal, no discharge. [] Neck: Normal range of motion, no tenderness, supple, no stridor. [] Cardiovascular:Heart rate regular rhythm, no murmur [] Lungs & Thorax: Bilateral breath sounds clear to auscultation [] Abdomen: Bowel sounds normal, soft, no tenderness, no masses, no pulsatile masses. [] Skin: Warm, dry, no erythema, no rash. [] Back: No tenderness, no CVA tenderness. [] Extremities: No tenderness, no cyanosis, no clubbing, ROM intact, no edema. NO PELVIC, NO KNEE , NO BACK TENDERNESS TO PALPATION. Neurologic: Alert and oriented X 3, normal motor function, normal sensory function, no focal deficits noted. Patient was laying in bed, was observed able to move all extremities, pulling himself up of his bed, pushing his legs on bed without any problem. Psychologic: Affect normal, judgement normal, mood normal. [] Current Patient Data Vital Signs Vital Signs Date Time Temp Pulse Resp B/P (MAP) Pulse Ox O2 Delivery O2 Flow Rate FiO2 02/05/19 05:41 80 18 96 02/05/19 04:41 98.5 121/63 (82) Room Air 98.5 Lab Values Laboratory Tests Test 02/05/19 05:00 White Blood Count 8.1 x10^3/uL (4.0-11.0) Red Blood Count 4.57 x10^6/uL (4.30-5.70) Hemoglobin 13.3 g/dL (13.0-17.5) Hematocrit 40.4 % (39.0-53.0) Mean Corpuscular Volume 88 fL (79-100) Mean Corpuscular Hemoglobin 29 pg (25-35) Mean Corpuscular Hemoglobin Concent 33 g/dL (31-37) Red Cell Distribution Width 16.4 % (11.5-14.5) H Platelet Count 219 x10^3/uL (140-400) Neutrophils (%) (Auto) 64 % (31-73) Lymphocytes (%) (Auto) 27 % (24-48) Monocytes (%) (Auto) 8 % (0-9) Eosinophils (%) (Auto) 1 % (0-3) Basophils (%) (Auto) 0 % (0-3) Neutrophils # (Auto) 5.1 x10^3uL (1.8-7.7) Lymphocytes # (Auto) 2.2 x10^3/uL (1.0-4.8) Monocytes # (Auto) 0.6 x10^3/uL (0.0-1.1) Eosinophils # (Auto) 0.1 x10^3/uL (0.0-0.7) Basophils # (Auto) 0.0 x10^3/uL (0.0-0.2) Sodium Level 140 mmol/L (136-145) Potassium Level 3.7 mmol/L (3.5-5.1) Chloride Level 105 mmol/L (98-107) Carbon Dioxide Level 24 mmol/L (21-32) Anion Gap 11 (6-14) Blood Urea Nitrogen 16 mg/dL (8-26) Creatinine 1.3 mg/dL (0.7-1.3) Estimated GFR (Cockcroft-Gault) 54.4 BUN/Creatinine Ratio 12 (6-20) Glucose Level 78 mg/dL (70-99) Calcium Level 8.5 mg/dL (8.5-10.1) Magnesium Level 2.1 mg/dL (1.8-2.4) Total Bilirubin 0.1 mg/dL (0.2-1.0) L Aspartate Amino Transferase (AST) 14 U/L (15-37) L Alanine Aminotransferase (ALT) 14 U/L (16-63) L Alkaline Phosphatase 104 U/L (46-116) Troponin I Quantitative < 0.017 ng/mL (0.000-0.055) Total Protein 7.0 g/dL (6.4-8.2) Albumin 2.8 g/dL (3.4-5.0) L Albumin/Globulin Ratio 0.7 (1.0-1.7) L Ethyl Alcohol Level 230 mg/dL (0-10) H Laboratory Tests 02/05/19 05:00 Laboratory Tests 02/05/19 05:00 EKG EKG EKG: RATE OF 76 BPM, SINUS RHYTHM, NO STEMI Radiology/Procedures Radiology/Procedures xray of pelvic: no fracture. [][facility] [address] [place] [address] IMAGING REPORT Signed PATIENT: MARTINE PICHARDO ACCOUNT: [id number] : 1945 LOCATION: ER AGE: 73 SEX: M EXAM STATUS: PRE ER ORD. PHYSICIAN: JEIMY BARRIOS DO REASON: fell, head and neck injury PROCEDURE: CT HEAD AND CERVICAL SPINE WO CT Head W/O Contrast: History: fell, head and neck injury Comparison: none Axial images were obtained without contrast. There is marked diffuse atrophy. There is no mass effect, extraaxial fluid collections or hydrocephalus. There is no focal loss of mehta-white matter distinction to suggest acute ischemia, i.e. stroke. There is moderate mid comparison thickening of the maxillary sinuses and ethmoid air cells. Is mild fluid in the sphenoid sinus. Impression: No acute findings. End impression CT C-Spine without contrast: Clinical History: fell, head and neck injury Technique: Axial helical images of the cervical spine were obtained without contrast, axial coronal and sagittal reconstruction was performed. Findings: There is no loss of vertebral body stature. There is no prevertebral soft tissue swelling. The vertebral bodies are well aligned. There is straightening of the normal cervical lordosis which can be positional or could be chronic. The C1-C2 relationship is normal. The visualized osseous structures appear normal. Evaluation of the central canal is limited without contrast. There is multiple posterior disc bulges resulting in flattening of the thecal sac. At C4-C5, C5-C6 and C6-7 is loss of intervertebral disc height and marginal spurring of the endplates and effacement of CSF around the cord. There does not appear to be gross flattening of the cervical cord. There is marked narrowing of multiple neuroforamen. Impression: Marked degenerative changes. No acute findings. Clinical correlation suggested. PQRS Compliance Statement: One or more of the following individualized dose reduction techniques were utilized for this examination: 1. Automated exposure control 2. Adjustment of the mA and/or kV according to patient size 3. Use of iterative reconstruction technique Electronically signed by: Aiyana Kwon III, MD (02/05/2019 5:40 AM) [facility] DICTATED and SIGNED BY: AIYANA KWON III, MD DATE: 02/05/19 0540 Course & Med Decision Making Course & Med Decision Making Pertinent Labs and Imaging studies reviewed. (See chart for details) Patient has been doing fine in the ER. He was awake, alert, oriented. CT scan of head and c-spine shown no acute problem. PELVIC XRAY WAS NORMAL. His labs work were normal. His alcohol level was elevated. Will give him iv fluid. He said he will call his family to come here to take him home. Dragon Disclaimer Dragon Disclaimer This electronic medical record was generated, in whole or in part, using a voice recognition dictation system. Departure Departure Impression: Primary Impression: Alcohol intoxication Additional Impression: Head injury Disposition: HOME, SELF-CARE Condition: STABLE Referrals: YI LAURENT MD (PCP) follow up with your doctor next week Patient Instructions: Alcohol Intoxication, Head Injury, Adult Problem Qualifiers JEIMY BARRIOS DO Feb 05, 2019 04:58
[2019-02-05 05:30] LABS: BASO % 0 % (0-3); EOS # 0.1 x10^3/uL (0.0-0.7); EOS % 1 % (0-3); HEMATOCRIT 40.4 % (39.0-53.0); HEMOGLOBIN 13.3 g/dL (13.0-17.5); LYMPH # 2.2 x10^3/uL (1.0-4.8); LYMPH % 27 % (24-48); MEAN CORPUSCULAR HEMOGLOBIN 29 pg (25-35); MEAN CORPUSCULAR HGB CONC 33 g/dL (31-37); MEAN CORPUSCULAR VOLUME 88 fL (79-100); MONO # 0.6 x10^3/uL (0.0-1.1); MONO % 8 % (0-9); NEUT # 5.1 x10^3uL (1.8-7.7); NEUT % 64 % (31-73); PLATELET COUNT 219 x10^3/uL (140-400); RED BLOOD COUNT 4.57 x10^6/uL (4.30-5.70); RED CELL DISTRIBUTION WIDTH 16.4 % (11.5-14.5); WHITE BLOOD COUNT 8.1 x10^3/uL (4.0-11.0)
[2019-02-05 05:32] LABS: CALCIUM 8.5 mg/dL (8.5-10.1); CREATININE 1.3 mg/dL (0.7-1.3); GFR 54.4; POTASSIUM 3.7 mmol/L (3.5-5.1)
[2019-02-05 05:39] LABS: ALBUMIN 2.8 g/dL (3.4-5.0); ALBUMIN/GLOBULIN RATIO 0.7 (1.0-1.7); MAGNESIUM 2.1 mg/dL (1.8-2.4); TOTAL BILIRUBIN 0.1 mg/dL (0.2-1.0)
--- NOTE | 2019-02-05 05:43 | RAD ---
CT Head W/O Contrast: History: fell, head and neck injury Comparison: none Axial images were obtained without contrast. There is marked diffuse atrophy. There is no mass effect, extraaxial fluid collections or hydrocephalus. There is no focal loss of mehta-white matter distinction to suggest acute ischemia, i.e. stroke. There is moderate mid comparison thickening of the maxillary sinuses and ethmoid air cells. Is mild fluid in the sphenoid sinus. Impression: No acute findings. End impression CT C-Spine without contrast: Clinical History: fell, head and neck injury Technique: Axial helical images of the cervical spine were obtained without contrast, axial coronal and sagittal reconstruction was performed. Findings: There is no loss of vertebral body stature. There is no prevertebral soft tissue swelling. The vertebral bodies are well aligned. There is straightening of the normal cervical lordosis which can be positional or could be chronic. The C1-C2 relationship is normal. The visualized osseous structures appear normal. Evaluation of the central canal is limited without contrast. There is multiple posterior disc bulges resulting in flattening of the thecal sac. At C4-C5, C5-C6 and C6-7 is loss of intervertebral disc height and marginal spurring of the endplates and effacement of CSF around the cord. There does not appear to be gross flattening of the cervical cord. There is marked narrowing of multiple neuroforamen. Impression: Marked degenerative changes. No acute findings. Clinical correlation suggested. PQRS Compliance Statement: One or more of the following individualized dose reduction techniques were utilized for this examination: 1. Automated exposure control 2. Adjustment of the mA and/or kV according to patient size 3. Use of iterative reconstruction technique Electronically signed by: Ruben Goins III, MD (02/05/2019 5:40 AM) [id number]
[2019-02-05 05:45] LABS: PROTHROMBIN TIME PATIENT 13.1 SEC (11.7-14.0)
[2019-02-05] MEDS ORDERED: IV NORMAL SALINE 1000ML BAG 1,000 ML IV ONE (06:00)
[2019-02-05 06:31] VITALS: BP 120/77
--- NOTE | 2019-02-05 06:58 | RAD ---
One view pelvis: History: Pain status post fall AP view the pelvis was obtained. The visualized osseous structures appear intact. There is obscuration of the bony detail of the sacrum due to overlying bowel gas. Impression: No acute findings. Electronically signed by: Ruben Goins III, MD (02/05/2019 6:55 AM) [facility]
--- NOTE | 2019-02-05 11:51 | EKG ---
[facility] [address] [place] [address] Test Date: 2019-02-05 Test Time: 04:53:45 Pat Name: MARTINE PICHARDO Department: Room: Gender: M Communications [employer]anner: : 1945 Requested By: JEIMY BARRIOS Order Number: [id number] Reading MD: Marck Perez MD Measurements Intervals [place] Rate: 76 P: 108 PA: 172 QRS: 6 QRSD: 96 T: 42 QT: 440 QTc: 500 Interpretive Statements SINUS RHYTHM NON SPECIFIC T ABNORMALITY PROLONGED QT Electronically Signed On 02-06-2019 14:37:27 CDT by Marck Perez MD
== END 2019-02-05 06:30 | disposition home or self-care (01) ==
LOC: ER 04:31
DX: S09.90XA Unspecified injury of head, initial encounter (principal); S19.9XXA Unspecified injury of neck, initial encounter; R10.2 Pelvic and perineal pain; Y90.9 Presence of alcohol in blood, level not specified; F10.129 Alcohol abuse with intoxication, unspecified; E78.00 Pure hypercholesterolemia, unspecified; E10.9 Type 1 diabetes mellitus without complications; I10 Essential (primary) hypertension; F32.9 Major depressive disorder, single episode, unspecified; W18.39XA Other fall on same level, initial encounter; Y93.01 Activity, walking, marching and hiking; Y92.89 Other specified places as the place of occurrence of the external cause; Y99.8 Other external cause status
CPT/HCPCS: 36415; 70450; 72125; 72170; 80053; 82553; 83735; 83880; 84484; 85025; 85610; 85730; 93005; 96360; 99284; G0480; J7030